=== PATIENT | female | born 1995 | race Caucasian/White ===

== ENCOUNTER 2020-05-22 09:46 | Outpatient (CLI) | payer MEDICAID, SELFPAY ==
[2020-05-24 09:04] LABS: COVID-19 RT-PCR UVMMC Result Negative (Negative)
== END 2020-05-22 09:47 | disposition home or self-care (01) ==
LOC: LBO 09:47
PROVIDERS: PCP Family Medicine; Visit Provider Family Medicine
DX: Z20.822 Contact with and (suspected) exposure to COVID-19 (principal)
CPT/HCPCS: U0003

== ENCOUNTER 2020-05-30 08:37 | Outpatient (CLI) | payer MEDICAID, SELFPAY ==
[2020-06-01 14:09] LABS: COVID-19 RT-PCR UVMMC Result Negative (Negative)
== END 2020-05-30 08:38 | disposition home or self-care (01) ==
LOC: LBO 08:37
PROVIDERS: PCP Family Medicine; Visit Provider Physician Assistant
DX: J22 Unspecified acute lower respiratory infection (principal)
CPT/HCPCS: U0003

== ENCOUNTER 2020-11-13 06:51 | Emergency (ER) | payer MEDICAID, SELFPAY ==
[2020-11-13 07:00] VITALS: BP 117/67; PULSE 85; RESP 16; TEMP 37; O2SAT 100
--- NOTE | 2020-11-13 07:07 | ED.GENADUL_ITS ---
Discharge Plan Disposition Patient Disposition: HOME Condition: Stable Discharge Details Clinical Impression: Dental infection, Acute effusion of right ear, Chronic cough Primary Care Provider: Cate Beckman ED Provider: Antoinette Marquis Home Meds and New Rx's Prescriptions: New albuterol sulfate 90 mcg/actuation aerosol powdr breath activated 2 inh IH Q6H PRN (Reason: shortness of breath or wheezing) Qty: 1 RF: 0 methylprednisolone [Methylpred DP] 4 mg tablets,dose pack 4 mg PO PER PKG DIR MDD see package directions 6 Days Qty: 6 RF: 0 amoxicillin-pot clavulanate [Augmentin] 875-125 mg tablet 1 tab PO BID 10 Days Qty: 20 RF: 0 Continued albuterol sulfate [Proventil HFA] 90 mcg/actuation HFA aerosol inhaler 2 puff inhalation Q6H PRN (Reason: shortness of breath or wheezing) Qty: 8.5 RF: 0 acetaminophen [Tylenol Extra Strength] 500 mg Tablet 1,000 mg PO QID PRNRF: 0 Discharge Instructions Instructions: Ear Infection (ED), Toothache (ED), Acute Cough (ED) Additional Instructions: Drink plenty of fluids and get plenty of rest. Your prescriptions have been sent electronically to your pharmacy. Call the pharmacy to make sure your prescriptions are ready before pickup. Take the pr escriptions as directed. Take the antibiotic and steroids as directed until finished. Use the albuterol inhaler as needed and directed for coughing or shortness of breath. You can take pecm-kqf-zfvokhq cough and cold medications such as Robitussin or Mucinex to help with coughing and chest congestion. Follow-up with your upcoming dentist appointment in the next few weeks. Return immediately to the emergency department if you develop any worsening or new concerning symptoms. Discharge Data Discharge Physician: Antoinette Marquis Medical Decision Making 25-year-old female presents with right upper dental pain and cough for the past 8 weeks, worse recently with radiation from her tooth to her right ear and right throat and worsening cough with postnasal drip and occasional shortness of breath. Vitals within normal limits. Patient appears comfortable and nontoxic. She is tearful and states that she has been overwhelmed at home with childcare and lack of sleep due to her dental pain. Her right TM notes an effusion but no drainage. Posterior oropharynx appears normal. She has minimal bilateral anterior cervical lymphadenopathy. There is no drooling, trismus or submandibular swelling. Her lungs are clear bilaterally. No meningeal signs. No nuchal rigidity. History and presentation appears likely consistent with either dental caries with radiation to her oropharynx causing lymphadenopathy and worsening postnasal drip with potential development of right ear effusion. History and presentation does not appear consistent with bronchitis or pneumonia at this time. Do not feel indication for chest x-ray patient is now agreeable. We will treat potential dental infection and ear infection with antibiotic and a Medrol Dosepak. This could potentially also cover for potential throat or lung infection although this appears less likely. We will also given albuterol inhaler as needed. Advised to follow-up with her dentist as scheduled. Usual and customary return precautions given prior to discharge. HPI General Mode of arrival: ambulatory . Date/Time Provider Initiated Documentation: 11/13/20 07:06 . Limitations to Documentation: no limitations . Information obtained by: patient . HPI Narrative: Patient is a 25-year-old female who presents to the ED with multiple complaints including right upper dental pain and cough for the past 8 months. She states her dental pain has now radiated to her right throat and upper neck for the past 2 weeks and to her ear for the past 2 days. She states she now feels that she has increased postnasal drip and is coughing up yellow sputum. She does admit to occasional shortness of breath but denies any at present. She states she has been able to eat and drink and denies any vomiting. She denies fever, posterior neck pain, headache. She states she has an appointment with a holistic dentist today for her right upper dental pain and an appointment with her regular dentist in the next few weeks. She states she was treated for bronchitis several months ago and has spoken to her doctor about her chronic dental pain and cough for the past several months but states she has not received any additional treatment. Related Data Home Medications Medication Instructions Recorded Confirmed albuterol sulfate 90 mcg/actuation 2 puff INHALATION Q6H PRN #8.5 g 05/29/20 11/13/20 aerosol inhaler acetaminophen [Tylenol Extra 1,000 mg PO QID PRN 11/13/20 11/13/20 Strength] albuterol sulfate 2 inh IH Q6H PRN #1 each 11/13/20 amoxicillin-pot clavulanate 1 tab PO BID 10 Days #20 tab 11/13/20 [Augmentin] methylprednisolone [Methylpred DP] 4 mg PO PER PKG DIR 6 Days #6 dose 11/13/20 pk MDD see package directions Previous Rx's Medication Instructions Recorded albuterol sulfate 90 mcg/actuation 2 puff INHALATION Q6H PRN #8.5 g 05/29/20 aerosol inhaler albuterol sulfate 2 inh IH Q6H PRN #1 each 11/13/20 amoxicillin-pot clavulanate 1 tab PO BID 10 Days #20 tab 11/13/20 [Augmentin] methylprednisolone [Methylpred DP] 4 mg PO PER PKG DIR 6 Days #6 dose 11/13/20 pk MDD see package directions Allergies Allergy/AdvReac Type Severity Reaction Status Date / Time No Known Allergies Allergy Unverified 11/13/20 07:06 General Stated Complaint: DentalOral MARTA: 4 Review of Systems All systems reviewed & are unremarkable except as noted in HPI and below Constitutional Constitutional: Reports as per HPI, Denies chills and Denies fever(s) Eyes Eyes: Denies blurry vision ENT Ears, Nose, Mouth, and Throat: Reports dental pain, Denies dizziness, Reports sore throat and Denies throat swelling Cardiovascular Cardiovascular: Denies chest pain and Denies dyspnea Respiratory Respiratory: Reports cough and Denies dyspnea Gastrointestinal Gastrointestinal: Denies abdominal pain, Denies diarrhea and Denies vomiting Genitourinary Genitourinary: Denies hematuria and Denies dysuria Musculoskeletal Musculoskeletal: Denies back pain and Denies numbness Integumentary/Breasts Skin/Breast: Denies lesions and Denies rash Neurologic Neurologic: Denies dizziness, Denies localized weakness and Denies numbness Allergic/Immunologic Allergic/Immunologic: Denies throat swelling [facility] Medical History (Updated 11/13/20 @ 08:42 by Antoinette Marquis DO) No significant past medical history Surgical History (Updated 11/13/20 @ 08:42 by Antoinette Marquis DO) No significant past surgical history Social History Smoking/Tobacco Use Status: Former Tobacco Use Tobacco: How many years used: 10 Smoking risk assessment performed?: Yes Alcohol Intake: current Drug use: Daily Substance use type: marijuana Frequency: 5-6 times per week Seatbelt use: always Do you feel safe at home: Yes Do you feel safe in your relationship?: Yes Exam Const General: cooperative and healthy appearing Orientation: alert and awake [facility] Head: normal to inspection Ears: hearing grossly normal bilaterally, external ears normal, EAC's normal and TM abnormal wth effusion serous on the right General nose exam: external nose normal Face and sinus: normal facial exam Mouth: oral mucosae normal Teeth and gingiva: dentition normal Teeth image: 1. Tender to palpation of the approximate tooth #5. Tooth appears slightly impacted medially but there is no evidence of erythema, edema, abscess or obvious fracture. Some tenderness to palpation of surrounding teeth but no other abscess noted. Throat: posterior oropharynx normal Eyes General: appearance normal, both eyes and all related structures Eyelids: eyelids normal Pupils: PERRL EOM: EOM intact bilaterally Neck Neck: normal visual inspection Lymphatic: no lymphadenopathy noted Chest Chest: normal inspection of the chest Resp Effort & Inspection: normal respiratory effort and able to speak in complete sentences Auscultation: clear to auscultation bilaterally Cardio Rate: regular rate Rhythm: regular rhythm GI Inspection: normal to inspection Palpation: soft, not firm, no guarding, no hepatosplenomegaly, no masses and nontender Auscultation: normal bowel sounds Skin General skin exam: no rashes or lesions noted Neuro General: patient alert and patient awake Cognition: normal cognition Speech: speech normal Gait: normal gait Motor: muscle tone normal throughout Sensory Exam: no sensory deficits noted Extrem General: normal to inspection, full ROM and capillary refill normal Psych Appearance: grossly normal Mental Status: mental status grossly normal Speech and Movement: speech and movement normal Affect: normal affect Thought Process: normal Course Vital Signs Vital signs: Vital Signs Temperature 98.6 F 11/13/20 07:00 Pulse 85 11/13/20 07:00 Respiratory Rate 16 11/13/20 07:00 Blood Pressure 117/67 11/13/20 07:00 Pulse Oximetry 100 11/13/20 07:00 Temperature 98.6 F 11/13/20 07:00 Temperature Source Temporal Artery Scan 11/13/20 07:00 Pulse 85 11/13/20 07:00 Respiratory Rate 16 11/13/20 07:00 Respiratory Effort Non-Labored 11/13/20 07:04 Blood Pressure 117/67 11/13/20 07:00 Blood Pressure Position Sitting 11/13/20 07:00 Pulse Oximetry 100 11/13/20 07:00 Oxygen Delivery Method Room Air 11/13/20 07:00 Oxygen Flow Rate 0 11/13/20 07:00 Pain Level 8 11/13/20 07:00
== END 2020-11-13 07:55 | disposition home or self-care (01) ==
PROVIDERS: Emergency Provider Physician Assistant; PCP Family Medicine
DX: R05 Cough; R09.82 Postnasal drip; Z87.891 Personal history of nicotine dependence; H65.191 Other acute nonsuppurative otitis media, right ear; K04.7 Periapical abscess without sinus
CPT/HCPCS: 81025; 99283

== ENCOUNTER 2020-11-20 04:20 | Outpatient (CLI) | payer MEDICAID, SELFPAY ==
[2020-11-20 12:46] LABS: Abs Immature Grans 0.02 10^3/uL (0.0-0.06); Absolute Basophil Count 0.06 10^3/uL (0.0-0.2); Absolute Eosinophil Count 0.16 10^3/uL (0.0-0.7); Absolute Lymphocyte Count 2.06 10^3/uL (1.2-3.4); Absolute Monocyte Count 0.41 10^3/uL (0.1-0.8); Absolute Neutrophil Count 2.66 10^3/uL (1.2-6.7); Basophils % 1.1; HCT 34.3 % (36.0-46.0); HGB 11.7 g/dL (11.2-15.7); Immature Grans % 0.4; Lymphocytes % 38.4; MCHC 34.1 % (32.0-36.0); MCV 84.9 fL (80-95); MPV 9.7 fL (8.0-11.0); Monocytes % 7.6; Neutrophils % 49.5; Nucleated RBC 0 %; Platelet Count 299 10^3/uL (130-400); RBC 4.04 10^6/uL (3.93-5.22); RDW 12.8 % (11.7-14.6); RDW-SD 39.5 fL; WBC 5.37 10^3/uL (4.4-10.8)
[2020-11-20 12:59] LABS: ESR 1 mm/hr (0-20)
[2020-11-20 14:30] LABS: ALT 14 U/L (14-59); AST 10 U/L (15-37); Albumin 4.3 g/dL (3.4-5.0); Alkaline Phosphatase 42 U/L (46-116); Anion Gap 8.3 mmol/L (3-11); BUN 12 mg/dL (7-18); Bilirubin, Total 0.4 mg/dL (0.2-1.0); C-Reactive Protein 0.08 mg/dL (0.0-0.3); CO2 25.7 mmol/L (21.0-32.0); Calcium 9.1 mg/dL (8.5-10.1); Chloride 106 mmol/L (98-107); Glucose 98 mg/dL (74-106); Sodium 140 mmol/L (136-145); TSH 0.33 uIU/mL (0.36-3.74); Total Protein 7.4 g/dL (6.4-8.2)
[2020-11-21 12:17] LABS: FREE T4 1.21 ng/dL (0.76-1.46)
[2020-11-21 16:37] LABS: T3, Total 117 ng/dL (97-169)
== END 2020-11-20 04:21 | disposition home or self-care (01) ==
LOC: LBO 04:21
PROVIDERS: PCP Family Medicine; Visit Provider Family Medicine
DX: R61 Generalized hyperhidrosis (principal); R53.83 Other fatigue; R79.89 Other specified abnormal findings of blood chemistry
CPT/HCPCS: 36415; 80053; 85652; 84439; 84443; 84480; 85025; 86140

== ENCOUNTER 2020-12-24 01:32 | Outpatient (CLI) | payer MEDICAID, SELFPAY ==
--- NOTE | 2020-12-24 07:00 | DI.RAD_ITS ---
Exam(s) RF BARIUM SWALLOW EXAM: RF BARIUM SWALLOW CLINICAL HISTORY: globus sensation, R09.89 TECHNIQUE: 2D and realtime digital imaging was performed. CONTRAST MATERIAL: Oral barium Oral water soluble contrast was administered. COMPARISON: No exams were available for comparison FINDINGS: CHEST X-RAY: The heart and pulmonary vasculature are within normal limits. The lungs are clear. No pl eural effusion or pneumothorax is present. The bones are within normal limits for the patient's age. ESOPHAGRAM: The esophagus is patent with no evidence for erosions, fold thickening, strictures, or ma sses. With regards to the motility, there is a normal primary stripping wave. No tertiary contraction s were noted. There is no hiatal hernia or gastroesophageal reflux. There was some delay in passage o f a barium tablet beyond the level of the aortic arch. The tablet eventually passed with sips of cristy er. The patient was able to sense the presence of the barium tab at this level. IMPRESSION: 1. No ulcer, stricture or mass. 2. Slight delay in passage of a barium tablet beyond the level of the aortic arch. No esophageal str icture or mass is seen at this level. RADIATION DOSE DELIVERED: Ka,r= mGy
[2020-12-24] MEDS: Barium Sulfate 60% W/V 355 ML BTL PO (09:43)
== END 2020-12-24 01:52 ==
PROVIDERS: PCP Family Medicine; Visit Provider Family Medicine
DX: R09.89 Other specified symptoms and signs involving the circulatory and respiratory systems (principal)
CPT/HCPCS: 74221; J3490

== ENCOUNTER 2021-02-03 03:35 | Outpatient (CLI) | payer MEDICAID, SELFPAY ==
[2021-02-03 22:25] LABS: Thyroglobulin Antibody 73 U/mL (<=60); Thyroperoxidase Antibody 813 U/mL (<=60)
[2021-02-06 14:56] LABS: Thyroid Stimulating Immunoglob <1.0 TSI index (<=1.3)
== END 2021-02-03 03:36 | disposition home or self-care (01) ==
LOC: LBO 03:35
PROVIDERS: PCP Family Medicine; Visit Provider Otolaryngology
DX: R61 Generalized hyperhidrosis (principal); R09.89 Other specified symptoms and signs involving the circulatory and respiratory systems
CPT/HCPCS: 36415; 86376; 84445

== ENCOUNTER 2021-05-04 11:24 | Outpatient (REF) | payer MEDICAID, SELFPAY ==
--- NOTE | 2021-05-04 10:40 | PAPFT_PTH ---
PATIENT: Renetta Colindres LOC: N U#:[id number] AGE/SX: 25/F ROOM: RE05/04/[address]: ABENA Velazquez : 1995 BED: DIS: 05/04/2021 SPEC #: [id number] RECD: 05/04/21 12:45 STATUS: SYDNIE REQ #: [id number] DUNIA: 05/04/21 10:[address]: Luisa Clemons DEPT: [facility] Cytology RECD BY: Iwona Low ENTERED: 05/04/21 12:46 SP TYPE: PAPFT CHANTELLE DR: Jeffery Berman Tissues: 1 - CX/ENDOCX FOR PAP SMEARS Procedures: PAP THIN PREP/[facility] Screening Comments: [id number]
[2021-05-05 15:10] LABS: Chlamydia Result Negative (Negative); GC Result Negative (Negative)
== END 2021-05-04 11:25 | disposition home or self-care (01) ==
LOC: LBN 11:24
PROVIDERS: PCP Family Medicine; Visit Provider Nurse Practitioner Family
DX: Z11.3 Encounter for screening for infections with a predominantly sexual mode of transmission (principal); Z12.4 Encounter for screening for malignant neoplasm of cervix
CPT/HCPCS: 87491; 87591; 88142

== ENCOUNTER 2021-05-11 01:37 | Outpatient (CLI) | payer MEDICAID, SELFPAY ==
[2021-05-11 09:42] LABS: HGB 11.9 g/dL (11.2-15.7); MCH 28.5 pg (27.0-33.0); MCHC 33.1 % (32.0-36.0); MCV 86.1 fL (80-95); MPV 10.2 fL (8.0-11.0); Platelet Count 346 10^3/uL (130-400); RBC 4.18 10^6/uL (3.93-5.22); RDW 12.7 % (11.7-14.6); RDW-SD 39.8 fL; WBC 4.63 10^3/uL (4.4-10.8)
[2021-05-11 10:59] LABS: Iron 57 ug/dL (50-170); Total Iron Binding Capacity 310 ug/dL (250-450); Transferrin Sat 18 % (15-50)
[2021-05-11 11:15] LABS: Anion Gap 9.3 mmol/L (3-11); BUN 10 mg/dL (7-18); CO2 28.7 mmol/L (21.0-32.0); CREATININE 0.8 mg/dL (0.55-1.02); Calcium 9.3 mg/dL (8.5-10.1); Chloride 103 mmol/L (98-107); Ferritin 12 ng/mL (8-252); Glucose 69 mg/dL (74-106); Potassium 3.9 mmol/L (3.5-5.1); Sodium 141 mmol/L (136-145); TSH 1.04 uIU/mL (0.36-3.74)
[2021-05-11 11:33] LABS: FREE T4 0.94 ng/dL (0.76-1.46)
[2021-05-11 18:02] LABS: Thyroglobulin Antibody 91 U/mL (<=60); Thyroperoxidase Antibody 1033 U/mL (<=60)
== END 2021-05-11 01:38 | disposition home or self-care (01) ==
LOC: LBO 01:37
PROVIDERS: PCP Family Medicine; Visit Provider Family Medicine
DX: E06.3 Autoimmune thyroiditis (principal); R53.83 Other fatigue
CPT/HCPCS: 36415; 80048; 85027; 86376; 82728; 83540; 83550; 84439; 84443; 84481

== ENCOUNTER 2021-05-20 00:13 | Outpatient (CLI) | payer MEDICAID, SELFPAY ==
--- NOTE | 2021-05-20 07:00 | DI.US_ITS ---
Exam(s) US THYROID EXAM: US THYROID CLINICAL HISTORY: enlarged thyroid,FATIGUE,HASHIMITOS THYROIDITIS. TECHNIQUE: Ultrasound thyroid performed using standard protocol. COMPARISON: No exams were available for comparison FINDINGS: Both thyroid lobes exhibit normal size. Right thyroid lobe measures 1.5 cm AP x 1.5 cm wide by 4.9 c m craniocaudal. The left thyroid lobe measures 1.4 cm AP x 1.4 cm wide by 5.2 cm craniocaudal. Isth mus thickness is also normal. The echo architecture of the parenchyma is relatively homogeneous. There are no discernible nodules. No asymmetric hyperemia. No adenopathy evident. IMPRESSION: Unremarkable appearing thyroid gland. DATA REPOSITORY:
== END 2021-05-20 00:33 ==
PROVIDERS: PCP Family Medicine; Visit Provider Family Medicine
DX: E06.3 Autoimmune thyroiditis (principal); R53.83 Other fatigue
CPT/HCPCS: 76536

== ENCOUNTER 2021-06-30 02:35 | Outpatient (CLI) | payer MEDICAID, SELFPAY ==
[2021-06-30 17:43] LABS: Thyroperoxidase Antibody 831 U/mL (<=60)
[2021-06-30 17:47] LABS: Thyroglobulin Antibody 92 U/mL (<=60)
== END 2021-06-30 02:36 | disposition home or self-care (01) ==
LOC: LBO 02:35
PROVIDERS: PCP Family Medicine; Visit Provider Family Medicine
DX: E06.3 Autoimmune thyroiditis (principal); R53.83 Other fatigue
CPT/HCPCS: 36415; 86376; 86800

== ENCOUNTER 2021-07-08 03:14 | Outpatient (CLI) | payer MEDICAID, SELFPAY ==
[2021-07-08 18:41] LABS: TSH 0.47 uIU/mL (0.36-3.74)
[2021-07-09 14:02] LABS: Iron 35 ug/dL (50-170); Total Iron Binding Capacity 295 ug/dL (250-450); Transferrin Sat 12 % (15-50)
[2021-07-09 14:06] LABS: Vitamin D 25 Total 23.2 ng/mL (30-100)
[2021-07-09 15:03] LABS: Vitamin B12 333 pg/mL (193-986)
== END 2021-07-08 03:15 | disposition home or self-care (01) ==
LOC: LBO 03:14
PROVIDERS: PCP Family Medicine; Visit Provider Internal Medicine Endocrinology, Diabetes & Metabolism
DX: R53.83 Other fatigue (principal); E06.3 Autoimmune thyroiditis
CPT/HCPCS: 36415; 82306; 82533; 82607; 83540; 83550; 84443

== ENCOUNTER 2021-07-15 20:37 | Emergency (ER) | payer MEDICAID, SELFPAY ==
--- NOTE | 2021-07-15 20:30 | RT.EKG_ITS ---
APPROVED REPORT Exam: Resting ECG Reason for Exam: chest pain Patient Location: E HR:78 bpm ECG Measurements Heart Rate 78 AXIS KS 183 P 65 QRSd 83 QRS 62 QT 362 T 53 QTc 414 Conclusion Sinus rhythm...normal P axis, V-rate 60- 99 PHysician: no stemi, no [id number]
[2021-07-15 20:55] VITALS: BP 126/60; PULSE 102; RESP 18; TEMP 37; O2SAT 99
[2021-07-15 21:31] LABS: Abs Immature Grans 0.02 10^3/uL (0.0-0.06); Absolute Basophil Count 0.05 10^3/uL (0.0-0.2); Absolute Lymphocyte Count 2.05 10^3/uL (1.2-3.4); Absolute Monocyte Count 0.56 10^3/uL (0.1-0.8); Absolute Neutrophil Count 5.08 10^3/uL (1.2-6.7); Basophils % 0.6; Eosinophils % 2.5; HCT 34.2 % (36.0-46.0); HGB 11.2 g/dL (11.2-15.7); Immature Grans % 0.3; Lymphocytes % 25.8; MCH 28.4 pg (27.0-33.0); MCHC 32.7 % (32.0-36.0); MCV 86.8 fL (80-95); MPV 10.1 fL (8.0-11.0); Neutrophils % 63.8; Nucleated RBC 0 %; Platelet Count 311 10^3/uL (130-400); RBC 3.94 10^6/uL (3.93-5.22); RDW 12.7 % (11.7-14.6); RDW-SD 40.4 fL; WBC 7.96 10^3/uL (4.4-10.8)
--- NOTE | 2021-07-15 21:31 | ED.GENADUL_ITS ---
Discharge Plan Disposition Patient Disposition: HOME Condition: Good Discharge Details Clinical Impression: Near syncope, Episodic lightheadedness Primary Care Provider: Jeffery Berman ED Provider: Karthikeyan Scott Home Meds and New Rx's Prescriptions: Continued fluoxetine 10 mg capsule 10 mg PO DAILY Qty: 90 3RF cholecalciferol (vitamin D3) 10 mcg/mL (400 unit/mL) drops 20 mcg PO DAILY 0RF Discharge Instructions Instructions: Near Syncope (ED) Additional Instructions: At this time your work-up is very reassuring. Your vital signs are normal. Your blood work shows a normal hemoglobin level, your electrolytes and renal function are normal. Evaluation of your heart shows no significant abnormalities your thyroid function is normal. I suspect that dehydration is likely a notable cause and component of your symptoms. Please drink 10 to 12 cups of water per day. Follow-up closely with your primary care provider for reassessment. If you notice any worsening of your symptoms, or any new symptoms such as vomiting, diarrhea, fever, chills, shortness of breath, chest pain, numbness, weakness, or fainting , please return immediately to the emergency department for reevaluation. Please follow up with your primary care provider as soon as possible for reassessment and reevaluation. As always, it was a pleasure participating in your medical care today. Referrals: Jeffery Berman MD [Primary Care Provider] - Medical Decision Making 26-year-old female with a past medical history of Vimal's thyroiditis, patient has history of multiple lightheaded episodes in 2013, presents today for lightheadedness and near syncope. Patient states that 1 hour prior to arrival she was standing and suddenly felt very lightheaded, her vision turned black and white, she felt somewhat sick, and cramping in the abdomen. She laid down, her symptoms slowly began to improve. She denies any significant chest pain, cough, pleuritic chest pain, fever, chills, shortness of breath. She denies hitting her head. She did not syncopized. She denies any headache or neck pain. She denies any visual changes. Her last few days she has admitted to some mild achiness over her right eyelid, but she has been placing warm compresses over the right upper eyelid which have been helping. Denies PE risk factors such as recent long car rides, immobilization, recent surgery, prior history of DVT or PE, family history of PE or DVT, morbid obesity, ex ogenous estrogen and smoking, hemoptysis, history of cancer. Denies any family history of sudden cardiac . No other complaints at this time. Physical exam demonstrates normal blood pressure, no abdominal tenderness, normal lung sounds. Normal neurologic assessment. Patient does admit that she was outside quite a bit today and did not drink much. Mucous membranes are dry. This may have been a simple cause of her symptoms secondary to mild dehydration, however with her thyroid history I do feel that further assessment is indicated for that. Screening EKG shows no significant abnormality. We will get a proBNP to evaluate for signs of heart strain, will rehydrate, monitor closely and reassess. 10:51 PM Laboratory work-up is returned normal, proBNP normal, troponin normal, thyroid function normal, urinalysis negative. Cardiac monitoring during the patient stay here has showed no abnormalities whatsoever. EKG benign. D-dimer negative. Patient received a liter of fluids and feels well. Neurologic assessment still normal. I suspect that because the patient symptoms is likely related to dehydration. She has no headache, no neck pain, no chest pain or shortness of breath. Symptoms inconsistent with pulmonary embolism, aneurysm, brain mass. Bedside limited cardiac ultrasound demonstrates normal contractility, no evidence of pericardial effusion. No signs of right heart strain. Symptoms appearing consistent with fatal dysrhythmia. Recommend continued hydration at home. Discussed red flags for for which to return. I have extensively reviewed the treatment plan and discharge instructions with the patient. I have addressed all patient concerns at this time. The patient was made aware of what symptoms to monitor for that would warrant a return to the emergency department. Discussed the plan with the patient, they demonstrate verbal understanding and agreement with our assessment and plan at this time. The documentation in this chart was dictated using [employer] dictation software. Please excuse any dictation errors. HPI General Date/Time Provider Initiated Documentation: 07/15/21 20:44 . HPI Narrative: 26-year-old female with a past medical history of Vimal's thyroiditis, patient has history of multiple lightheaded episodes in 2013, presents today for lightheadedness and near syncope. Patient states that 1 hour prior to arrival she was standing and suddenly felt very lightheaded, her vision turned black and white, she felt somewhat sick, and cramping in the abdomen. She laid down, her symptoms slowly began to improve. She denies any significant chest pain, cough, pleuritic chest pain, fever, chills, shortness of breath. She denies hitting her head. She did not syncopized. She denies any headache or neck pain. She denies any visual changes. Her last few days she has admitted to some mild achiness over her right eyelid, but she has been placing warm compresses over the right upper eyelid which have been helping. Denies PE risk factors such as recent long car rides, immobilization, recent surgery, prior history of DVT or PE, family history of PE or DVT, morbid obesity, exogenous estrogen and smoking, hemoptysis, history of cancer. Denies any family history of sudden cardiac . No other complaints at this time. Related Data Home Medications Medication Instructions Recorded Confirmed cholecalciferol (vitamin D3) 10 20 mcg PO DAILY ml 05/04/21 05/04/21 mcg/mL (400 unit/mL) oral drops fluoxetine 10 mg capsule 10 mg PO DAILY #90 cap 05/04/21 05/04/21 Previous Rx's Medication Instructions Recorded fluoxetine 10 mg capsule 10 mg PO DAILY #90 cap 05/04/21 Allergies Allergy/AdvReac Type Severity Reaction Status Date / Time No Known Allergies Allergy Unverified 06/12/21 11:18 General Stated Complaint: Palpitatns MARTA: 3 Review of Systems All systems reviewed & are unremarkable except as noted in HPI and below PFSH All Active Problems (Updated 07/15/21 @ 22:43 by Karthikeyan Scott DO) Near syncope (Acute) Episodic lightheadedness (Acute) General counseling and advice for contraceptive management (Acute) Depression (Chronic) Vimal's thyroiditis (Acute) 01/2021- enlarged thyroid, positive AB,euthyroid Globus sensation (Acute) Medical History No significant past medical history PTSD (post-traumatic stress disorder) Surgical History No significant past surgical history [place] teeth extracted 06/2012 Family History Mother Thyroid disorder Social History Smoking/Tobacco Use Status: Former Tobacco Use Tobacco: How many years used: 10 Smoking risk assessment performed?: Yes Alcohol Intake: never Drug use: Daily Substance use type: marijuana Household members: significant other and children Number of Children: 2 Frequency: 5-6 times per week Seatbelt use: always Do you feel safe at home: Yes Do you feel safe in your relationship?: Yes Exam Narrative Exam Narrative: 1.Const: Well-nourished, Well-developed, appearing stated age 2.Eyes: PERRL, no conjunctival injection, and symmetrical lids. 3.ENT: Atraumatic external nose and ears. Dry MM. Neck: Symmetric, trachea midline, No thyromegaly. No significant swelling or edema of the lids. No evidence of abscess, or pre or post septal cellulitis. 4.CVS: +S1/S2, No murmurs or gallops. Peripheral pulses 2+ and equal in all extremities. Brisk capillary refill in all extremities. 5.RESP: Unlabored respiratory effort. Clear to auscultation bilaterally. No wheezes rales or rhonchi 6.GI: Soft, Nontender/Nondistended, No hepatosplenomegaly. No guarding or rebound. 7.MSK: Normocephalic/Atraumatic, Extremities w/o deformity or ttp No cyanosis or clubbing, Normal movement of all extremities 8.Skin: Warm, Dry. No rashes or lesions. 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 Sensation grossly intact, no focal neurologic deficits. All 6 cardinal planes of vision are fully intact. No evidence of rotatory or vertical nystagmus. The patient demonstrated a normal obckpx-zlnc-baxmzf, good dexterity. There was no evidence of dysdiadochokinesia. Patient was able to ambulate without difficulty. There was no wide-based gait. Romberg testing was normal. Manw-qa-dxqv testing was normal. Sensation was intact bilaterally as well as muscle strength bilaterally for all extremities. Patient was able to verbalize butter cup with no slurring, or miss pronunciation. 10.Psych: (AAO) x3. Appropriate mood and affect Course Vital Signs Vital signs: Vital Signs Temperature 37 C 07/15/21 20:55 Pulse 102 H 07/15/21 20:55 Respiratory Rate 18 07/15/21 20:55 Blood Pressure 126/60 07/15/21 20:55 Pulse Oximetry 99 07/15/21 20:55 Temperature 37 C 07/15/21 20:55 Temperature Source Tympanic 07/15/21 20:55 Pulse 102 H 07/15/21 20:55 Respiratory Rate 18 07/15/21 20:55 Respiratory Effort 07/15/21 21:00 Blood Pressure 126/60 07/15/21 20:55 Blood Pressure Position Supine 07/15/21 20:55 Pulse Oximetry 99 07/15/21 20:55 Oxygen Delivery Method Room Air 07/15/21 20:55 Oxygen Flow Rate 0 07/15/21 20:55 Pain Level 4 07/15/21 20:55
[2021-07-15 21:52] LABS: ALT 16 U/L (14-59); AST 12 U/L (15-37); Albumin 4.2 g/dL (3.4-5.0); Alkaline Phosphatase 51 U/L (46-116); Anion Gap 6.7 mmol/L (3-11); BUN 17 mg/dL (7-18); Bilirubin, Total 0.3 mg/dL (0.2-1.0); CO2 30.3 mmol/L (21.0-32.0); CREATININE 0.9 mg/dL (0.55-1.02); Calcium 8.7 mg/dL (8.5-10.1); Chloride 102 mmol/L (98-107); Glucose 93 mg/dL (74-106); NT-proBNP 33 pg/mL (<300); Potassium 3.6 mmol/L (3.5-5.1); Sodium 139 mmol/L (136-145); Total Protein 7.7 g/dL (6.4-8.2); Troponin I < 50 ng/L (<or=60)
[2021-07-15 22:22] LABS: Bilirubin Negative (Negative); Blood Negative (Negative); Clarity Clear (Clear); Glucose Negative (Negative); Ketones Negative (Negative); Leukocyte Esterase Negative (Negative); Nitrite Negative (Negative); Urobilinogen 0.2 EU/dL (Up TO 0.2); pH 7.5 (5-8)
[2021-07-15 22:33] LABS: D-Dimer 143 ng/mlFEU (<500)
== END 2021-07-15 22:57 | disposition home or self-care (01) ==
PROVIDERS: Emergency Provider Student in an Organized Health Care Education/Training Program; PCP Family Medicine
DX: R55 Syncope and collapse (principal); R42 Dizziness and giddiness; R07.9 Chest pain, unspecified
CPT/HCPCS: 80053; 81025; 93005; 96360; 99284; 81003; 83880; 84443; 84484; 85025; 85379; 93010

== ENCOUNTER 2021-07-20 21:23 | Emergency (ER) | payer MEDICAID, SELFPAY ==
[2021-07-20] VITALS (18 sets, daily range): BP systolic 95–132; BP diastolic 51–74; PULSE 67–100; RESP 9–22; TEMP 36.4; O2SAT 98–100
--- NOTE | 2021-07-20 21:15 | RT.EKG_ITS ---
APPROVED REPORT Exam: Resting ECG Reason for Exam: chest pain Patient Location: E HR:69 bpm ECG Measurements Heart Rate 69 AXIS [place] 159 P 30 QRSd 88 QRS 65 QT 405 T 46 QTc 433 Conclusion Sinus rhythm...normal P axis, V-rate 60- 99
--- NOTE | 2021-07-20 21:45 | DI.RAD_ITS ---
Exam(s) XR CHEST 2V PA LATERAL EXAM: XR CHEST 2V PA LATERAL CLINICAL HISTORY: Chest tightness TECHNIQUE: 2D digital imaging was performed of the chest. Two images were obtained. PA and lateral views were obtained. COMPARISON: CR,RF RF BARIUM SWALLOW from 12/24/2020 FINDINGS: MEDIASTINUM: Normal. HEART: Normal. PULMONARY VASCULATURE: Normal. LUNGS: Clear. PLEURAL SPACE: No pleural effusion or pneumothorax. BONE:Within normal limits for the patient's age. OTHER FINDINGS:Normal. IMPRESSION: No acute pulmonary findings. DATA REPOSITORY: RADIATION DOSE DELIVERED:
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
[2021-07-20] MEDS: LORazepam 2 MG/ML VIAL 1 MG IVP (22:12)
[2021-07-20 22:22] LABS: Abs Immature Grans 0.02 10^3/uL (0.0-0.06); Absolute Basophil Count 0.09 10^3/uL (0.0-0.2); Absolute Eosinophil Count 0.18 10^3/uL (0.0-0.7); Absolute Lymphocyte Count 2.72 10^3/uL (1.2-3.4); Absolute Monocyte Count 0.57 10^3/uL (0.1-0.8); Absolute Neutrophil Count 4.85 10^3/uL (1.2-6.7); Basophils % 1.1; Eosinophils % 2.1; HCT 34.9 % (36.0-46.0); HGB 11.4 g/dL (11.2-15.7); Immature Grans % 0.2; Lymphocytes % 32.3; MCH 28.4 pg (27.0-33.0); MCHC 32.7 % (32.0-36.0); MCV 86.8 fL (80-95); MPV 9.9 fL (8.0-11.0); Monocytes % 6.8; Neutrophils % 57.5; Nucleated RBC 0 %; Platelet Count 348 10^3/uL (130-400); RBC 4.02 10^6/uL (3.93-5.22); RDW 12.6 % (11.7-14.6); RDW-SD 40.2 fL; WBC 8.43 10^3/uL (4.4-10.8)
[2021-07-20 22:31] LABS: Bilirubin Negative (Negative); Blood Moderate (Negative); Clarity Clear (Clear); Glucose Negative (Negative); Ketones Negative (Negative); Leukocyte Esterase Negative (Negative); Nitrite Negative (Negative); Specific Gravity 1.015 (1.005-1.025); Urobilinogen 0.2 EU/dL (Up TO 0.2)
[2021-07-20 22:41] LABS: Bacteria Negative HPF (Negative); C & S Indicated? No; Crystals Negative HPF (Negative); Epithelial Cells Few HPF (Negative); Mucus Trace (Negative); RBC 0-2 HPF (0-2); WBC Negative HPF (0-5)
[2021-07-20 22:57] LABS: ALT 16 U/L (14-59); AST 15 U/L (15-37); Albumin 4.6 g/dL (3.4-5.0); Alkaline Phosphatase 51 U/L (46-116); Anion Gap 12.1 mmol/L (3-11); BUN 11 mg/dL (7-18); Bilirubin, Total 0.4 mg/dL (0.2-1.0); CO2 23.9 mmol/L (21.0-32.0); CREATININE 0.8 mg/dL (0.55-1.02); Calcium 9.5 mg/dL (8.5-10.1); Chloride 105 mmol/L (98-107); Glucose 105 mg/dL (74-106); Potassium 3.5 mmol/L (3.5-5.1); Sodium 141 mmol/L (136-145); Total Protein 8.1 g/dL (6.4-8.2); Troponin I < 50 ng/L (<or=60)
[2021-07-20 23:00] LABS: D-Dimer 139 ng/mlFEU (<500)
[2021-07-20] MEDS: Normal Saline 1,000 ML 1000 ML IV (23:46)
--- NOTE | 2021-07-20 23:56 | DI.VRAD_ITS ---
PROCEDURE INFORMATION: Exam: XR Chest Exam date and time: 07/20/2021 10:50 PM Age: 26 years old Clinical indication: Pain; Other: Chest tightness TECHNIQUE: Imaging protocol: XR of the chest. Views: 2 views. COMPARISON: CT ABD PELVIS WITH CONTRAST 04/30/2017 4:07 AM FINDINGS: Lungs: There is no evidence of focal pulmonary consolidation. The pulmonary vasculature is normal. Pleural spaces: There is no evidence of pneumothorax. There are no pleural effusions present. Heart/Mediastinum: The cardiac silhouette is within normal limits. The mediastinum is normal. Bones/joints: The spine, sternum, ribs, and pectoral girdles show no evidence of acute abnormality Other findings: There are no soft tissue masses or calcifications. IMPRESSION: No active cardiopulmonary disease . Dictated and Authenticated by: Diallo Bender MD. Ordering:JAN Barajas MD
[2021-07-21] VITALS (8 sets, daily range): BP systolic 96–113; BP diastolic 48–56; PULSE 64–136; RESP 13–26; O2SAT 100
[2021-07-21] MEDS: LORazepam 1 MG TAB PO (00:49)
[2021-07-21] MEDS: LORazepam 0.5 MG TAB 2 MG PO (00:49)
== END 2021-07-21 00:54 | disposition home or self-care (01) ==
PROVIDERS: Emergency Medicine; Emergency Provider Physician Assistant; PCP Family Medicine
DX: R07.9 Chest pain, unspecified (principal); F41.9 Anxiety disorder, unspecified; R07.89 Other chest pain; R00.0 Tachycardia, unspecified; Z63.8 Other specified problems related to primary support group
CPT/HCPCS: 36415; 80053; 81025; 93005; 96361; 96374; 99284; 71046; 81003; 81015; 83735; 84484; 85025; 85379; 93010; J2060

== ENCOUNTER 2021-07-21 14:52 | Outpatient (RCR) | payer MEDICAID, SELFPAY ==
--- NOTE | 2021-07-21 16:00 | HOLTER_ITS ---
APPROVED REPORT Conclusion This is a 48-hour Holter monitor, ordered for palpitations Predominant rhythm was sinus with an average heart rate of 81. Minimum was 59, maximum 173 4 atrial premature beats were recorded A total of 14 isolated PVCs were seen There was no atrial fibrillation, no high-grade AV block, no pauses greater than 3 seconds Multiple patient symptoms were reported, described as shaking. These were all associated with sinu s rhythm
== END 2021-08-08 23:59 | disposition home or self-care (01) ==
LOC: RT 14:52
PROVIDERS: PCP Family Medicine; Visit Provider Family Medicine
DX: R00.2 Palpitations (principal); I49.1 Atrial premature depolarization; I49.3 Ventricular premature depolarization
CPT/HCPCS: 93225; 93226

== ENCOUNTER 2021-08-10 02:13 | Outpatient (CLI) | payer MEDICAID, SELFPAY ==
[2021-08-10 11:54] LABS: Iron 50 ug/dL (50-170); Total Iron Binding Capacity 315 ug/dL (250-450)
[2021-08-10 12:26] LABS: Vitamin D 25 Total 27.4 ng/mL (30-100)
[2021-08-10 12:32] LABS: FREE T4 0.86 ng/dL (0.76-1.46); TSH 0.88 uIU/mL (0.36-3.74); Vitamin B12 390 pg/mL (193-986)
[2021-08-10 21:43] LABS: T3, Total 115 ng/dL (97-169)
[2021-08-14 18:33] LABS: Thyroid Stimulating Immunoglob <1.0 TSI index (<=1.3)
== END 2021-08-10 02:14 | disposition home or self-care (01) ==
LOC: LBO 02:13
PROVIDERS: PCP Family Medicine; Visit Provider Internal Medicine Endocrinology, Diabetes & Metabolism
DX: E06.3 Autoimmune thyroiditis (principal); R53.82 Chronic fatigue, unspecified; E55.9 Vitamin D deficiency, unspecified; D50.8 Other iron deficiency anemias; Z86.2 Personal history of diseases of the blood and blood-forming organs and certain disorders involving the immune mechanism
CPT/HCPCS: 36415; 82306; 82607; 83540; 83550; 84439; 84443; 84445; 84480

== ENCOUNTER 2021-09-05 12:41 | Outpatient (REF) | payer MEDICAID, SELFPAY | END 2021-09-05 12:42 | disposition home or self-care (01) | LOC: NCHCN 12:41 | PROVIDERS: PCP Family Medicine; Visit Provider Nurse Practitioner Family | DX: J02.9 Acute pharyngitis, unspecified (principal) | CPT/HCPCS: 87070 ==

== ENCOUNTER 2021-09-09 04:03 | Outpatient (CLI) | payer MEDICAID, SELFPAY ==
[2021-09-09 17:35] LABS: TSH 3.43 uIU/mL (0.36-3.74)
== END 2021-09-09 04:04 | disposition home or self-care (01) ==
LOC: LBO 04:04
PROVIDERS: PCP Family Medicine; Visit Provider Internal Medicine Endocrinology, Diabetes & Metabolism
DX: E06.3 Autoimmune thyroiditis (principal); R53.82 Chronic fatigue, unspecified
CPT/HCPCS: 36415; 84443

== ENCOUNTER 2021-10-01 03:31 | Outpatient (CLI) | payer MEDICAID, SELFPAY ==
[2021-10-01 12:27] LABS: TSH 1.08 uIU/mL (0.36-3.74)
[2021-10-01 22:16] LABS: T3, Total 103 ng/dL (97-169)
[2021-10-07 17:17] LABS: Thyroid Stimulating Immunoglob <1.0 TSI index (<=1.3)
== END 2021-10-01 03:32 | disposition home or self-care (01) ==
LOC: LBO 03:31
PROVIDERS: PCP Nurse Practitioner Family; Visit Provider Internal Medicine Endocrinology, Diabetes & Metabolism
DX: E06.3 Autoimmune thyroiditis (principal); R53.82 Chronic fatigue, unspecified
CPT/HCPCS: 36415; 84439; 84443; 84445; 84480

== ENCOUNTER 2021-11-13 09:58 | Outpatient (CLI) | payer MEDICAID, SELFPAY ==
[2021-11-13 10:56] LABS: Iron 89 ug/dL (50-170); Total Iron Binding Capacity 393 ug/dL (250-450); Transferrin Sat 23 % (15-50)
[2021-11-13 11:10] LABS: TSH 0.88 uIU/mL (0.36-3.74); Vitamin B12 252 pg/mL (193-986)
[2021-11-13 11:33] LABS: FREE T4 0.97 ng/dL (0.76-1.46)
[2021-11-13 18:06] LABS: T3, Total 117 ng/dL (97-169)
[2021-11-16 06:24] LABS: Vitamin D 25 Total 29.5 ng/mL (30-100)
[2021-11-19 20:01] LABS: Thyroid Stimulating Immunoglob <1.0 TSI index (<=1.3)
== END 2021-11-13 09:59 | disposition home or self-care (01) ==
LOC: LBO 09:58
PROVIDERS: PCP Nurse Practitioner Family; Visit Provider Internal Medicine Endocrinology, Diabetes & Metabolism
DX: E06.3 Autoimmune thyroiditis (principal); R53.82 Chronic fatigue, unspecified; E55.9 Vitamin D deficiency, unspecified; D50.8 Other iron deficiency anemias
CPT/HCPCS: 36415; 82306; 82533; 82607; 83540; 83550; 84439; 84443; 84445; 84480; 84481

== ENCOUNTER 2021-12-28 03:24 | Outpatient (CLI) | payer MEDICAID, SELFPAY ==
[2021-12-28 18:23] LABS: TSH 1.68 uIU/mL (0.36-3.74)
== END 2021-12-28 03:25 | disposition home or self-care (01) ==
LOC: LBO 03:24
PROVIDERS: PCP Nurse Practitioner Family; Visit Provider Internal Medicine Endocrinology, Diabetes & Metabolism
DX: E06.3 Autoimmune thyroiditis (principal); R53.82 Chronic fatigue, unspecified; E55.9 Vitamin D deficiency, unspecified; D50.8 Other iron deficiency anemias
CPT/HCPCS: 36415; 84443

== ENCOUNTER 2022-02-15 03:05 | Outpatient (CLI) | payer MEDICAID, SELFPAY ==
[2022-02-15 14:50] LABS: TSH 0.71 uIU/mL (0.36-3.74); Vitamin B12 377 pg/mL (193-986)
[2022-02-15 14:59] LABS: Vitamin D 25 Total 26.8 ng/mL (30-100)
== END 2022-02-15 03:06 | disposition home or self-care (01) ==
LOC: LBO 03:05
PROVIDERS: PCP Nurse Practitioner Family; Visit Provider Internal Medicine Endocrinology, Diabetes & Metabolism
DX: E06.3 Autoimmune thyroiditis (principal); R53.82 Chronic fatigue, unspecified; E55.9 Vitamin D deficiency, unspecified; D50.8 Other iron deficiency anemias
CPT/HCPCS: 36415; 82306; 82607; 84443

== ENCOUNTER 2022-03-31 02:09 | Outpatient (CLI) | payer MEDICAID, SELFPAY ==
[2022-03-31 08:43] LABS: TSH 0.87 uIU/mL (0.36-3.74); Vitamin B12 436 pg/mL (193-986)
[2022-03-31 09:33] LABS: Vitamin D 25 Total 21.2 ng/mL (30-100)
== END 2022-03-31 02:10 | disposition home or self-care (01) ==
LOC: LBO 02:09
PROVIDERS: PCP Nurse Practitioner Family; Visit Provider Internal Medicine Endocrinology, Diabetes & Metabolism
DX: E06.3 Autoimmune thyroiditis (principal); R53.82 Chronic fatigue, unspecified; E55.9 Vitamin D deficiency, unspecified; D50.8 Other iron deficiency anemias
CPT/HCPCS: 36415; 82306; 82607; 84443

== ENCOUNTER 2022-05-06 02:33 | Outpatient (CLI) | payer MEDICAID, SELFPAY ==
[2022-05-06 17:55] LABS: Vitamin D 25 Total 25.3 ng/mL (30-100)
[2022-05-06 18:00] LABS: TSH 1.01 uIU/mL (0.36-3.74); Vitamin B12 426 pg/mL (193-986)
== END 2022-05-06 02:34 | disposition home or self-care (01) ==
LOC: LBO 02:33
PROVIDERS: PCP Nurse Practitioner Family; Visit Provider Internal Medicine Endocrinology, Diabetes & Metabolism
DX: E06.3 Autoimmune thyroiditis (principal); R53.82 Chronic fatigue, unspecified; E55.9 Vitamin D deficiency, unspecified; D50.9 Iron deficiency anemia, unspecified; Z86.2 Personal history of diseases of the blood and blood-forming organs and certain disorders involving the immune mechanism
CPT/HCPCS: 36415; 82306; 82607; 84443

== ENCOUNTER 2022-06-10 03:45 | Outpatient (CLI) | payer MEDICAID, SELFPAY ==
[2022-06-10 13:42] LABS: Vitamin D 25 Total 27.5 ng/mL (30-100)
[2022-06-10 13:50] LABS: Vitamin B12 631 pg/mL (193-986)
== END 2022-06-10 03:46 | disposition home or self-care (01) ==
LOC: LBO 03:45
PROVIDERS: PCP Nurse Practitioner Family; Visit Provider Internal Medicine Endocrinology, Diabetes & Metabolism
DX: E06.3 Autoimmune thyroiditis (principal); R53.82 Chronic fatigue, unspecified; E55.9 Vitamin D deficiency, unspecified; D50.8 Other iron deficiency anemias; Z86.2 Personal history of diseases of the blood and blood-forming organs and certain disorders involving the immune mechanism
CPT/HCPCS: 36415; 82306; 82607; 84443

== ENCOUNTER 2022-07-27 09:19 | Emergency (ER) | payer MEDICAID, SELFPAY ==
[2022-07-27 09:22] VITALS: BP 105/67; PULSE 75; RESP 18; TEMP 36; O2SAT 100
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
== END 2022-07-27 09:36 | disposition home or self-care (01) ==
PROVIDERS: Emergency Provider Emergency Medicine; PCP Nurse Practitioner Family
DX: S00.33XA Contusion of nose, initial encounter (principal)
CPT/HCPCS: 99281; 99282

== ENCOUNTER 2022-08-10 04:57 | Outpatient (CLI) | payer MEDICAID, SELFPAY ==
[2022-08-10 09:47] LABS: TSH 0.77 uIU/mL (0.36-3.74)
[2022-08-10 10:21] LABS: Vitamin D 25 Total 29.1 ng/mL (30-100)
[2022-08-11 08:39] LABS: IgA 170 mg/dL (85-499)
[2022-08-12 12:15] LABS: Tissue Transglutaminase IgA <1.2 U/mL (<4.0)
== END 2022-08-10 04:58 | disposition home or self-care (01) ==
LOC: LBO 04:57
PROVIDERS: PCP Nurse Practitioner Family; Visit Provider Internal Medicine Endocrinology, Diabetes & Metabolism
DX: G89.29 Other chronic pain (principal); R10.9 Unspecified abdominal pain; E06.3 Autoimmune thyroiditis; E55.9 Vitamin D deficiency, unspecified
CPT/HCPCS: 36415; 82306; 82784; 82607; 84443

== ENCOUNTER 2022-10-08 01:41 | Outpatient (CLI) | payer MEDICAID, SELFPAY | END 2022-10-08 01:42 | disposition home or self-care (01) | LOC: LBO 01:41 | PROVIDERS: PCP Nurse Practitioner Family; Visit Provider Internal Medicine Endocrinology, Diabetes & Metabolism | DX: E06.3 Autoimmune thyroiditis (principal); E55.9 Vitamin D deficiency, unspecified | CPT/HCPCS: 36415; 82306; 84443 ==

== ENCOUNTER 2023-01-05 03:05 | Outpatient (CLI) | payer MEDICAID, SELFPAY ==
[2023-01-05 09:48] LABS: TSH 1.06 uIU/mL (0.36-3.74)
[2023-01-05 10:01] LABS: Vitamin D 25 Total 32.7 ng/mL (30-100)
== END 2023-01-05 03:06 | disposition home or self-care (01) ==
PROVIDERS: PCP Nurse Practitioner Family; Visit Provider Internal Medicine Endocrinology, Diabetes & Metabolism
DX: E06.3 Autoimmune thyroiditis (principal); E55.9 Vitamin D deficiency, unspecified
CPT/HCPCS: 36415; 82306; 84443

== ENCOUNTER 2023-02-22 01:40 | Outpatient (CLI) | payer MEDICAID, SELFPAY ==
[2023-02-22 18:24] LABS: TSH 1.48 uIU/mL (0.36-3.74)
[2023-02-22 20:10] LABS: Vitamin D 25 Total 25.8 ng/mL (30-100)
== END 2023-02-22 01:41 | disposition home or self-care (01) ==
LOC: LBO 01:41
PROVIDERS: PCP Nurse Practitioner Family; Visit Provider Internal Medicine Endocrinology, Diabetes & Metabolism
DX: E06.3 Autoimmune thyroiditis (principal); E55.9 Vitamin D deficiency, unspecified
CPT/HCPCS: 36415; 82306; 84443

== ENCOUNTER 2023-04-13 14:02 | Emergency (ER) | payer MEDICAID, SELFPAY ==
[2023-04-13 14:07] VITALS: BP 131/85; PULSE 82; RESP 18; TEMP 37.1; O2SAT 100
[2023-04-13] MEDS: Tetracaine 0.5% 4 ML BTL (15:20)
[2023-04-13] MEDS: Fluorescein STRIPS 100/BOX 1 MG (15:20)
[2023-04-13] MEDS: LORazepam 0.5 MG TAB PO (15:31)
--- NOTE | 2023-04-13 15:37 | W.ED.GENAD ---
HPI General Stated Complaint: EyeProblem MARTA: 4 Date/Time Provider Initiated Documentation: 04/13/23 14:52. HPI Narrative: 27-year-old female presents after having Hibiclens accidentally splashed in her right eye, patient does wear contacts, removed her contact lenses, irrigated her eyes extensively for greater than 15 minutes per recommendation of poison control, presents here with right eye irritation. Related Data Home Medications Medication Instructions Recorded Confirmed cholecalciferol (vitamin D3) 250 250 mcg PO DAILY #90 caps 05/12/22 04/13/23 mcg (10,000 unit) capsule levothyroxine 25 mcg tablet 25 mcg PO DAILY 07/27/22 04/13/23 ofloxacin 0.3 % eye drops See Rx Instructions ophthalmic 04/13/23 (eye) .COMPLEX #5 mL Previous Rx's Medication Instructions Recorded cholecalciferol (vitamin D3) 250 250 mcg PO DAILY #90 caps 05/12/22 mcg (10,000 unit) capsule ofloxacin 0.3 % eye drops See Rx Instructions ophthalmic 04/13/23 (eye) .COMPLEX #5 mL Allergies Allergy/AdvReac Type Severity Reaction Status Date / Time No Known Allergies Allergy Unverified 04/13/23 15:14 Review of Systems Narrative: Review of Systems Constitutional: negative Eyes: Eye irritation ENT: negative Cardiovascular: negative Respiratory: negative Gastrointestinal: negative : negative Musculoskeletal: negative Skin: negative Neurologic: negative Psych: negative PFSH All Active Problems (Updated 04/13/23 @ 15:41 by Cirilo Azevedo MD) Irritation of eye (Acute) Chemical exposure (Acute) Vitamin D deficiency (Acute) Iron deficiency anemia (Acute 11/15/13) 07/2021, HCT-34 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 Globus sensation No significant past medical history Palpitations 07/2021-normal Holter. Stopped in 2021 Panic attack (08/23/13) Does not have any more. PTSD (post-traumatic stress disorder) Surgical History No significant past surgical history [place] teeth extracted 06/2012 Family History Mother Thyroid disorder Social History Smoking/Tobacco Use Status: Former Tobacco Use tobacco type: cigarettes Quit Date: 04/11/14 Tobacco: How many years used: 8 Second Hand Exposure: Yes Smoking risk assessment performed?: Yes Alcohol Intake: never Drug use: Occasionally Substance use type: marijuana Household members: significant other and children Number of Children: 2 Frequency: 5-6 times per week Seatbelt use: always Do you feel safe at home: Yes Do you feel safe in your relationship?: Yes Exam Narrative Exam Narrative: Physical Examination General: alert, awake, cooperative, resting comfortably, no acute distress HEENT: normocephalic, atraumatic; PERRL, EOM intact, conjunctiva normal OD 20/50, OS 20/100; mild fluorescein uptake inferior lateral right sclera; pH 7 OD; no nasal discharge; moist mucous membranes, oral and pharyngeal mucosa normal, tolerating secretions Neck: supple, trachea midline; full ROM Chest: normal to inspection Respiratory: normal respiratory effort, speaking in full sentences Skin: no lesions, rashes or trauma appreciated Neuro: AAOx3, normal speech, moving all extremities Course Vital Signs Vital signs: Vital Signs Temperature 37.1 C 04/13/23 14:07 Pulse 82 04/13/23 14:07 Respiratory Rate 18 04/13/23 14:07 Blood Pressure 131/85 04/13/23 14:07 Pulse Oximetry 100 04/13/23 14:07 Temperature 37.1 C 04/13/23 14:07 Temperature Source Temporal Artery Scan 04/13/23 14:07 Pulse 82 04/13/23 14:07 Respiratory Rate 18 04/13/23 14:07 Respiratory Effort Normal, Non-Labored 04/13/23 15:15 Blood Pressure 131/85 04/13/23 14:07 Blood Pressure Position Supine 04/13/23 14:07 Pulse Oximetry 100 04/13/23 14:07 Oxygen Delivery Method Room Air 04/13/23 14:07 Oxygen Flow Rate 0 04/13/23 14:07 Pain Level 6 04/13/23 15:15 Medical Decision Making 27-year-old female contact lens wear, presents after Hibiclens splashed into her right eye, patient removed contact lenses, irrigated eyes extensively for greater than 15 minutes with tap water, mild persistent sensation of eye irritation right eye, without contact lenses in place OD 20/50, OS 20/100, her left eye is chronically worse than her right with regards to vision, minimal fluorescein uptake inferior lateral right sclera, pH 7, I irrigated extensively with normal saline here in department. Patient resting comfortably no acute distress. Likely superficial epithelial injury related to chemical exposure. No involvement of the central cornea. Patient will be started on ophthalmologic antibiotic drops. Given strict return precautions for any worsening symptoms. Was able to close the loop with poison control who agrees with management plan. Patient requesting low-dose benzodiazepine for severe anxiety at home. Given to go dose to be taken when she arrives home. Quality:SDOH Health Related Social Needs: No Data to Display Discharge Plan Disposition Patient Disposition: Home Condition: Improving Discharge Details Clinical Impression: Chemical exposure, Irritation of eye Primary Care Provider: Nargis Amezquita ED Provider: Cirilo Azevedo Home Meds and New Rx's Prescriptions: New ofloxacin 0.3 % drops See Rx Instructions .ROUTE .COMPLEX Qty: 5 0RF Rx Instructions: put 1-2 drps into affected eye(s) every 2-4 h x 2 days, then 1-2 drps 4 times/day days 3-7 No Action cholecalciferol (vitamin D3) 250 mcg (10,000 unit) capsule 250 mcg PO DAILY Qty: 90 3RF levothyroxine 25 mcg tablet 25 mcg PO DAILY Patient Comments: TAKE ONE TABLET BY MOUTH EVERY DAY Discharge Instructions Instructions: Chemical Eye [place] (ED) Additional Instructions: Please use medication as prescribed. Please return to the emergency department for any worsening symptoms.
== END 2023-04-13 15:50 | disposition home or self-care (01) ==
PROVIDERS: Emergency Provider Emergency Medicine; PCP Nurse Practitioner Family
DX: H57.89 Other specified disorders of eye and adnexa (principal); F41.9 Anxiety disorder, unspecified; Z77.098 Contact with and (suspected) exposure to other hazardous, chiefly nonmedicinal, chemicals
CPT/HCPCS: 99283

== ENCOUNTER 2023-04-14 00:07 | Emergency (ER) | payer MEDICAID, SELFPAY ==
[2023-04-14 00:13] VITALS: BP 146/82; PULSE 105; TEMP 37; O2SAT 100
[2023-04-14 00:20] VITALS: RESP 23
--- NOTE | 2023-04-14 00:25 | W.ED.GENAD ---
HPI General Stated Complaint: Anxiety Mode of arrival: ambulatory. MARTA: 3 Date/Time Provider Initiated Documentation: 04/14/23 00:09. Limitations to Documentation: no limitations. Information obtained by: patient. History of Present Illness anxiety/panic attack moderate hour(s) (2) constant No relieving factors improve symptom(s), No exacerbating factors reported denies fever/chills and nausea/vomiting none Related Data Home Medications Medication Instructions Recorded Confirmed cholecalciferol (vitamin D3) 250 250 mcg PO DAILY #90 caps 05/12/22 04/14/23 mcg (10,000 unit) capsule levothyroxine 25 mcg tablet 25 mcg PO DAILY 07/27/22 04/14/23 ofloxacin 0.3 % eye drops See Rx Instructions ophthalmic 04/13/23 04/14/23 (eye) .COMPLEX #5 mL Previous Rx's Medication Instructions Recorded cholecalciferol (vitamin D3) 250 250 mcg PO DAILY #90 caps 05/12/22 mcg (10,000 unit) capsule ofloxacin 0.3 % eye drops See Rx Instructions ophthalmic 04/13/23 (eye) .COMPLEX #5 mL Allergies Allergy/AdvReac Type Severity Reaction Status Date / Time No Known Allergies Allergy Unverified 04/13/23 15:14 Review of Systems All systems reviewed & are unremarkable except as noted in HPI and below Constitutional Constitutional: Denies chills and Denies fever(s) Eyes Eyes: Denies loss of vision Cardiovascular Cardiovascular: Denies chest pain and Denies dyspnea Respiratory Respiratory: Denies cough and Denies dyspnea Gastrointestinal Gastrointestinal: Denies abdominal pain, Denies nausea and Denies vomiting Musculoskeletal Musculoskeletal: Denies joint swelling Neurologic Neurologic: Denies loss of vision PFSH All Active Problems (Updated 04/14/23 @ 03:22 by Malcom Neely MD) Anxiety (Chronic) Irritation of eye (Acute) Chemical exposure (Acute) Vitamin D deficiency (Acute) Iron deficiency anemia (Acute 11/15/13) 07/2021, HCT-34 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 Globus sensation No significant past medical history Palpitations 07/2021-normal Holter. Stopped in 2021 Panic attack (08/23/13) Does not have any more. PTSD (post-traumatic stress disorder) Surgical History No significant past surgical history [place] teeth extracted 06/2012 Family History Mother Thyroid disorder Social History Smoking/Tobacco Use Status: Former Tobacco Use tobacco type: cigarettes Quit Date: 04/11/14 Tobacco: How many years used: 8 Second Hand Exposure: Yes Smoking risk assessment performed?: Yes Alcohol Intake: never Drug use: Occasionally Substance use type: marijuana Household members: significant other and children Housing: apartment Number of Children: 2 Frequency: 5-6 times per week Seatbelt use: always Do you feel safe at home: Yes Do you feel safe in your relationship?: Yes Exam Const General: anxious Orientation: alert HENMT Head: normal to inspection Ears: external ears normal General nose exam: external nose normal Mouth: moist mucous membranes Eyes General: appearance normal, both eyes and all related structures Neck Neck: normal visual inspection Resp Effort & Inspection: normal respiratory effort and able to speak in complete sentences Auscultation: clear to auscultation bilaterally Cardio Rate: regular rate Heart Sounds: no murmurs Skin General skin exam: no rashes or lesions noted Neuro General: patient alert and patient oriented x3 Extrem General: normal to inspection Psych Mental Status: mental status grossly normal Course Vital Signs Vital signs: Vital Signs Temperature 37 C 04/14/23 00:13 Pulse 105 H 04/14/23 00:13 Blood Pressure 146/82 H 04/14/23 00:13 Pulse Oximetry 100 04/14/23 00:13 Temperature 37 C 04/14/23 00:13 Temperature Source Temporal Artery Scan 04/14/23 00:13 Pulse 105 H 04/14/23 00:13 Respiratory Effort Normal, Non-Labored 04/14/23 00:17 Blood Pressure 146/82 H 04/14/23 00:13 Pulse Oximetry 100 04/14/23 00:13 Oxygen Delivery Method Room Air 04/14/23 00:13 Oxygen Flow Rate 0 04/14/23 00:13 Pain Level 3 04/14/23 00:13 Medical Decision Making 27 yo female who has a history of anxiety and ptsd who was seen on 04/13 after getting hiiclens in her eye and had it irrigated and d/c'd with topical antibiotics, states she started to get anxious after dealing with the injury and having to coordinate picking up her kid and has progressively worsened so came here. She is ambulatory and caox4 on arrival, tearful and seems very anxious. She has no eye pain now and states she feels jittery and anxious. No focal deficits, clear lungs, no murmurs. Seems consistent with a panic attack, will treat with ativan and reassess. pt now sleeping in no distress and awakens to voice, will continue to observe until more awake and eval prior to discharge pt awake and calm, no si/hi and no acute complaints feels improved, stable for d/c, advised to f/u with pcp and return precautions given Differential Diagnosis Differential Diagnosis: anxiety,panic attack Medical Records Medical records reviewed: Yes I reviewed the patient's medical records. ECG Data Attestation: I personally reviewed and interpreted this ECG (s) as follows: Prior ECG tracings: available for review Interpretation: sinus rhythm, rate of 95, pr 147, no stemi Quality:SDOH Health Related Social Needs: Health related social needs inadequate housing, transpo insecurity, personal safety Discharge Plan Disposition Patient Disposition: Home Condition: Stable Discharge Details Clinical Impression: Anxiety Primary Care Provider: Nargis Amezquita ED Provider: Malcom Neely Home Meds and New Rx's Prescriptions: Continued cholecalciferol (vitamin D3) 250 mcg (10,000 unit) capsule 250 mcg PO DAILY Qty: 90 3RF levothyroxine 25 mcg tablet 25 mcg PO DAILY Patient Comments: TAKE ONE TABLET BY MOUTH EVERY DAY ofloxacin 0.3 % drops See Rx Instructions .ROUTE .COMPLEX Qty: 5 0RF Rx Instructions: put 1-2 drps into affected eye(s) every 2-4 h x 2 days, then 1-2 drps 4 times/day days 3-7 Discharge Instructions Instructions: Anxiety (ED) Additional Instructions: follow up with your primary care provider within 1 week if you feel more ill, or have severe worsening symptoms return to the emergency department for a reevaluation
[2023-04-14] MEDS: LORazepam 1 MG TAB 2 MG PO (00:31)
--- NOTE | 2023-04-14 00:45 | RT.EKG_ITS ---
APPROVED REPORT Exam: Resting ECG Reason for Exam: palpitations Patient Location: E HR:95 bpm ECG Measurements Heart Rate 95 AXIS WI 147 P 44 QRSd 90 QRS 47 QT 342 T 24 QTc 431 Conclusion Sinus rhythm...normal P axis, V-rate 60- 99
[2023-04-14 05:08] VITALS: BP 122/78; PULSE 89; RESP 19; TEMP 36.8; O2SAT 98
--- NOTE | 2023-04-14 15:08 | NUR.NOTE ---
Accessed Pt chart to talk with Poison Control. They were told by Pt that she was coming back to the ER for treatment and they wanted to make sure she made it and inquired about discharge instructions.
== END 2023-04-14 05:10 | disposition home or self-care (01) ==
PROVIDERS: Emergency Provider Emergency Medicine; PCP Nurse Practitioner Family
DX: F41.9 Anxiety disorder, unspecified (principal); H57.89 Other specified disorders of eye and adnexa; Z77.098 Contact with and (suspected) exposure to other hazardous, chiefly nonmedicinal, chemicals
CPT/HCPCS: 93005; 99282; 93010; 99283

== ENCOUNTER 2023-05-19 15:19 | Outpatient (CLI) | payer MEDICAID, SELFPAY ==
[2023-05-19 15:33] LABS: TSH 0.87 uIU/mL (0.36-3.74)
[2023-05-19 16:34] LABS: Vitamin D 25 Total 29.6 ng/mL (30-100)
== END 2023-05-19 15:20 | disposition home or self-care (01) ==
LOC: LBO 15:19
PROVIDERS: PCP Nurse Practitioner Family; Visit Provider Internal Medicine Endocrinology, Diabetes & Metabolism
DX: E06.3 Autoimmune thyroiditis (principal); E55.9 Vitamin D deficiency, unspecified
CPT/HCPCS: 36415; 82306; 84443

== ENCOUNTER → 2023-07-12 15:17 | Outpatient (CLI) | payer MEDICAID, SELFPAY ==
--- NOTE | 2023-07-12 14:00 | DI.RAD_ITS ---
Exam(s) XR FOOT LT COMPLETE EXAM: XR FOOT LT COMPLETE CLINICAL HISTORY: S99.922A unspefieid injury left foot, injury 3rd digit and metatarsal. TECHNIQUE: 2D digital imaging was performed. COMPARISON: No exams were available for comparison FINDINGS: 3 views There is no evidence of acute fracture or diastasis of the Alem farida joint. Bone density normal. No significant osseous lesions nor erosions. No radiopaque foreign body. IMPRESSION: No acute osseous findings. DATA REPOSITORY: RADIATION DOSE DELIVERED:
== END ==
PROVIDERS: PCP Nurse Practitioner Family; Visit Provider Physician Assistant
DX: M79.672 Pain in left foot; S99.822A Other specified injuries of left foot, initial encounter; M77.42 Metatarsalgia, left foot
CPT/HCPCS: 73630

== ENCOUNTER 2023-07-25 06:01 | Outpatient (CLI) | payer MEDICAID, SELFPAY ==
[2023-07-25 10:34] LABS: TSH (W/Ref FT4) 1.36 uIU/mL (0.36-3.74)
[2023-07-25 10:48] LABS: Vitamin D 25 Total 31.7 ng/mL (30-100)
== END 2023-07-25 06:02 | disposition home or self-care (01) ==
LOC: LBO 06:01
PROVIDERS: PCP Nurse Practitioner Family; Visit Provider Internal Medicine Endocrinology, Diabetes & Metabolism
DX: E06.3 Autoimmune thyroiditis (principal); E55.9 Vitamin D deficiency, unspecified
CPT/HCPCS: 36415; 82306; 84443

== ENCOUNTER 2023-08-19 03:51 | Observation (INO) | payer MEDICAID, SELFPAY ==
[2023-08-19] VITALS (21 sets, daily range): BP systolic 95–168; BP diastolic 55–107; PULSE 71–117; RESP 15–22; TEMP 36.1–37.6; O2SAT 95–100; BMI 35.3
--- NOTE | 2023-08-19 04:13 | W.ED.GENAD ---
Discharge Plan Discharge Details Chief Complaint: Abd Prob Primary Care Provider: Nargis Amezquita ED Provider: Karthikeyan Scott Home Meds and New Rx's Prescriptions: No Action cholecalciferol (vitamin D3) 250 mcg (10,000 unit) capsule 250 mcg PO DAILY Qty: 90 3RF albuterol sulfate 90 mcg/actuation HFA aerosol inhaler 2 puff inhalation Q6H PRN triamcinolone acetonide 55 mcg aerosol,spray 2 spray intranasal DAILY Patient Comments: INSTILL 2 SPRAYS INTO EACH NOSTRIL ONCE DAILY HPI General Date/Time Provider Initiated Documentation: 08/19/23 03:53. HPI Narrative: This is a 28-year-old female with no significant past medical history except for Vimal's thyroiditis, previous iron deficiency anemia, who presents today for evaluation of left-sided abdominal and pelvic pain. Patient states that symptoms been present for the last 1 to 2 months. Patient has had an IUD since the fall of last year, it has been functioning well and she had been having regular periods, about 2 months ago she noticed an irregularity that developed in her period and since then she has had mild pain in her pelvis, as well as mild achiness on the left lower and mid abdomen. It is worse with movement and laying on the left-hand side. It appears fairly consistent, and is described as achy like there is something of size or pressure in that area. She denies any vaginal discharge. She does have a history of chlamydia years ago, but none recently. She is still with the same partner over the last few years. She was tested a year ago with negative testing. She has noted a 75 pound weight gain in the past year which is atypical for her. She denies any vomiting. She did have a few episodes of loose stool yesterday. No severe urinary discomfort however she has had occasional urinary frequency. No other complaints at this time. Intermittent right-sided abdominal pain. No other modifying factors. Although the pain had been relatively constant for the last few months she has noticed a significant worsening over the last 48 hours she describes episodes that seem to come and go for severity. Related Data Home Medications Medication Instructions Recorded Confirmed cholecalciferol (vitamin D3) 250 250 mcg PO DAILY #90 caps 05/12/22 08/19/23 mcg (10,000 unit) capsule albuterol sulfate 90 mcg/actuation 2 puff inhalation Q6H PRN 05/17/23 08/19/23 aerosol inhaler triamcinolone acetonide 55 mcg 2 spray intranasal DAILY 05/17/23 08/19/23 nasal spray aerosol Previous Rx's Medication Instructions Recorded cholecalciferol (vitamin D3) 250 250 mcg PO DAILY #90 caps 05/12/22 mcg (10,000 unit) capsule Allergies Allergy/AdvReac Type Severity Reaction Status Date / Time corn Allergy Severe Wheezing Verified 08/19/23 04:08 birch Allergy Severe Wheezing Uncoded 08/19/23 04:08 General Stated Complaint: Abd Prob MARTA: 3 Review of Systems All systems reviewed & are unremarkable except as noted in HPI and below Exam Narrative Exam Narrative: 1.Const: Well-nourished, Well-developed, appearing stated age 2.Eyes: PERRL, no conjunctival injection, and symmetrical lids. 3.ENT: Atraumatic external nose and ears. Moist MM. Neck: Symmetric, trachea midline, No thyromegaly. 4.CVS: +S1/S2, No murmurs or gallops. Peripheral pulses 2+ and equal in all extremities. Brisk capillary refill in all extremities. 5.RESP: Unlabored respiratory effort. Clear to auscultation bilaterally. No wheezes rales or rhonchi 6.GI: Mild pelvic achiness in the mid and left lower pelvic regions. Minimal right-sided pelvic achiness. No right lower quadrant abdominal tenderness. No pain to McBurney's point. Mild left-sided achiness on deep palpation. 7.MSK: Normocephalic/Atraumatic, Extremities w/o deformity or ttp No cyanosis or clubbing, Normal movement of all extremities 8.Skin: Warm, Dry. No rashes or lesions. 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 Sensation grossly intact, no focal neurologic deficits. 10.Psych: (AAO) x3. Appropriate mood and affect Course Vital Signs Vital signs: Vital Signs Temperature 36.7 C 08/19/23 03:53 Pulse 89 08/19/23 03:53 Respiratory Rate 16 08/19/23 03:53 Blood Pressure 148/107 H 08/19/23 03:53 Pulse Oximetry 100 08/19/23 03:53 Temperature 36.7 C 08/19/23 03:53 Pulse 89 08/19/23 03:53 Respiratory Rate 16 08/19/23 03:53 Respiratory Effort Normal 08/19/23 04:05 Blood Pressure 148/107 H 08/19/23 03:53 Pulse Oximetry 100 08/19/23 03:53 Pain Level 4 08/19/23 03:53 Medical Decision Making This is a 28-year-old female with no significant past medical history except for Vimal's thyroiditis, previous iron deficiency anemia, who presents today for evaluation of left-sided abdominal and pelvic pain. Patient states that symptoms been present for the last 1 to 2 months. Patient has had an IUD since the fall of last year, it has been functioning well and she had been having regular periods, about 2 months ago she noticed an irregularity that developed in her period and since then she has had mild pain in her pelvis, as well as mild achiness on the left lower and mid abdomen. It is worse with movement and laying on the left-hand side. It appears fairly consistent, and is described as achy like there is something of size or pressure in that area. She denies any vaginal discharge. She does have a history of chlamydia years ago, but none recently. She is still with the same partner over the last few years. She was tested a year ago with negative testing. She has noted a 75 pound weight gain in the past year which is atypical for her. She denies any vomiting. She did have a few episodes of loose stool yesterday. No severe urinary discomfort however she has had occasional urinary frequency. No other complaints at this time. Intermittent right-sided abdominal pain. No other modifying factors. Although the pain had been relatively constant for the last few months she has noticed a significant worsening over the last 48 hours she describes episodes that seem to come and go for severity. Physical exam demonstrates mild achiness on the left mid and lower regions as well as the right lower pelvic region. No pain to McBurney's point though, negative Owusu sign. With the patient's change in her menstrual cycles, with her 75 pound weight gain in the past year, PCOS, ovarian cyst, certainly on the differential. Symptoms appear inconsistent with ovarian torsion at this time clinically. Endometriosis is of the differential but less likely. STD is of concern but low likelihood. Symptoms appear inconsistent with appendicitis. Diverticulitis, kidney stone or urinary infection are of concern. We will get a UA, get basic blood work. She did take Tylenol before arrival, and we will give Toradol IV. We will reassess after labs and then determine next imaging need. No evidence of an acute surgical abdomen at this time necessitating emergent CT imaging. We will perform vaginal exam as well. 4:44 AM Vaginal exam was performed with female nurse Giana at bedside. Small amount of discharge was noted around the cervix. No evidence of erythema or lesions on the cervix. Mild to moderate cervical motion tenderness. Cord was seen in the cervix from the IUD. No other abnormalities blood or evidence of pathology. Repeat abdominal exam at that time does not show an acute surgical abdomen. 6:02 AM Patient was reassessed, pain has notably escalated, patient is tearful. She describes the pain as severe and aching in her lower abdomen/pelvic region. She states that it feels like something is twisting. Repeat exam at this time demonstrates notable increase tenderness. CT scan was ordered, pending read. There does appear to be a large ovarian cyst which is on the right. With her change in symptomatology torsion certainly is on the differential now. She certainly did not demonstrate evidence of it clinically before however this changes concerning. We will reach out to OB for further discussion. 7:07 AM Patient has been seen and evaluated by obstetrics cash application representative Dr. Banks. She would like to take the patient for definitive surgical management. Patient will be sent to the OR for further surgical management. I have extensively reviewed the treatment plan with the patient. I have addressed all patient concerns at this time. I have also discussed the plan with the admitting physician and they agree with the current assessment and plan and have agreed to assume responsibility for the patient. All parties demonstrate verbal understanding and agreement with our assessment and plan at this time. The documentation in this chart was dictated using [employer] dictation software. Please excuse any dictation errors. FINDINGS: Liver: Normal. No mass. Gallbladder and bile ducts: Normal. No calcified stones. No ductal dilation. Pancreas: Normal. No ductal dilation. Spleen: Normal. No splenomegaly. Adrenal glands: Normal. No mass. Kidneys and ureters: Normal. No hydronephrosis. Stomach and bowel: Unremarkable. No obstruction. No mucosal thickening. Appendix: Nonvisualized appendix. No evidence of appendicitis. Intraperitoneal space: Trace fluid in the pelvis. No free air. Vasculature: Unremarkable. No abdominal aortic aneurysm. Lymph nodes: Unremarkable. No enlarged lymph nodes. Urinary bladder: Unremarkable as visualized. Reproductive: Septated right adnexal cyst measuring 6.8 x 4.2 cm. Low-lying intrauterine device. Bones/joints: No acute fracture. Soft tissues: Unremarkable. IMPRESSION: Septated cystic mass of the right adnexa measuring 6.8 cm and a low-lying IUD. Follow-up ultrasound recommended. Thank you for allowing us to participate in the care of your patient. 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 Palpitations 07/2021-normal Holter. Stopped in 2021 Depression Not active symptoms. PTSD (post-traumatic stress disorder) Globus sensation No significant past medical history Surgical History [place] teeth extracted 06/2012 No significant past surgical history Family History Mother Thyroid disorder Social History Smoking/Tobacco Use Status: Former Tobacco Use tobacco type: cigarettes Quit Date: 04/11/14 Tobacco: How many years used: 8 Second Hand Exposure: Yes Smoking risk assessment performed?: Yes Alcohol Intake: never Drug use: Occasionally Substance use type: marijuana Household members: significant other and children Housing: apartment Number of Children: 2 Frequency: 5-6 times per week Seatbelt use: always Do you feel safe at home: Yes Do you feel safe in your relationship?: Yes
[2023-08-19 04:20] LABS: Abs Immature Grans 0.02 10^3/uL (0.0-0.06); Absolute Basophil Count 0.03 10^3/uL (0.0-0.2); Absolute Eosinophil Count 0.27 10^3/uL (0.0-0.7); Absolute Monocyte Count 0.63 10^3/uL (0.1-0.8); Absolute Neutrophil Count 5.54 10^3/uL (1.2-6.7); Basophils % 0.3 %; Eosinophils % 3.1 %; HCT 37.4 % (36.0-46.0); HGB 12.6 g/dL (11.2-15.7); Immature Grans % 0.2 %; Lymphocytes % 24.4 %; MCH 27.9 pg (27.0-33.0); MCHC 33.7 % (32.0-36.0); MCV 83 fL (80-95); MPV 9.4 fL (8.0-11.0); Monocytes % 7.3 %; Neutrophils % 64.7 %; Platelet Count 343 10^3/uL (130-400); RBC 4.52 10^6/uL (3.93-5.22); RDW 13.2 % (11.7-14.6); RDW-SD 40.2 fL; WBC 8.59 10^3/uL (4.4-10.8)
[2023-08-19] MEDS: Ketorolac 15 MG/ML VIAL IVP (04:21)
[2023-08-19] MEDS: Normal Saline 500 ML IV (04:21)
[2023-08-19 04:35] LABS: ALT 17 U/L (14-59); AST 18 U/L (15-37); Alkaline Phosphatase 78 U/L (46-116); Anion Gap 9.8 mmol/L (3-11); BUN 14 mg/dL (7-18); Bilirubin, Total 0.5 mg/dL (0.2-1.0); CO2 26.2 mmol/L (21.0-32.0); CREATININE 0.8 mg/dL (0.55-1.02); Calcium 8.7 mg/dL (8.5-10.1); Chloride 104 mmol/L (98-107); Estimated GFR 102.22 (mL/min/1.73m2); Glucose 93 mg/dL (74-106); Potassium 3.5 mmol/L (3.5-5.1); Sodium 140 mmol/L (136-145); Total Protein 8.1 g/dL (6.4-8.2)
[2023-08-19 05:00] LABS: Bilirubin Negative (Negative); Blood Negative (Negative); Clarity Clear (Clear); Glucose Negative (Negative); Ketones Negative (Negative); Leukocyte Esterase Negative (Negative); Nitrite Negative (Negative); Specific Gravity >= 1.030 (1.005-1.025); Urobilinogen 0.2 mg/dL (Up to 0.2); pH 5.5 (5-8)
--- NOTE | 2023-08-19 05:00 | DI.CT_ITS ---
Exam(s) CT ABDOMEN PELVIS W EXAM: CT ABDOMEN PELVIS W CLINICAL HISTORY: left lower abdominal/ pelvic pain. TECHNIQUE: Imaging Protocol: Axial computed tomography images with coronal and sagittal reformatted images were created and reviewed CONTRAST MATERIAL: Intravenous: Omnipaque 350 Contrast volume:100 ml Oral: yes / no COMPARISON: CT ABD PELVIS WITH CONTRAST from 04/30/2017 FINDINGS: ABDOMEN and PELVIS: Lung Bases: No acute findings. Liver: Normal density. No suspicious mass. Gallbladder and biliary tract: No radiodense calculus. No biliary dilation. Pancreas: Normal density. No abnormal calcifications or inflammatory process. No evidence of mass. Spleen: Normal. Kidneys: Normal size, contour and axis. No radiodense stones. No obstructive uropathy. No suspicious masses seen. Adrenal glands: No masses seen. Vasculature: Abdominal aorta non-dilated. Soft tissues: Unremarkable. Bladder: No gross wall thickening. No calculi.No focal mass. Bowel: No obstruction. No bowel wall thickening. Appendix normal. Peritoneal cavity: No ascites. No focal collection. No mesenteric inflammatory response. Bones: Unremarkable for age. Reproductive organs: 2 adjacent cysts versus septated cyst of the right ovary measuring roughly 5.5 c m in diameter.. No solid components visible. IUD appears to be positioned low in the lower uterine segment and cervix. Lymph nodes: No pathologically enlarged lymph nodes. IMPRESSION:: 5.5 centimeter septated cyst of the right ovary versus 2 adjacent cysts. IUD is positioned low in the uterus. Ultrasound recommended for further evaluation . RADIATION DOSE DELIVERED: 1,113.21mGy.cm Total DLP DATA REPOSITORY: All CT scans at this facility are submitted to the National Radiology Data Registry (NRDR) Dose Index Registry (DIR) with the [employer] (ACR). RADIATION OPTIMIZATION: All CT scans at this facility use at least one of these dose optimization te chniques: automated exposure control; mA and/or kV adjustment per patient size (includes targeted exa ms where dose is matched to clinical indication); or iterative reconstruction.
[2023-08-19] MEDS: Normal Saline - Diluent 50 ML VIAL IJ (05:42)
[2023-08-19] MEDS: Omnipaque 350 MG/ML 100 ML BTL IJ (05:42)
--- NOTE | 2023-08-19 06:08 | DI.VRAD_ITS ---
PROCEDURE INFORMATION: Exam: CT Abdomen And Pelvis With Contrast Exam date and time: 08/19/2023 5:33 AM Age: 28 years old Clinical indication: Abdominal pain; Other: Left lower abdominal/ pelvic pain TECHNIQUE: Imaging protocol: Computed tomography of the abdomen and pelvis with contrast. Contrast material: OMNI 350; Contrast volume: 100 ml; Contrast route: INTRAVENOUS (IV); COMPARISON: CT ABD PELVIS WITH CONTRAST 30/04/2017 04:07 FINDINGS: Liver: Normal. No mass. Gallbladder and bile ducts: Normal. No calcified stones. No ductal dilation. Pancreas: Normal. No ductal dilation. Spleen: Normal. No splenomegaly. Adrenal glands: Normal. No mass. Kidneys and ureters: Normal. No hydronephrosis. Stomach and bowel: Unremarkable. No obstruction. No mucosal thickening. Appendix: Nonvisualized appendix. No evidence of appendicitis. Intraperitoneal space: Trace fluid in the pelvis. No free air. Vasculature: Unremarkable. No abdominal aortic aneurysm. Lymph nodes: Unremarkable. No enlarged lymph nodes. Urinary bladder: Unremarkable as visualized. Reproductive: Septated right adnexal cyst measuring 6.8 x 4.2 cm. Low-lying intrauterine device. Bones/joints: No acute fracture. Soft tissues: Unremarkable. IMPRESSION: Septated cystic mass of the right adnexa measuring 6.8 cm and a low-lying IUD. Follow-up ultrasound recommended. Dictated and Authenticated by: Manohar Conway MD. Ordering:PER Napier MD
[2023-08-19] MEDS: ACETAMINOPHEN 1,000 MG/100 ML BTL 400 MG IVPB (06:17)
--- NOTE | 2023-08-19 07:10 | W.PM.HP.N ---
Date of service: 08/19/23 Time of Service: 07:10 Assessment and Plan Assessment and plan (1) IUD (intrauterine device) in place: Status: Acute (2) Ovarian cyst: Status: Acute Qualifiers: Laterality: right Qualified Code(s): N83.201 - Unspecified ovarian cyst, right side (3) Pelvic pain: Status: Acute Assessment and plan: Patient has a 6.8 septated ovarian cyst with possible torsion. I recommended a laparoscopic right ovarian cystectomy possible oophorectomy. Informed consent was obtained her questions were answered I did explain the risks of the procedure including the risk of damage to surrounding structures including bowel bladder ureter and blood vessels upon entry into the abdominal cavity. The risk of bleeding from the ovary requiring a larger incision and possible transfusion was discussed and the risk of a right or left ovarian oophorectomy was discussed. OR has been notified plan is to proceed with the emergent laparoscopic right ovarian cystectomy. History of Present Illness History of Present Illness Chief Complaint: worsening abdominal pain Consults Consult date: 08/19/23 Requesting physician: Karthikeyan Scott Narrative: Pt is a 28yo female who presented to the [facility] ED earlier this morning with complaint of acute onset of severe L>R sided pelvic pain. Pt has a IUD in place for contraception. Onset of pelvic discomfort was approximately one month ago. However discomfort intensified late last month and became worse when in ED in the client resolution specialist. CT of abd/pelvis showed septated right adnexal cyst measuring 6.8 x 4.2 cm. Low-lying intrauterine device. Nl appearing L adnexa. Review of Systems All systems reviewed & are unremarkable except as noted in HPI and below PFSH All Active Problems (Updated 08/19/23 @ 07:22 by Josey Banks MD) Pelvic pain (Acute) IUD (intrauterine device) in place (Acute) Ovarian cyst (Acute) Anxiety (Chronic) Vitamin D deficiency (Acute) Iron deficiency anemia (Acute 11/15/13) 07/2021, HCT-34 Vimal's thyroiditis (Acute) 01/2021- enlarged thyroid, positive AB,euthyroid Medical History (Updated 08/19/23 @ 07:22 by Josey Banks MD) Panic attack (08/23/13) Does not have any more. Palpitations 07/2021-normal Holter. Stopped in 2021 Depression Not active symptoms. PTSD (post-traumatic stress disorder) Globus sensation No significant past medical history Surgical History [place] teeth extracted 06/2012 No significant past surgical history Family History Mother Thyroid disorder Social History Smoking/Tobacco Use Status: Former Tobacco Use tobacco type: cigarettes Quit Date: 04/11/14 Tobacco: How many years used: 8 Second Hand Exposure: Yes Smoking risk assessment performed?: Yes Alcohol Intake: never Drug use: Occasionally Substance use type: marijuana Household members: significant other and children Housing: apartment Number of Children: 2 Frequency: 5-6 times per week Seatbelt use: always Do you feel safe at home: Yes Do you feel safe in your relationship?: Yes Meds Allergies and Home Medications Allergies Allergy/AdvReac Type Severity Reaction Status Date / Time corn Allergy Severe Wheezing Verified 08/19/23 04:08 birch Allergy Severe Wheezing Uncoded 08/19/23 04:08 Home Medications Medication Instructions Recorded Confirmed Type cholecalciferol (vitamin D3) 250 250 mcg PO DAILY #90 caps 05/12/22 08/19/23 Rx mcg (10,000 unit) capsule albuterol sulfate 90 mcg/actuation 2 puff inhalation Q6H PRN 05/17/23 08/19/23 History aerosol inhaler triamcinolone acetonide 55 mcg 2 spray intranasal DAILY 05/17/23 08/19/23 History nasal spray aerosol Exam Const General: in distress (Sitting in Semi-Callejas's position on gurney tearful) Nutritional Appearance: well nourished Orientation: alert, awake and oriented x3 Neck Neck: normal visual inspection Chest Chest: deferred Resp Effort & Inspection: normal respiratory effort Auscultation: clear to auscultation bilaterally Cardio Rate: regular rate Rhythm: regular rhythm GI Inspection: normal to inspection Palpation: soft, no hepatosplenomegaly, no masses and tender Rectal Exam - female: deferred General: deferred (Pelvic exam previously performed by Dr. Scott) Back/Spine/Pelvis Back: no CVA tenderness Skin General skin exam: no rashes or lesions noted Extrem General: normal to inspection Psych Appearance: grossly normal Mental Status: other (Tearful anxious regarding the pain) Mood: anxious mood (In pain) and other (Tearful anxious regarding the pain) Affect: sad Attitude: cooperative Thought Process: normal Thought Content: normal Results Labs 08/19/23 04:14 08/19/23 04:14 Labs: Laboratory Results - last 24 hr 08/19/23 08/19/23 04:14 04:45 WBC 8.59 RBC 4.52 Hgb 12.6 Hct 37.4 MCV 83 MCH 27.9 MCHC 33.7 RDW 13.2 Plt Count 343 MPV 9.4 Immature Gran % 0.2 Neutrophils % 64.7 Lymphocytes % 24.4 Monocytes % 7.3 Eosinophils % 3.1 Basophils % 0.3 Nucleated RBC % 0.0 Absolute Neutrophils 5.54 Absolute Lymphocytes 2.10 Absolute Monocytes 0.63 Absolute Eosinophils 0.27 Absolute Basophils 0.03 Sodium 140 Potassium 3.5 Chloride 104 Carbon Dioxide 26.2 Anion Gap 9.8 BUN 14 Creatinine 0.8 Est GFR (CKD-EPI 2020) 102.22 Glucose 93 Calcium 8.7 Total Bilirubin 0.5 AST 18 ALT 17 Alkaline Phosphatase 78 Total Protein 8.1 Albumin 4.0 Urine Color Yellow Urine Clarity Clear Urine pH 5.5 Ur Specific [place] >= 1.030 H Urine Protein Negative Urine Ketones Negative Urine Blood Negative Urine Nitrite Negative Urine Bilirubin Negative Urine Urobilinogen 0.2 Ur Leukocyte Esterase Negative Urine Glucose Negative Last Vital Signs Temp 98.1 F 08/19/23 03:53 Pulse 72 08/19/23 06:18 Resp 16 08/19/23 06:18 BP 152/72 H 08/19/23 06:18 Pulse Ox 99 08/19/23 06:18 Time Spent Time spent with Patient: <40 minutes Time was spent: preparing to see the patient(eg.review tests), obtaining and/or reviewing separately otained hiistory, referring, communicating with other health specialist wound care and counseling the patient
[2023-08-19] MEDS: MORPHine 4 MG/ML SYR IVP (07:40)
--- NOTE | 2023-08-19 07:57 | ANES.PREOP_ITS ---
General Info Date of Service Date Performed: 08/19/23 Height: 5 ft 4 in Weight: 93.44 kg Body Mass Index (BMI): 35.3 Surgical Procedure: Operation Date: 08/19/23 07:40 Proposed Procedure Side Surgeon p Ovarian Cystectomy Laparoscopic, Possible Oophorectomy Josey Banks MD Meds Allergies and Home Medications Allergies Allergy/AdvReac Type Severity Reaction Status Date / Time corn Allergy Severe Wheezing Verified 08/19/23 04:08 birch Allergy Severe Wheezing Uncoded 08/19/23 04:08 Home Medication Medication Instructions Recorded cholecalciferol (vitamin D3) 250 250 mcg PO DAILY #90 caps 05/12/22 mcg (10,000 unit) capsule albuterol sulfate 90 mcg/actuation 2 puff inhalation Q6H PRN 05/17/23 aerosol inhaler triamcinolone acetonide 55 mcg 2 spray intranasal DAILY 05/17/23 nasal spray aerosol Current Visit Medications: Current Medications Generic Name Dose Route Start Last Admin Trade Name Freq PRN Reason Stop Dose Admin Albuterol Sulfate 2 puff 08/19/23 07:45 Albuterol Hfa 8 Gm 60 Puff Inh IH 09/18/23 07:44 Q6H PRN PRN Device 1 each 08/19/23 08:00 Inhaler, Assist Device MC DIRECTED GEORGINA Iohexol 100 ml 08/19/23 05:45 08/19/23 05:42 Omnipaque 350 Mg/Ml 100 Ml Btl IJ 09/18/23 23:59 100 ml DIRECTED GEORGINA Administration Non-Formulary Medication 250 mcg 08/19/23 08:30 Cholecalciferol (Vitamin D3) PO DAILY GEORGINA Non-Formulary Medication 2 spray 08/19/23 08:30 Triamcinolone Acetonide BERNARD DAILY GEORGINA Sodium Chloride 50 ml 08/19/23 05:45 08/19/23 05:42 Normal Saline - Diluent 50 Ml Vial IJ 50 ml .FOR DI USE GEORGINA Administration PFSH Active Problems Active Problems: Problem Status Onset Code Pelvic pain R10.2 IUD (intrauterine device) in place Z97.5 Ovarian cyst N83.209 Anxiety F41.9 Vitamin D deficiency E55.9 Iron deficiency anemia 11/15/13 D50.9 Vimal's thyroiditis E06.3 Medical History Medical History Panic attack (08/23/13) Does not have any more. Palpitations 07/2021-normal Holter. Stopped in 2021 Depression Not active symptoms. PTSD (post-traumatic stress disorder) Globus sensation No significant past medical history Surgical History Surgical History [place] teeth extracted 06/2012 No significant past surgical history Tobacco Smoking/Tobacco Use Status: Former Tobacco Use Passive smoking exposure: Yes Second hand exposure: Yes Alcohol Alcohol Intake: never Substance Use Substance use: Occasionally Substance use type: marijuana Vital Signs and Lab Results Vital Signs Most Recent Vital Signs in EMR: Most Recent Vital Signs Temp Pulse Resp BP Pulse Ox 37.1 C 72 16 122/64 99 08/19/23 07:48 08/19/23 07:48 08/19/23 07:48 08/19/23 07:48 08/19/23 07:48 Point of Care Results Point of Care Results: POC- Test(urine) Negative 08/19/23 05:00 Lab Results 08/19/23 04:14 08/19/23 04:14 Blood Type / Crossmatch: 2 No Data to Display Complete Blood Count: 2 White Blood Count 8.59 10^3/uL (4.4-10.8) 08/19/23 04:14 Red Blood Count 4.52 10^6/uL (3.93-5.22) 08/19/23 04:14 Hemoglobin 12.6 g/dL (11.2-15.7) 08/19/23 04:14 Hematocrit 37.4 % (36.0-46.0) 08/19/23 04:14 Platelet Count 343 10^3/uL (130-400) 08/19/23 04:14 Complete Metabolic Panel: 2 Sodium 140 mmol/L (136-145) 08/19/23 04:14 Potassium 3.5 mmol/L (3.5-5.1) 08/19/23 04:14 Chloride 104 mmol/L (98-107) 08/19/23 04:14 Carbon Dioxide 26.2 mmol/L (21.0-32.0) 08/19/23 04:14 BUN 14 mg/dL (7-18) 08/19/23 04:14 Creatinine 0.8 mg/dL (0.55-1.02) 08/19/23 04:14 Est GFR (CKD-EPI 2020) 102.22 (mL/min/1.73m2) 08/19/23 04:14 Calcium 8.7 mg/dL (8.5-10.1) 08/19/23 04:14 Albumin 4.0 g/dL (3.4-5.0) 08/19/23 04:14 Glucose 93 mg/dL (74-106) 08/19/23 04:14 Liver Function Panel: 2 Alanine Aminotransferase (ALT/SGPT) 17 U/L (14-59) 08/19/23 04: 14 Aspartate Amino Transf (AST/SGOT) 18 U/L (15-37) 08/19/23 04:14 Coagulation Panel: 2 No Data to Display Cardiac Panel: 2 No Data to Display Arterial Blood Gas: 2 No Data to Display Venous Blood Gas: 2 No Data to Display Pancreas Panel: 2 No Data to Display Thyroid Panel: 2 Thyroid Stimulating Hormone (TSH) 1.36 uIU/mL (0.36-3.74) 07/24 08:41 Infectious Disease: 2 No Data to Display Blood Cultures: 2 No Data to Display Toxicology Panel: 2 No Data to Display Panel: 2 No Data to Display Anesthesia Assessment and Plan Anesthesia History Personal History: No History of General Anesthesia Family History: No Family History of Anesthesia Complications Exercise Tolerance Exercise Tolerance: Metabolic Equivalents>4 Pertinent Negatives Pertinent Negatives: No Symptoms of GERD Cardiac & Pulmonary Exam Cardiac Exam: Normal S1/S2 Heart Sounds Pulmonary Exam: Clear Bilateral Breath Sounds Implantable Cardiac Device Does patient have a Pacemaker or an ICD?: No Airway Exam Known Difficult Airway: No Mallampati Class: 2 Mouth Opening: Narrow (< 3cm) Thyromental Distance: Less than 3 cm Neck Range of Motion: Full ROM Neck Circumference: Normal Teeth Condition: Normal Dentition ASA Classification ASA Score: ASA 2 Emergency Case?: Yes NPO Status NPO Status: NPO Clears >2 hours, Solids >8 hours Status Status: Negative HCG Anesthesia Plan Resuscitation Status: Full Code Anesthesia Technique: General Anesthesia Airway Planned: Endotracheal Tube Monitors Used: Standard Monitors
[2023-08-19] MEDS: Lactated Ringers 1,000 ML 75 ML IV (07:59)
[2023-08-19] MEDS: Bupivacaine 0.25% Pres-Free 30 ML VIAL (08:30)
--- NOTE | 2023-08-19 09:15 | OVAR_PTH ---
PATIENT: Renetta Colindres LOC: [facility] [place]#:[id number] AGE/SX: 28/F ROOM: 216 RE08/19/[address]: Josey Banks : 1995 BED: A DIS: 08/20/2023 SPEC #: [id number] RECD: 08/19/23 12:42 STATUS: SYDNIE REQ #: [id number] DUNIA: 08/19/23 09:[address]: Josey Banks DEPT: Surgical Specimen RECD BY: Iwona Low ENTERED: 08/19/23 12:44 SP TYPE: HAJA LOCKHART DR: Nargis Amezquita, GAYLE Tissues: 1 - OVARY BIOPSY Procedures: GROSS AND MICRO LEVEL 4 Comments: [id number]
[2023-08-19] MEDS: fentaNYL 100 MCG/2 ML VIAL IVP ×2 (09:40→10:04)
[2023-08-19] MEDS: LORazepam 2 MG/ML VIAL 0.5 MG IVP (09:54)
--- NOTE | 2023-08-19 09:54 | W.PM.DSUDISC ---
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 She underwent a laparoscopic R ovarian cystectomy of a benign appearing serous filled cyst. Pt had two issues that made discharge from DSU difficult: She was reluctant to use narcotics for pain relief at home and NSAIDs were not effective in controlling her postop pain. Patient had no available transportation to bring her home. Decision was made to admit her to Director Medical Writing status for postop observation. She will receive narcotics and NSAIDs for postop analgesia and will plan discharge to home in am 08/20/23. Home Meds and New Rx's Prescriptions: No Action cholecalciferol (vitamin D3) 250 mcg (10,000 unit) capsule 250 mcg PO DAILY Qty: 90 3RF albuterol sulfate 90 mcg/actuation HFA aerosol inhaler 2 puff inhalation Q6H PRN triamcinolone acetonide 55 mcg aerosol,spray 2 spray intranasal DAILY Patient Comments: INSTILL 2 SPRAYS INTO EACH NOSTRIL ONCE DAILY Discharge Instructions Additional Instructions: You have skin glue covering your incisions. You may shower at anytime. I recommend that you do not return to work until you see me for a postop visit on Tuesday08/22/23. You will be given a time prior to your discharge home. You may take Ibuprofen 600mg ( 3 tablets of over the counter 200mg tablets) every 6 hours for pain. I recommend that you rest as much as possible over the next 3 days. Stand Alone Forms: DSU Post Director Medical Writing SurgeryW/Incision Activity:: Activity as Tolerated Shower/Bathe:: 24 hours Activity:: Activity as Tolerated Equipment/Supplies:: No Equipment Needed Diet:: As Tolerated DS: Diagnosis Discharge Diagnosis (1) Ovarian cyst: Status: Acute (2) Pelvic pain: Status: Acute Asessment and Plan: Pt had requested to remain hospitalized overnight initally secondary to concern about pain relief. She was reluctant to be discharged immediately from DSU because she was reluctant to take narcotics for pain relief but unsure if NSAIDs would be adequate. In discussion with the patient she reports not having a ride to transport her home. I recommended postop observation and additional pain medication overnight. She is agreeable to the plan. (3) Hx of ovarian cystectomy: Status: Acute Asessment and Plan: Pt had decompression of cyst and removal of cyst wall. She has a f/u appointment in [facility] to discuss path results and contraception. (4) Encounter for removal of intrauterine contraceptive device: Status: Acute Asessment and Plan: Mirena IUD was removed at request of patient while she was in PACU secondary to complaints of cervical pain and uterine cramping. Pt was counseled regarding need to refrain from intercourse or use barrier method.
--- NOTE | 2023-08-19 10:03 | W.PM.OP ---
Date of service: 08/19/23 Time of Service: 12:34 Operative Note Operative Note DATE OF PROCEDURE: 08/19/23 PRE-OP DIAGNOSIS: R ovarian cyst PROCEDURE: Laparoscopic R ovarian cystectomy SURGEON: Josey Banks CUSTOMER SERVICE MANAGER: Jeanne Monroy Refer to Anesthesia Record ESTIMATED BLOOD LOSS: 5 PATHOLOGY: other (ovarian cyst wall to pathology) COMPLICATIONS: None Patient was transported to: PACU Patient's condition: stable Indications: 28yo female who presented to the [facility] ED earlier this morning with complaint of acute onset of severe L>R sided pelvic pain. Pt has a IUD in place for contraception. Onset of pelvic discomfort was approximately one month ago. However discomfort intensified late last month and became worse when in ED in the customer professional. CT of abd/pelvis showed septated right adnexal cyst measuring 6.8 x 4.2 cm. Low-lying intrauterine device. Nl appearing L adnexa. Findings: Smooth-walled right ovarian cyst with clear fluid from withing the cyst. Normal L adnexa. Normal R fallopian tube. Nl pelvis and upper abdomen. Procedure Description: Patient was taken to the operating room where she was placed in the dorsal supine position and endotracheal anesthesia was administered.? She was then placed in the dorsolithotomy position in yellowfin stirrups and prepped in the usual sterile fashion.? SCDs were in place. A surgical timeout was performed.? A Hulka uterine manipulator was inserted into the cervix and left in place and a guzman catheter was inserted to gravity drainage. Attention was then turned to the abdominal portion of the case and the umbilical fold was infiltrated with 0.25% Marcaine and a 12 mm vertical skin incision was made in the umbilicus. Through this incision a Veres needle was inserted while connected to carbon dioxided as the distention medium. Intra-abdominal placement was confirmed by drop in the intra-abdominal pressure. Once a pneumoperitoneum was established a 12 mm Visiport trocar was introduced into the abdomen under direct visualization.? The patient was then placed in Trendelenburg position and approximately 6 cm diagonal to the right and left of the umbilical incision the skin was transilluminated and the subcutaneous tissue infiltrated with quarter percent Marcaine and then incised with a scalpel.? Under direct visualization two 5 mm ports were placed in the right and left lower quadrants respectively.? The abdomen was inspected with the above-noted findings. The right ovary was identified and the underside of the ovary was incised with a LigaSure electrocautery device. The capsule was penetrated and a copious amount of clear yellow tinged fluid evacuated. The capsule of the right ovary was incised and the cyst wall was grasped and removed in pieces. The majority of the cyst wall was extracted and the exposed ovarian bed was cauterized and was hemostatic at the completion of the procedure. The inner portion of the ovary was irrigated with sterile normal saline and any pelvic fluid aspirated. The abdomen was reinspected and the right ovarian cyst wall bed was noted to be hemostatic. Patient was repositioned in the dorsal supine position and both 5 mm ports were removed under direct visualization.? The pneumoperitoneum was deflated and the umbilical port was removed. The fascia of the umbilical port incision was reapproximated with 0-Vicryl suture and the skin of all incisions was reapproximated with subcuticular suture of 4-0 Monocryl. The trocar sites were covered with skin glue. Instruments were removed from the vagina and the Hulka uterine manipulator site was noted to be hemostatic. The guzman catheter was removed and the pt placed in the dorsal supine position, awakened and extubated. She was transported to recovery area in stable condition.
[2023-08-19] MEDS: HYDROmorphone 2 MG/ML SYR IVP (10:38)
[2023-08-19] MEDS: oxyCODONE 5 mg/Acetaminophen 325 mg TAB PO (12:48)
--- NOTE | 2023-08-19 13:12 | W.ANESPOSTOP ---
Postoperative Evaluation Date, Time and Location Date Performed: 08/19/23 Time Performed: 13:12 Patient Location: Day Surgery Unit Vital Signs Most Recent Imported Vital Signs: Most Recent Vital Signs Temp Pulse Resp BP Pulse Ox 36.7 C 88 18 113/60 99 08/19/23 11:29 08/19/23 11:29 08/19/23 11:29 08/19/23 11:29 08/19/23 11:29 Pain Score Most Recent Pain Score: Most Recent Pain Score Pain Level 0 08/19/23 11:29 Assessment Mental Status: Awake (Alert & Oriented to Patient Baseline) Airway and Respiratory Function: Patent airway with normal (patient baseline) respiratory exam Cardiovascular Function: Hemodynamically Stable Hydration Status: Adequately Hydrated Nausea & Vomiting: No Nausea or Vomiting Pain: Pt. Denies Any Pain Peripheral Nerve Block: Patient did not receive a nerve block Postoperative Comments:: Pt had a significant amount of dysphoria during wake up process in PACU. Oma Yee CRNA
[2023-08-19] MEDS: Ibuprofen 600 MG TAB PO (15:00)
[2023-08-19] MEDS: Acetaminophen 500 MG TAB PO (15:00)
[2023-08-19] MEDS: oxyCODONE 5 mg/Acetaminophen 325 mg TAB 2 TAB PO ×2 (16:25→20:28)
--- NOTE | 2023-08-19 17:59 | W.PM.HP.N ---
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 She underwent a laparoscopic R ovarian cystectomy of a benign appearing serous filled cyst. Pt had two issues that made discharge from DSU difficult: She was reluctant to use narcotics for pain relief at home and NSAIDs were not effective in controlling her postop pain. Patient had no available transportation to bring her home. Decision was made to admit her to Towboat Engineer status for postop observation. She will receive narcotics and NSAIDs for postop analgesia and will plan discharge to home in am 08/20/23. Review of Systems Narrative: Pt described 10/10 pain when in DSU prior to receiving Percocet for pain. Constitutional Constitutional: Reports system reviewed and no additional complaints, except as documented Gastrointestinal Gastrointestinal: Reports abdominal pain Genitourinary Genitourinary: Reports pelvic pain (Pt had IUD removed in PACU per her request.) Musculoskeletal Musculoskeletal: Reports system reviewed and no additional complaints, except as documented Neurologic Neurologic: Reports system reviewed and no additional complaints, except as documented Psychiatric Psychiatric: Reports anxiety (concerned about pain and ambivalent regarding taking narcotics) PFSH All Active Problems (Updated 08/19/23 @ 20:27 by Josey Banks MD) Post-op pain (Acute) Encounter for removal of intrauterine contraceptive device (Acute) Hx of ovarian cystectomy (Acute) Pelvic pain (Acute) Ovarian cyst (Acute) Anxiety (Chronic) Vitamin D deficiency (Acute) Iron deficiency anemia (Acute 11/15/13) 07/2021, HCT-34 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 Palpitations 07/2021-normal Holter. Stopped in 2021 Depression Not active symptoms. PTSD (post-traumatic stress disorder) Globus sensation No significant past medical history Surgical History [place] teeth extracted 06/2012 No significant past surgical history Family History Mother Thyroid disorder Social History Smoking/Tobacco Use Status: Former Tobacco Use tobacco type: cigarettes Quit Date: 04/11/14 Tobacco: How many years used: 8 Second Hand Exposure: Yes Smoking risk assessment performed?: Yes Alcohol Intake: never Drug use: Occasionally Substance use type: marijuana Household members: significant other and children Housing: house Number of Children: 2 Frequency: 5-6 times per week Seatbelt use: always Do you feel safe at home: Yes Do you feel safe in your relationship?: Yes History History 4 Para 2 Hx # Term Pregnancies 2 Multiple births Hx # Pregnancies Ectopic pregnancies AB induced Hx Number of Living Children 2 AB spontaneous 2 Meds Allergies and Home Medications Allergies Allergy/AdvReac Type Severity Reaction Status Date / Time corn Allergy Severe Wheezing Verified 08/19/23 04:08 birch Allergy Severe Wheezing Uncoded 08/19/23 04:08 Home Medications Medication Instructions Recorded Confirmed Type cholecalciferol (vitamin D3) 250 250 mcg PO DAILY #90 caps 05/12/22 08/19/23 Rx mcg (10,000 unit) capsule albuterol sulfate 90 mcg/actuation 2 puff inhalation Q6H PRN 05/17/23 08/19/23 History aerosol inhaler triamcinolone acetonide 55 mcg 2 spray intranasal DAILY 05/17/23 08/19/23 History nasal spray aerosol Exam Narrative Exam Narrative: Pain improved after receiving Percocet in PACU. Const General: no acute distress Nutritional Appearance: well nourished Orientation: alert, awake and oriented x3 Resp Effort & Inspection: normal respiratory effort Auscultation: clear to auscultation bilaterally Cardio Rate: regular rate Rhythm: regular rhythm GI Inspection: incision (Trochar sites are clean dry intact. No ecchymosis ) Palpation: soft and tender General: deferred Skin General skin exam: no rashes or lesions noted Extrem General: normal to inspection and full ROM Psych Appearance: grossly normal Mental Status: mental status grossly normal Speech and Movement: speech and movement normal Mood: congruent mood Affect: anxious affect Attitude: cooperative Results Labs 08/19/23 04:14 08/19/23 04:14 Labs: Laboratory Results - last 24 hr 08/19/23 08/19/23 04:14 04:45 WBC 8.59 RBC 4.52 Hgb 12.6 Hct 37.4 MCV 83 MCH 27.9 MCHC 33.7 RDW 13.2 Plt Count 343 MPV 9.4 Immature Gran % 0.2 Neutrophils % 64.7 Lymphocytes % 24.4 Monocytes % 7.3 Eosinophils % 3.1 Basophils % 0.3 Nucleated RBC % 0.0 Absolute Neutrophils 5.54 Absolute Lymphocytes 2.10 Absolute Monocytes 0.63 Absolute Eosinophils 0.27 Absolute Basophils 0.03 Sodium 140 Potassium 3.5 Chloride 104 Carbon Dioxide 26.2 Anion Gap 9.8 BUN 14 Creatinine 0.8 Est GFR (CKD-EPI 2020) 102.22 Glucose 93 Calcium 8.7 Total Bilirubin 0.5 AST 18 ALT 17 Alkaline Phosphatase 78 Total Protein 8.1 Albumin 4.0 Urine Color Yellow Urine Clarity Clear Urine pH 5.5 Ur Specific [place] >= 1.030 H Urine Protein Negative Urine Ketones Negative Urine Blood Negative Urine Nitrite Negative Urine Bilirubin Negative Urine Urobilinogen 0.2 Ur Leukocyte Esterase Negative Urine Glucose Negative Last Vital Signs Temp 98.1 F 08/19/23 16:43 Pulse 79 08/19/23 16:43 Resp 16 08/19/23 16:43 BP 117/76 08/19/23 16:43 Pulse Ox 99 08/19/23 16:43 Time Spent Time spent with Patient: <40 minutes Time was spent: preparing to see the patient(eg.review tests), counseling the patient and care coordination
[2023-08-19] MEDS: Lactated Ringers 1,000 ML 125 ML IV (18:15)
[2023-08-19] MEDS: Ondansetron O.D.T. 4 MG TABEF PO (20:30)
[2023-08-19] MEDS: Ketorolac 30 MG/ML VIAL IVP (21:28)
[2023-08-20] VITALS: BP 120/89; PULSE 85; RESP 17; TEMP 37.1; O2SAT 100
[2023-08-20] MEDS: Ondansetron O.D.T. 4 MG TABEF PO ×2 (00:26→07:47)
[2023-08-20] MEDS: oxyCODONE 5 mg/Acetaminophen 325 mg TAB 2 TAB PO ×3 (00:29→09:06)
[2023-08-20 01:15] VITALS: RESP 16
[2023-08-20 03:19] VITALS: BP 118/64; PULSE 61; RESP 18; TEMP 36.8; O2SAT 97
[2023-08-20] MEDS: Ibuprofen 600 MG TAB PO ×2 (03:54→09:05)
[2023-08-20] MEDS: Acetaminophen 500 MG TAB PO (05:46)
[2023-08-20 07:30] VITALS: BP 124/93; PULSE 90; RESP 20; TEMP 36.9; O2SAT 100
--- NOTE | 2023-08-20 07:48 | DSE_ITS ---
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 She underwent a laparoscopic R ovarian cystectomy of a benign appearing serous filled cyst. Pt had two issues that made discharge from DSU difficult: She was reluctant to use narcotics for pain relief at home and NSAIDs were not effective in controlling her postop pain. Patient had no available transportation to bring her home. Decision was made to admit her to Life Science Taxonomist status for postop observation. She will receive narcotics and NSAIDs for postop analgesia and was discharged to home 08/20/23. Home Meds and New Rx's Prescriptions: No Action cholecalciferol (vitamin D3) 250 mcg (10,000 unit) capsule 250 mcg PO DAILY Qty: 90 3RF albuterol sulfate 90 mcg/actuation HFA aerosol inhaler 2 puff inhalation Q6H PRN triamcinolone acetonide 55 mcg aerosol,spray 2 spray intranasal DAILY Patient Comments: INSTILL 2 SPRAYS INTO EACH NOSTRIL ONCE DAILY Discharge Instructions Additional Instructions: You have skin glue covering your incisions. You may shower at anytime. I recommend that you do not return to work until you speak with me on Tuesday08/22/23. Youi do not need to travel to the office. You will be given a time prior to your discharge home. You may take Ibuprofen 600mg ( 3 tablets of over the counter 200mg tablets) every 6 hours for pain. Take the Percocet that was prescribed one tablet every 6 hours along with the Ibuprofen every 6 hours for the next 48 hours. On Tuesday08/22/23 take only the Ibuprofen every 6 hours. I recommend that you rest as much as possible over the next 3 days. Stand Alone Forms: DSU Post Life Science Taxonomist SurgeryW/Incision Activity:: Activity as Tolerated Equipment/Supplies:: No Equipment Needed Diet:: As Tolerated Discharge Orders Discharge Orders: Discharge Order (Routine); Ordered 08/20/23 Ordered By: Josey Banks DS: Summary Time Spent with Patient providing and/or coordinating discharge services: Less than 30 minutes Status at Discharge Functional status at discharge: independent ambulation Overall status at discharge: patient is progressing back to baseline Mental Status: mental status grossly normal Speech and Movement: speech and movement normal Mood: anxious mood Affect: anxious affect Quality:SDOH Health Related Social Needs: Health related social needs transpo insecurity Health related social needs details NA Exam Narrative Exam Narrative: Pain improved with both Ibuprofen and Percocet. Still feels need for narcotics in addition to NSAIDs. OOB durng night. Anxious about degree of discomfort she can expect when at home. Const General: no acute distress Nutritional Appearance: well nourished Orientation: alert, awake and oriented x3 Resp Effort & Inspection: normal respiratory effort Auscultation: clear to auscultation bilaterally Cardio Rate: regular rate Rhythm: regular rhythm GI Inspection: incision (Trochar sites are clean dry intact. No ecchymosis ) and other (skin glue covering incisions.) Palpation: soft and tender General: deferred Skin General skin exam: no rashes or lesions noted Extrem General: normal to inspection and full ROM Psych Appearance: grossly normal Mental Status: mental status grossly normal Speech and Movement: speech and movement normal Mood: anxious mood Affect: anxious affect Attitude: cooperative Thought Process: normal Thought Content: normal Insight: insight good Judgment: judgment good DS: Data Vitals/I&O Vitals and I&O: Vital Signs Temperature 98.2 F 08/20/23 03:19 Temperature Source Tympanic 08/20/23 03:19 Pulse 61 08/20/23 03:19 Pulse Rhythm Regular 08/19/23 23:53 Respiratory Rate 18 08/20/23 03:19 Respiratory Effort Normal 08/19/23 23:53 Respiratory Depth Normal 08/19/23 23:53 Respiratory Pattern Normal 08/19/23 23:53 Blood Pressure 118/64 08/20/23 03:19 Pulse Oximetry 97 08/20/23 03:19 Respiratory End-tidal CO2 18 08/19/23 10:15 Oxygen Delivery Method Room Air 08/20/23 03:19 Oxygen Flow Rate 0 08/20/23 03:19 Pain Level 6 08/20/23 05:46 Comment shallo rapid breathing; pT crying from pain; RN informed 08/19/23 15:29 Intake & Output 08/19/23 08/19/23 08/20/23 11:59 23:59 11:59 Intake Total 1681.25 / 2254.584 573.334 / 2254.584 Output Total 305 / 305 0 / 305 Balance 1376.25 / 1949.584 573.334 / 1949.584 Weight 206 lb 205 lb 3 oz Intake: IV 1561.25 / 1894.584 333.334 / 1894.584 Oral 120 / 360 240 / 360 Output: Urine 300 / 300 Stool 0 / 0 Estimated Blood Loss Other: Urine Color Yellow Yellow Yellow Urine Appearance Clear Clear Clear Urine Odor None Emesis Description Retching Voiding Methods Toilet PFSH All Active Problems (Updated 08/19/23 @ 20:27 by Josey Banks MD) Post-op pain (Acute) Encounter for removal of intrauterine contraceptive device (Acute) Hx of ovarian cystectomy (Acute) Pelvic pain (Acute) Ovarian cyst (Acute) Anxiety (Chronic) Vitamin D deficiency (Acute) Iron deficiency anemia (Acute 11/15/13) 07/2021, HCT-34 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 Palpitations 07/2021-normal Holter. Stopped in 2021 Depression Not active symptoms. PTSD (post-traumatic stress disorder) Globus sensation No significant past medical history Surgical History [place] teeth extracted 06/2012 No significant past surgical history Family History Mother Thyroid disorder Social History Smoking/Tobacco Use Status: Former Tobacco Use tobacco type: cigarettes Quit Date: 04/11/14 Tobacco: How many years used: 8 Second Hand Exposure: Yes Smoking risk assessment performed?: Yes Alcohol Intake: never Drug use: Occasionally Substance use type: marijuana Household members: significant other and children Housing: house Number of Children: 2 Frequency: 5-6 times per week Seatbelt use: always Do you feel safe at home: Yes Do you feel safe in your relationship?: Yes History History 4 Para 2 Hx # Term Pregnancies 2 Multiple births Hx # Pregnancies Ectopic pregnancies AB induced Hx Number of Living Children 2 AB spontaneous 2 Time Spent with Patient Time Spent with Patient: <45 minutes Time was spent: preparing to see the patient(eg.review tests), obtaining and/or reviewing separately otained hiistory and counseling the patient
[2023-08-20] MEDS: Docusate Sodium 100 MG CAP PO (08:32)
[2023-08-20 13:18] LABS: Chlamydia Result Negative (Negative); GC Result Negative (Negative)
== END 2023-08-20 10:19 | disposition home or self-care (01) ==
LOC: ER 07:09 → SUR 07:44 → MS 12:59
PROVIDERS: Admitting Provider Obstetrics & Gynecology Gynecology; Emergency Provider Student in an Organized Health Care Education/Training Program; PCP Nurse Practitioner Family; Visit Provider Obstetrics & Gynecology Gynecology
PROC: (CPT 58662; principal; 2023-08-19 07:30)
DX: N83.11 Corpus luteum cyst of right ovary; Z97.5 Presence of (intrauterine) contraceptive device; G89.18 Other acute postprocedural pain; F41.8 Other specified anxiety disorders; E06.3 Autoimmune thyroiditis; D50.9 Iron deficiency anemia, unspecified; E55.9 Vitamin D deficiency, unspecified; Z87.891 Personal history of nicotine dependence; R10.2 Pelvic and perineal pain
CPT/HCPCS: 58662; 36415; 80053; 81025; 87491; 87591; 88305; 96361; 96365; 96375; 96376; 99285; 74177; 81003; 85025; 87480; 87510; 87660; G0378; J0131; J0665; J1100; J1170; J1885; J2001; J2060; J2250; J2270; J2405; J2704; J3010; J3490

== ENCOUNTER 2023-08-21 14:42 | Observation (INO) | payer MEDICAID, SELFPAY ==
[2023-08-21 14:49] VITALS: BP 165/119; PULSE 113; RESP 26; TEMP 36.9
--- NOTE | 2023-08-21 14:50 | ED.GENADUL_ITS ---
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 Clinical Impression: Post-op pain Primary Care Provider: Nargis Amezquita ED Provider: Gay Cabrera Home Meds and New Rx's Prescriptions: No Action cholecalciferol (vitamin D3) 250 mcg (10,000 unit) capsule 250 mcg PO DAILY Qty: 90 3RF albuterol sulfate 90 mcg/actuation HFA aerosol inhaler 2 puff inhalation Q6H PRN triamcinolone acetonide 55 mcg aerosol,spray 2 spray intranasal DAILY Patient Comments: INSTILL 2 SPRAYS INTO EACH NOSTRIL ONCE DAILY oxycodone-acetaminophen [Percocet] 5-325 mg tablet 1 tab PO Q6H MDD 4 PRN (Reason: pain) Qty: 10 0RF ibuprofen 600 mg tablet 600 mg PO Q6H PRN (Reason: pain) Qty: 60 0RF HPI General Mode of arrival: EMS . Date/Time Provider Initiated Documentation: 08/21/23 14:50 . Limitations to Documentation: no limitations . Information obtained by: patient, EMS and old records reviewed . HPI Narrative: 28yo F presenting via EMS for abdominal pain. History from patient, EMS, and [facility] records. Admitted to regional agronomist service at [facility] on 08/18 for right ovarian cyst with concern for possible torsion; had laprascopic right ovarian cystectomy (appeared to be serous cyst). Discharged home 08/19 (yesterday). Today called EMS for abdominal pain. Given 100mg of fentanyl and IV zofran prior to arrival. Patient reports severe pain ever since the surgery. Was advised to try to walk today; pain worse with ambulation. Intolerable at home. Last percocet and ibuprofen at 0900. Some vaginal bleeding today, not sure how much, has not been soaking through a pad. Associated nausea, no vomiting. She is otherwise in her usual state of health with no fevers, chills, rash, dysuria, hematuria, flank pain, or ohter concerns. Related Data Home Medications Medication Instructions Recorded Confirmed cholecalciferol (vitamin D3) 250 250 mcg PO DAILY #90 caps 05/12/22 08/19/23 mcg (10,000 unit) capsule albuterol sulfate 90 mcg/actuation 2 puff inhalation Q6H PRN 05/17/23 08/19/23 aerosol inhaler triamcinolone acetonide 55 mcg 2 spray intranasal DAILY 05/17/23 08/19/23 nasal spray aerosol ibuprofen 600 mg tablet 600 mg PO Q6H PRN pain #60 tabs 08/20/23 oxycodone-acetaminophen 5 mg-325 1 tab PO Q6H PRN pain #10 tabs 08/20/23 mg tablet (Percocet) Previous Rx's Medication Instructions Recorded cholecalciferol (vitamin D3) 250 250 mcg PO DAILY #90 caps 05/12/22 mcg (10,000 unit) capsule ibuprofen 600 mg tablet 600 mg PO Q6H PRN pain #60 tabs 08/20/23 oxycodone-acetaminophen 5 mg-325 1 tab PO Q6H PRN pain #10 tabs 08/20/23 mg tablet (Percocet) Allergies Allergy/AdvReac Type Severity Reaction Status Date / Time corn Allergy Severe Wheezing Verified 08/19/23 04:08 birch Allergy Severe Wheezing Uncoded 08/19/23 04:08 General MARTA: 3 Review of Systems Narrative: see HPI Exam Narrative Exam Narrative: General: Alert, crying. Head: Normocephalic, atraumatic Neck: Trachea midline, ?Neck supple. Cardiac: ?RRR, no murmurs appreciated Resp: No respiratory distress. CTAB. Abd: ?Soft, non-distended, nontender. Right mid abdomen TTP with voluntary guarding. Mild RLQ tenderness with no rebound or guarding. : ?No suprapubic tenderness. No CVA tenderness. Pelvic: Deferred Extremities: ?No deformities.? No peripheral edema. Neurologic: GCS 15. ? Moves all extremities freely against gravity Medical Decision Making 28yo F presenting via EMS for abdominal pain. History from patient, EMS, and [facility] records. Admitted to regional agronomist service at [facility] on 08/18 for right ovarian cyst with concern for possible torsion; had laprascopic right ovarian cystectomy (appeared to be serous cyst). Discharged home 08/19 (yesterday). Today called EMS for abdominal pain. Given 100mg of fentanyl and IV zofran prior to arrival. Pain has been severe since surgery but is worse this morning. Unclear how much vaginal bleeding but not soaking through pads. Right mid abdominal tendern ess on exam. Tachycardiac, hypertensive, tachypneic on arrival, likely 2/t to pain. Appears well perfused and abdominal exam not overtly peritoneal. Will add tylenol and toradol, allow time for fentanyl to kick in. Labs reviewed as below, CBC with no leukocytosis or anemia, CMP unremarkable, lipase negative. No US available on the weekend; CT abd/pelvis ordered and independently reviewed, no large amount of free fluid on my view, agree with radiology read below. On reassessment pain remains poorly controlled; given 8mf IV morphine and subsequently tolerable. METAL MIXER consulted and evaluated patient; will come in to [facility] for observation/post-op pain control. Awaiting transfer to the floor. Medical Records Medical records reviewed: Yes I reviewed the patient's medical records. Imaging Data Radiologic Study: Imaging: CT Scan Radiologist's impression: IMPRESSION: Trace pelvic fluid. No collection or active bleeding identified No evidence for recurrent right ovarian cyst Lab Data Lab results reviewed: Yes I reviewed the patient's lab results. Labs: Laboratory Tests Range/Units 08/21/23 15:15 WBC (4.4-10.8) 10^3/uL 9.70 RBC (3.93-5.22) 10^6/uL 4.14 Hgb (11.2-15.7) g/dL 11.5 Hct (36.0-46.0) % 34.1 L MCV (80-95) fL 82 MCH (27.0-33.0) pg 27.8 MCHC (32.0-36.0) % 33.7 RDW (11.7-14.6) % 13.3 Plt Count (130-400) 10^3/uL 321 MPV (8.0-11.0) fL 9.3 Immature Gran % % 0.3 Neutrophils % % 63.3 Lymphocytes % % 27.0 Monocytes % % 7.0 Eosinophils % % 1.9 Basophils % % 0.5 Nucleated RBC % (0.0-0.3) % 0.0 Absolute Neutrophils (1.2-6.7) 10^3/uL 6.14 Absolute Lymphocytes (1.2-3.4) 10^3/uL 2.62 Absolute Monocytes (0.1-0.8) 10^3/uL 0.68 Absolute Eosinophils (0.0-0.7) 10^3/uL 0.18 Absolute Basophils (0.0-0.2) 10^3/uL 0.05 VBG Lactate (0.6-1.4) mmol/L 1.3 Sodium (136-145) mmol/L 142 Potassium (3.5-5.1) mmol/L 3.7 Chloride (98-107) mmol/L 106 Carbon Dioxide (21.0-32.0) mmol/L 23.0 Anion Gap (3-11) mmol/L 13.0 H BUN (7-18) mg/dL 12 Creatinine (0.55-1.02) mg/dL 0.8 Est GFR (CKD-EPI 2020) (mL/min/1.73m2) 102.22 Glucose (74-106) mg/dL 90 Calcium (8.5-10.1) mg/dL 8.4 L Total Bilirubin (0.2-1.0) mg/dL 0.3 AST (15-37) U/L 13 L ALT (14-59) U/L 19 Alkaline Phosphatase (46-116) U/L 66 Total Protein (6.4-8.2) g/dL 7.2 Albumin (3.4-5.0) g/dL 3.6 Lipase (16-77) U/L 35 Serum HCG, Qual Negative Quality:SDOH Health Related Social Needs: Health related social needs transpo insecurity Health related social needs details NA PFS All Active Problems (Updated 08/21/23 @ 17:58 by Gay Cabrera MD) Post-op pain (Acute) Encounter for removal of intrauterine contraceptive device (Acute) Hx of ovarian cystectomy (Acute) Pelvic pain (Acute) Anxiety (Chronic) Vitamin D deficiency (Acute) Iron deficiency anemia (Acute 11/15/13) 07/2021, HCT-34 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 Palpitations 07/2021-normal Holter. Stopped in 2021 Depression Not active symptoms. PTSD (post-traumatic stress disorder) Globus sensation No significant past medical history Surgical History [place] teeth extracted 06/2012 No significant past surgical history Family History Mother Thyroid disorder Social History Smoking/Tobacco Use Status: Former Tobacco Use tobacco type: cigarettes Quit Date: 04/11/14 Tobacco: How many years used: 8 Second Hand Exposure: Yes Smoking risk assessment performed?: Yes Alcohol Intake: never Drug use: Occasionally Substance use type: marijuana Household members: significant other and children Housing: house Number of Children: 2 Frequency: 5-6 times per week Seatbelt use: always Do you feel safe at home: Yes Do you feel safe in your relationship?: Yes History History 4 Para 2 Hx # Term Pregnancies 2 Multiple births Hx # Pregnancies Ectopic pregnancies AB induced Hx Number of Living Children 2 AB spontaneous 2
--- NOTE | 2023-08-21 15:00 | DI.CT_ITS ---
Exam(s) CT ABDOMEN PELVIS W EXAM: CT ABDOMEN PELVIS W CLINICAL HISTORY: abdominal pain s/p right ovary cystectomy TECHNIQUE: Imaging Protocol: Axial computed tomography images with coronal and sagittal reformatted images were created and reviewed. CONTRAST MATERIAL: Intravenous: Omnipaque 350 Contrast volume:100 mL Oral: No COMPARISON: CT UPPER ABD WITH CONTRAST (P) from 09/15/2008 CT ABD PELVIS WITH CONTRAST from 04/30/[address] ABDOMEN PELVIS W from 08/19/2023 FINDINGS: The examination is limited due to patient motion artifact. ABDOMEN: Lung Bases: Normal where visualized. Liver: Normal density. No measurable mass. Portal, Superior Mesenteric, and Splenic Veins: Unremarkable. Gallbladder and Biliary Tract: No radiodense calculus or dilation. Pancreas: Normal density, no abnormal calcifications or inflammatory process. Spleen: Normal. Adrenals: No masses seen. Kidneys: Normal size, contour and axis. No radiodense stones or obstructive uropathy. No masses seen. Abdominal Aorta: Abdominal portion non-dilated. Bowel: No obstruction or bowel wall thickening. No evidence of appendicitis. Peritoneal Cavity: There is a trace amount of fluid in the cul-de-sac. Single focus of intra-abdomin al air in the left lower quadrant (series 5, image 600). Lymph Nodes: Within normal limits. Bones: Within normal limits for the patient's age. Soft Tissues: There is a small fat containing umbilical hernia. No focal fluid collection is seen in the subcutaneous tissues. There is a tiny focus of air in the anterior abdominal wall which may ref lect recent surgery. PELVIS: Bladder: Symmetric distention, no gross wall thickening. Reproductive Organs: The previously seen right ovarian cyst is no longer visualized. The IUD has bee n removed. Lymph Nodes: Within normal limits. Bones: Within normal limits for the patient's age. IMPRESSION: 1. The right ovarian cyst is no longer visualized. The patient is status post right ovary cystectomy . There are few foci of air seen in the anterior abdominal wall which are likely postsurgical. No f ocal fluid collection is seen to suggest an abscess. 2. There is a single focus of intra-abdominal air in the left inferior abdomen which is likely postsu rgical. (Series 5, image 600). No intra-abdominal abscess. 3. Interval removal of the IUD. RADIATION DOSE DELIVERED: 1,230.68mGy.cm Total DLP DATA REPOSITORY: All CT scans at this facility are submitted to the National Radiology Data Registry (NRDR) Dose Index Registry (DIR) with the [employer] (A[employer]). RADIATION OPTIMIZATION: All CT scans at this facility use at least one of these dose optimization te chniques: automated exposure control; mA and/or kV adjustment per patient size (includes targeted exa ms where dose is matched to clinical indication); or iterative reconstruction.
[2023-08-21 15:26] LABS: Lactate 1.3 mmol/L (0.6-1.4)
[2023-08-21 15:28] LABS: Abs Immature Grans 0.03 10^3/uL (0.0-0.06); Absolute Basophil Count 0.05 10^3/uL (0.0-0.2); Absolute Eosinophil Count 0.18 10^3/uL (0.0-0.7); Absolute Lymphocyte Count 2.62 10^3/uL (1.2-3.4); Absolute Monocyte Count 0.68 10^3/uL (0.1-0.8); Absolute Neutrophil Count 6.14 10^3/uL (1.2-6.7); Basophils % 0.5 %; Eosinophils % 1.9 %; HCT 34.1 % (36.0-46.0); HGB 11.5 g/dL (11.2-15.7); Immature Grans % 0.3 %; MCH 27.8 pg (27.0-33.0); MCHC 33.7 % (32.0-36.0); MCV 82 fL (80-95); MPV 9.3 fL (8.0-11.0); Neutrophils % 63.3 %; Platelet Count 321 10^3/uL (130-400); RBC 4.14 10^6/uL (3.93-5.22); RDW 13.3 % (11.7-14.6)
[2023-08-21] MEDS: Normal Saline - Diluent 50 ML VIAL IJ (15:32)
[2023-08-21] MEDS: Omnipaque 350 MG/ML 100 ML BTL IJ (15:33)
[2023-08-21] MEDS: ACETAMINOPHEN 1,000 MG/100 ML BTL 400 MG IVPB (15:42)
[2023-08-21] MEDS: Ketorolac 15 MG/ML VIAL IVP (15:43)
[2023-08-21 15:46] LABS: HCG Qual (Serum) Negative
[2023-08-21 15:49] LABS: ALT 19 U/L (14-59); AST 13 U/L (15-37); Albumin 3.6 g/dL (3.4-5.0); Alkaline Phosphatase 66 U/L (46-116); BUN 12 mg/dL (7-18); Bilirubin, Total 0.3 mg/dL (0.2-1.0); CREATININE 0.8 mg/dL (0.55-1.02); Calcium 8.4 mg/dL (8.5-10.1); Chloride 106 mmol/L (98-107); Estimated GFR 102.22 (mL/min/1.73m2); Glucose 90 mg/dL (74-106); Lipase 35 U/L (16-77); Potassium 3.7 mmol/L (3.5-5.1); Sodium 142 mmol/L (136-145); Total Protein 7.2 g/dL (6.4-8.2)
[2023-08-21] MEDS: MORPHine 10 MG/ML VIAL 8 MG IVP (16:39)
--- NOTE | 2023-08-21 16:49 | DI.VRAD_ITS ---
PROCEDURE INFORMATION: Exam: CT Abdomen And Pelvis With Contrast Exam date and time: 08/21/2023 3:31 PM Age: 28 years old Clinical indication: Other: Abdominal pain S/P right ovary cystectomy; Prior surgery; Surgery date: Post-operative (0-2 days); Surgery type: Right ovarian cyst TECHNIQUE: Imaging protocol: Computed tomography of the abdomen and pelvis with contrast. Contrast material: OMNIPAQUE 350; Contrast volume: 100 ml; Contrast route: INTRAVENOUS (IV); COMPARISON: CT ABDOMEN PELVIS W 08/19/2023 5:33 AM FINDINGS: Liver: Fatty infiltration. No mass. Gallbladder and bile ducts: Normal. No calcified stones. No ductal dilation. Pancreas: Normal. No ductal dilation. Spleen: Normal. No splenomegaly. Adrenal glands: Normal. No mass. Kidneys and ureters: Normal. No hydronephrosis. Stomach and bowel: Unremarkable. No obstruction. No mucosal thickening. Appendix: No evidence of appendicitis. Intraperitoneal space: Trace pelvic fluid. No free air. No significant fluid collection. Vasculature: Unremarkable. No abdominal aortic aneurysm. Lymph nodes: Unremarkable. No enlarged lymph nodes. Urinary bladder: Unremarkable as visualized. Reproductive: Unremarkable as visualized. Bones/joints: Unremarkable. No acute fracture. Soft tissues: Tiny fat containing periumbilical hernia. IMPRESSION: Trace pelvic fluid. No collection or active bleeding identified No evidence for recurrent right ovarian cyst Dictated and Authenticated by: Honorio Mallory MD. Ordering:KENNY Rashid MD
[2023-08-21 17:46] VITALS: BP 108/65; PULSE 98; RESP 16; TEMP 36.7; O2SAT 99
--- NOTE | 2023-08-21 17:55 | HPE_ITS ---
Date of service: 08/21/23 Time of Service: 17:55 Assessment and Plan Assessment and plan (1) Hx of ovarian cystectomy: Status: Acute Assessment and plan: Patient is postoperative day #2 status post right ovarian cystectomy with IUD removal at that time. She does have postoperative pain which has been difficult to manage at home per the patient. She will be admitted for short stay observation with parenteral pain medication, followed by oral pain medication and antiemetics as necessary. Will monitor her vital signs. She will have accurate I's and O's. I would anticipate discharge home tomorrow with a different pain regime. All questions answered. (2) Post-op pain: Status: Acute History of Present Illness History of Present Illness Chief Complaint: Postoperative pain Narrative: Patient is a 28-year-old female who underwent an operative laparoscopy with right ovarian cystectomy on 08/19/2023. She was held overnight for observation and pain control and discharged home postoperative day #1. She called earlier this morning with a small amount of vaginal bleeding. Subsequent to this, she had worsening of her pain which was not controlled with her oral Percocet and ibuprofen. In light of this fact, she was brought via EMS to the emergency department. She had a full and thorough evaluation including CT scan of the abdomen which confirmed removal of right ovarian cyst small amount of postsurgical air in the anterior abdominal wall no fluid collection suggesting abscess, small amount of postoperative intra-abdominal air in the left inferior abdomen. Vital signs are appropriate hemoglobin stable at 11.5, no white blood cell count elevation. On examination, she is alert and oriented though as we speak about her pain becomes very anxious and tearful. She states that she is unable to tolerate her pain at home and has fear of returning home and coming back to the emergency department tonight with increase in pain. Her vaginal bleeding has significantly decreased. In light of this, the suggestion will be to admit her for observation and pain management. We discussed appropriate pain control which initially will be IV pain medications, Dilaudid. She will hopefully be transition to oral pain medication within the next 12 to 24 hours. Will continue to monitor her vital signs and her urine output. She seems content with this plan and will be admitted as a short stay to the center. Review of Systems Narrative: Patient states she has worsening pain diffusely throughout her abdomen. When her pain is at its maximum, she has a difficult time in standing upright or voiding appropriately. She has no nausea or vomiting. She is tolerating oral intake and passing flatus. Constitutional Constitutional: Reports as per HPI, Denies fever(s), Denies headache(s) and Denies malaise ENT Ears, Nose, Mouth, and Throat: Denies headache(s) Cardiovascular Cardiovascular: Reports system reviewed and no additional complaints, except as documented, Denies chest pain and Denies irregular heart rhythm Respiratory Respiratory: Reports system reviewed and no additional complaints, except as documented, Denies chest congestion and Denies cough Gastrointestinal Gastrointestinal: Reports as per HPI, Denies bloating, Denies constipation and Reports cramping Genitourinary Genitourinary: Reports system reviewed and no additional complaints, except as documented Musculoskeletal Musculoskeletal: Reports system reviewed and no additional complaints, except as documented Neurologic Neurologic: Denies headache(s) Psychiatric Psychiatric: Reports system reviewed and no additional complaints, except as documented PFSH All Active Problems (Updated 08/21/23 @ 17:58 by Gay Cabrera MD) Post-op pain (Acute) Encounter for removal of intrauterine contraceptive device (Acute) Hx of ovarian cystectomy (Acute) Pelvic pain (Acute) Anxiety (Chronic) Vitamin D deficiency (Acute) Iron deficiency anemia (Acute 11/15/13) 07/2021, HCT-34 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 Palpitations 07/2021-normal Holter. Stopped in 2021 Depression Not active symptoms. PTSD (post-traumatic stress disorder) Globus sensation No significant past medical history Surgical History [place] teeth extracted 06/2012 No significant past surgical history Family History Mother Thyroid disorder Social History Smoking/Tobacco Use Status: Former Tobacco Use tobacco type: cigarettes Quit Date: 04/11/14 Tobacco: How many years used: 8 Second Hand Exposure: Yes Smoking risk assessment performed?: Yes Alcohol Intake: never Drug use: Occasionally Substance use type: marijuana Household members: significant other and children Housing: house Number of Children: 2 Frequency: 5-6 times per week Seatbelt use: always Do you feel safe at home: Yes Do you feel safe in your relationship?: Yes History History 2 4 Para 2 Hx # Term Pregnancies 2 Multiple births Hx # Pregnancies Ectopic pregnancies AB induced Hx Number of Living Children 2 AB spontaneous 2 Meds Allergies and Home Medications Allergies Allergy/AdvReac Type Severity Reaction Status Date / Time corn Allergy Severe Wheezing Verified 08/19/23 04:08 birch Allergy Severe Wheezing Uncoded 08/19/23 04:08 Home Medications Medication Instructions Recorded Confirmed Type cholecalciferol (vitamin D3) 250 250 mcg PO DAILY #90 caps 05/12/22 08/19/23 Rx mcg (10,000 unit) capsule albuterol sulfate 90 mcg/actuation 2 puff inhalation Q6H PRN 05/17/23 08/19/23 History aerosol inhaler triamcinolone acetonide 55 mcg 2 spray intranasal DAILY 05/17/23 08/19/23 History nasal spray aerosol ibuprofen 600 mg tablet 600 mg PO Q6H PRN pain #60 tabs 08/20/23 Rx oxycodone-acetaminophen 5 mg-325 1 tab PO Q6H PRN pain #10 tabs 08/20/23 Rx mg tablet (Percocet) Exam Narrative Exam Narrative: Alert, oriented, appropriate. Somewhat anxious when discussing pain management strategies. Const General: cooperative, healthy appearing, comfortable, no acute distress, well developed and well groomed Nutritional Appearance: overweight Orientation: alert, awake and oriented x3 HENMT Head: normal to inspection Eyes General: appearance normal, both eyes and all related structures Neck Neck: normal visual inspection Resp Effort & Inspection: normal respiratory effort, no audible wheezes and no cough Cardio Rate: regular rate Rhythm: regular rhythm GI Inspection: normal to inspection, no edema, non-distended and incision (No erythema, ecchymosis, or induration) Palpation: soft, not firm and guarding (Mild, diffuse) Auscultation: normal bowel sounds Skin General skin exam: no rashes or lesions noted Extrem General: normal to inspection, no clubbing, cyanosis or edema and no calf tenderness Psych Appearance: grossly normal Mental Status: mental status grossly normal Speech and Movement: speech and movement normal Mood: anxious mood Affect: anxious affect Attitude: cooperative Thought Process: normal Thought Content: normal Results Labs 08/21/23 15:15 08/21/23 15:15 Labs: Laboratory Results - last 24 hr 08/21/23 15:15 WBC 9.70 RBC 4.14 Hgb 11.5 Hct 34.1 L MCV 82 MCH 27.8 MCHC 33.7 RDW 13.3 Plt Count 321 MPV 9.3 Immature Gran % 0.3 Neutrophils % 63.3 Lymphocytes % 27.0 Monocytes % 7.0 Eosinophils % 1.9 Basophils % 0.5 Nucleated RBC % 0.0 Absolute Neutrophils 6.14 Absolute Lymphocytes 2.62 Absolute Monocytes 0.68 Absolute Eosinophils 0.18 Absolute Basophils 0.05 VBG Lactate 1.3 Sodium 142 Potassium 3.7 Chloride 106 Carbon Dioxide 23.0 Anion Gap 13.0 H BUN 12 Creatinine 0.8 Est GFR (CKD-EPI 2020) 102.22 Glucose 90 Calcium 8.4 L Total Bilirubin 0.3 AST 13 L ALT 19 Alkaline Phosphatase 66 Total Protein 7.2 Albumin 3.6 Lipase 35 Serum HCG, Qual Negative Last Vital Signs Temp 98.1 F 08/21/23 17:46 Pulse 98 H 08/21/23 17:46 Resp 16 08/21/23 17:46 BP 108/65 08/21/23 17:46 Pulse Ox 99 08/21/23 17:46 Time Spent Time spent with Patient: 55-74 minutes Time was spent: preparing to see the patient(eg.review tests), obtaining and/or reviewing separately otained hiistory, ordering medications,tests, procedures, referring, communicating with other health direct care supervisor, indepentently interpreting results, counseling the patient and care coordination
[2023-08-21 18:34] VITALS: BP 108/65; PULSE 98; RESP 16; TEMP 36.7; O2SAT 99
[2023-08-21 18:35] VITALS: BP 105/71; PULSE 72; RESP 16; TEMP 36.8; O2SAT 99
[2023-08-21 19:40] VITALS: BP 112/67; PULSE 75; RESP 18; TEMP 36.6; O2SAT 98
[2023-08-21] MEDS: Normal Saline Flush 10 ML SYR ×2 (19:40→20:23)
[2023-08-21] MEDS: Ondansetron 4 MG/2 ML VIAL IVP (19:40)
[2023-08-21] MEDS: HYDROmorphone 2 MG TAB PO (19:40)
[2023-08-21] MEDS: Docusate Sodium 100 MG CAP PO (19:40)
[2023-08-21] MEDS: HYDROmorphone 2 MG/ML SYR 1 MG IVP (20:23)
[2023-08-21] MEDS: hydrOXYzine PAMOATE 25 MG CAP 50 MG PO (21:40)
[2023-08-21 22:00] VITALS: BP 106/79; PULSE 82; RESP 16; TEMP 36.6; O2SAT 99
[2023-08-21] MEDS: Lactated Ringers 1,000 ML 250 ML IV (22:49)
[2023-08-21] MEDS: Metoclopramide 10 MG/2 ML VIAL IVP (22:49)
[2023-08-21] MEDS: Ibuprofen 600 MG TAB 800 MG PO (22:55)
[2023-08-21] MEDS: Acetaminophen 500 MG TAB 1000 MG PO (22:55)
[2023-08-22] MEDS: HYDROmorphone 2 MG/ML SYR 1 MG IVP ×2 (01:56→06:39)
[2023-08-22 02:02] VITALS: BP 104/69; PULSE 72; RESP 15; TEMP 36.4; O2SAT 98
[2023-08-22 06:20] VITALS: BP 107/72; PULSE 75; RESP 16; TEMP 36.8; O2SAT 98
[2023-08-22] MEDS: Acetaminophen 500 MG TAB 1000 MG PO ×2 (06:20→11:42)
[2023-08-22] MEDS: Metoclopramide 10 MG/2 ML VIAL IVP (06:20)
[2023-08-22] MEDS: Normal Saline Flush 10 ML SYR IVP ×2 (06:40→11:44)
[2023-08-22 09:10] VITALS: BP 133/77; PULSE 75; RESP 16; TEMP 36.4; O2SAT 100
[2023-08-22] MEDS: Bisacodyl 5 MG TABEC PO (09:52)
[2023-08-22] MEDS: Docusate Sodium 100 MG CAP PO (09:52)
--- NOTE | 2023-08-22 10:47 | W.PM.DS.N ---
Date of service: 08/22/23 Time of Service: 10:48 DS: Diagnosis Discharge Diagnosis (1) Hx of ovarian cystectomy: Status: Acute (2) Post-op pain: Status: Acute Discharge Plan Disposition Patient Disposition: Home Condition: Fair Discharge Details Reason For Visit: Post op Pain Admit Date/Time: 08/21/23 17:54 Admit Provider: Miracle Perez Attending Provider: Miracle Perez Primary Care Provider: Nargis Amezquita Hospital Course Hospital Course: Patient is a 28-year-old female who underwent an operative laparoscopy with right ovarian cystectomy on 08/19/2023. She was held overnight for observation and pain control and discharged home postoperative day #1. She called earlier on POD 2 08/21/23 with a small amount of vaginal bleeding. Subsequent to this, she had worsening of her pain which was not controlled with her oral Percocet and ibuprofen. In light of this fact, she was brought via EMS to the emergency department. Evaluation in the ER including CT scan of the abdomen which confirmed removal of right ovarian cyst small amount of postsurgical air in the anterior abdominal wall no fluid collection suggesting abscess, small amount of postoperative intra-abdominal air in the left inferior abdomen. Vital signs are appropriate hemoglobin stable at 11.5, no white blood cell count elevation. Pt was admitted for observation and received Hydromorphone, NSAIDs and Ondansetron. She continued to report episodic pelvic pain, right greater the left side. 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 She received a Dulcolax tablet prior to discharge and had her postop pain meds changed to Hydrocodone 5/325mg one tablet every 6 hours as needed for pain alternating with Ibuprofen 600mg ever six hours for pain. She will f/u with me on Tuesday08/26/23. Home Meds and New Rx's Prescriptions: New hydroxyzine pamoate [Vistaril] 25 mg Capsule 50 mg PO Q8H PRN PRN (Reason: Agitation) Qty: 10 0RF Continued albuterol sulfate 90 mcg/actuation HFA aerosol inhaler 2 puff inhalation Q6H PRN ibuprofen 600 mg tablet 600 mg PO Q6H PRN (Reason: pain) Qty: 60 0RF No Action cholecalciferol (vitamin D3) 250 mcg (10,000 unit) capsule 250 mcg PO DAILY Qty: 90 3RF Discharge Instructions Additional Instructions: Take the Hydrocodone/Acetaminophen 7.5/325mg every 6 hours for pain. Take the Ibuprofen 600mg every 6hrs for pain. Initially take the Hydrocodone/Hydrocodone and then in 3 hours take the Ibuprofen followed by another dose of the Hydrocodone/Acetaminophen three hours later. Make a chart and keep it next to your medications. You have an appointment to see Dr. Banks on Tuesday08/26/23 at 10:20 am. Activity:: Activity as Tolerated Equipment/Supplies:: No Equipment Needed Diet:: As Tolerated Discharge Orders Discharge Orders: Discharge Order (Routine); Ordered 08/22/23 Ordered By: Josey Banks DS: Summary Time Spent with Patient providing and/or coordinating discharge services: Less than 30 minutes Status at Discharge Functional status at discharge: independent ambulation Overall status at discharge: patient is progressing back to baseline Mental Status: mental status grossly normal Speech and Movement: speech and movement normal Mood: anxious mood Affect: anxious affect Quality:SDOH Health Related Social Needs: Health related social needs transpo insecurity Health related social needs details NA Exam Narrative Exam Narrative: Alert, oriented, appropriate. Somewhat anxious when discussing pain management strategies. Const General: cooperative, healthy appearing, comfortable, no acute distress, well developed and well groomed Nutritional Appearance: overweight Orientation: alert, awake and oriented x3 HENMT Head: normal to inspection Eyes General: appearance normal, both eyes and all related structures Neck Neck: normal visual inspection Resp Effort & Inspection: normal respiratory effort, no audible wheezes and no cough Cardio Rate: regular rate Rhythm: regular rhythm GI Inspection: normal to inspection, no edema, non-distended and incision (No erythema, ecchymosis, or induration) Palpation: soft, not firm and guarding (Mild, diffuse) Auscultation: normal bowel sounds Skin General skin exam: no rashes or lesions noted Extrem General: normal to inspection, no clubbing, cyanosis or edema and no calf tenderness Psych Appearance: grossly normal Mental Status: mental status grossly normal Speech and Movement: speech and movement normal Mood: anxious mood Affect: anxious affect Attitude: cooperative Thought Process: normal Thought Content: normal DS: Data Vitals/I&O Vitals and I&O: Vital Signs Temperature 97.5 F L 08/22/23 09:10 Temperature Source Oral 08/22/23 09:10 Pulse 75 08/22/23 09:10 Pulse Rhythm Regular 08/22/23 09:10 Respiratory Rate 16 08/22/23 09:10 Respiratory Effort Normal 08/22/23 09:10 Respiratory Depth Normal 08/22/23 09:10 Respiratory Pattern Normal 08/22/23 09:10 Blood Pressure 133/77 08/22/23 09:10 Blood Pressure Position Supine 08/21/23 14:49 Pulse Oximetry 100 08/22/23 09:10 Oxygen Delivery Method Room Air 08/22/23 09:10 Oxygen Flow Rate 0 08/22/23 09:10 Pain Level 5 08/22/23 09:53 Intake & Output 08/21/23 08/21/23 08/22/23 11:59 23:59 11:59 Intake Total 110 / 110 1000 / 1000 Output Total 600 / 600 Balance -490 / -490 1000 / 1000 Intake: IV 110 / 110 1000 / 1000 Output: Urine 600 / 600 Other: Urine Color Yellow Urine Appearance Clear Urine Odor None Data Completed and Pending Pending studies at discharge: path report on adnexal cyst wall Labs on day of discharge: Labs from last 24 hours 08/21/23 15:15 WBC 9.70 RBC 4.14 Hgb 11.5 Hct 34.1 L MCV 82 MCH 27.8 MCHC 33.7 RDW 13.3 Plt Count 321 MPV 9.3 Immature Gran % 0.3 Neutrophils % 63.3 Lymphocytes % 27.0 Monocytes % 7.0 Eosinophils % 1.9 Basophils % 0.5 Nucleated RBC % 0.0 Absolute Neutrophils 6.14 Absolute Lymphocytes 2.62 Absolute Monocytes 0.68 Absolute Eosinophils 0.18 Absolute Basophils 0.05 VBG Lactate 1.3 Sodium 142 Potassium 3.7 Chloride 106 Carbon Dioxide 23.0 Anion Gap 13.0 H BUN 12 Creatinine 0.8 Est GFR (CKD-EPI 2020) 102.22 Glucose 90 Calcium 8.4 L Total Bilirubin 0.3 AST 13 L ALT 19 Alkaline Phosphatase 66 Total Protein 7.2 Albumin 3.6 Lipase 35 Serum HCG, Qual Negative PFSH All Active Problems (Updated 08/21/23 @ 17:58 by Gay Cabrera MD) Post-op pain (Acute) Encounter for removal of intrauterine contraceptive device (Acute) Hx of ovarian cystectomy (Acute) Pelvic pain (Acute) Anxiety (Chronic) Vitamin D deficiency (Acute) Iron deficiency anemia (Acute 11/15/13) 07/2021, HCT-34 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 Palpitations 07/2021-normal Holter. Stopped in 2021 Depression Not active symptoms. PTSD (post-traumatic stress disorder) Globus sensation No significant past medical history Surgical History [place] teeth extracted 06/2012 No significant past surgical history Family History Mother Thyroid disorder Social History Smoking/Tobacco Use Status: Former Tobacco Use tobacco type: cigarettes Quit Date: 04/11/14 Tobacco: How many years used: 8 Second Hand Exposure: Yes Smoking risk assessment performed?: Yes Alcohol Intake: never Drug use: Occasionally Substance use type: marijuana Household members: significant other and children Housing: house Number of Children: 2 Frequency: 5-6 times per week Seatbelt use: always Do you feel safe at home: Yes Do you feel safe in your relationship?: Yes History History 4 Para 2 Hx # Term Pregnancies 2 Multiple births Hx # Pregnancies Ectopic pregnancies AB induced Hx Number of Living Children 2 AB spontaneous 2 Time Spent with Patient Time Spent with Patient: <45 minutes Time was spent: preparing to see the patient(eg.review tests), obtaining and/or reviewing separately otained hiistory, indepentently interpreting results and counseling the patient
[2023-08-22] MEDS: Ondansetron 4 MG/2 ML VIAL IVP (11:44)
[2023-08-22] MEDS: hydrOXYzine PAMOATE 25 MG CAP 50 MG PO (11:51)
== END 2023-08-22 12:20 | disposition home or self-care (01) ==
LOC: ER 17:58 → OBS 18:22
PROVIDERS: Admitting Provider Obstetrics & Gynecology; Emergency Provider Student in an Organized Health Care Education/Training Program; PCP Nurse Practitioner Family; Visit Provider Obstetrics & Gynecology
DX: G89.18 Other acute postprocedural pain; R10.2 Pelvic and perineal pain; Z98.890 Other specified postprocedural states; Z79.899 Other long term (current) drug therapy; F41.0 Panic disorder [episodic paroxysmal anxiety]; E55.9 Vitamin D deficiency, unspecified; I50.9 Heart failure, unspecified; E06.3 Autoimmune thyroiditis
CPT/HCPCS: 80053; 83690; 96365; 96375; 96376; 99285; 74177; 83605; 84703; 85025; J0131; J1170; J1885; J2270; J2405; J2765; J3490

== ENCOUNTER 2023-09-01 11:33 | Emergency (ER) | payer MEDICAID, SELFPAY ==
[2023-09-01 11:42] VITALS: BP 112/85; PULSE 92; RESP 18; TEMP 37.1; O2SAT 100
--- NOTE | 2023-09-01 12:08 | ED.GENADUL_ITS ---
Discharge Plan Disposition Patient Disposition: Home Condition: Good Discharge Details Clinical Impression: Irritation of left eye Primary Care Provider: Nargis Amezquita ED Provider: Karthikeyan Scott Home Meds and New Rx's Prescriptions: No Action hydrocodone-acetaminophen 7.5-325 mg tablet 1 tab PO Q6H MDD 4 PRN (Reason: pain) Qty: 20 0RF cholecalciferol (vitamin D3) 250 mcg (10,000 unit) capsule 250 mcg PO DAILY Qty: 90 3RF albuterol sulfate 90 mcg/actuation HFA aerosol inhaler 2 puff inhalation Q6H PRN ibuprofen 600 mg tablet 600 mg PO Q6H PRN (Reason: pain) Qty: 60 0RF hydroxyzine pamoate [Vistaril] 25 mg capsule 50 mg PO Q8H PRN PRN (Reason: Agitation) Qty: 10 0RF Discharge Instructions Additional Instructions: At this time there is no evidence of organophosphate toxicity, atropine toxicity, or other significant abnormality for the eyeball itself. The pH in your eye is normal. I suspect you have a mild contact irritation from the chemicals from the ant spray, but there is no evidence of ulcer, or other significant abnormality at this time. Please apply lubricating eyedrop every 4- 6 hours. Please follow up closely with your certified indoor environmentalist. If you notice any worsening of your symptoms, or any new symptoms such as vomiting, diarrhea, fever, chills, shortness of breath, chest pain, numbness, weakness, or fainting , please return immediately to the emergency department for reevaluation. Please follow up with your primary care provider as soon as possible for reassessment and reevaluation. As always, it was a pleasure participating in your medical care today. Referrals: [facility] [Outside] Nargis Amezquita NP [Primary Care Provider] - Discharge Data Discharge Date/Time-TO BE ENTERED AT DEPARTURE: 09/01/23 12:15 HPI General Date/Time Provider Initiated Documentation: 09/01/23 11:46 . HPI Narrative: This is a very pleasant 28-year-old female who presents today for left eye pain. Patient states that she was outside when someone was spraying ant killer pesticide. Some of it drifted through the window and got into her left eye causing some mild irritation. She washed it out multiple times but had some persistent sensation of irritation and came to the ER for further assessment. She admits to minimal change in vision described as mild blurry vision. She denies any color changes otherwise. She denies any other sensation, dark curtain, or other trauma. No other complaints at this time. Her right eye is unaffected. Related Data Home Medications Medication Instructions Recorded Confirmed cholecalciferol (vitamin D3) 250 250 mcg PO DAILY #90 caps 05/12/22 08/26/23 mcg (10,000 unit) capsule albuterol sulfate 90 mcg/actuation 2 puff inhalation Q6H PRN 05/17/23 08/26/23 aerosol inhaler ibuprofen 600 mg tablet 600 mg PO Q6H PRN pain #60 tabs 08/20/23 08/26/23 hydrocodone 7.5 mg-acetaminophen 1 tab PO Q6H PRN pain #20 tabs 08/22/23 08/26/23 325 mg tablet hydroxyzine pamoate 25 mg capsule 50 mg (2 x 25 mg) PO Q8H PRN PRN 08/30/23 (Vistaril) Agitation #10 caps Previous Rx's Medication Instructions Recorded cholecalciferol (vitamin D3) 250 250 mcg PO DAILY #90 caps 05/12/22 mcg (10,000 unit) capsule ibuprofen 600 mg tablet 600 mg PO Q6H PRN pain #60 tabs 08/20/23 hydrocodone 7.5 mg-acetaminophen 1 tab PO Q6H PRN pain #20 tabs 08/22/23 325 mg tablet hydroxyzine pamoate 25 mg capsule 50 mg (2 x 25 mg) PO Q8H PRN PRN 08/30/23 (Vistaril) Agitation #10 caps Allergies Allergy/AdvReac Type Severity Reaction Status Date / Time corn Allergy Severe Wheezing Verified 09/01/23 11:45 birch Allergy Severe Wheezing Uncoded 09/01/23 11:45 General Stated Complaint: EyeProblem MARTA: 4 Review of Systems All systems reviewed & are unremarkable except as noted in HPI and below Exam Narrative Exam Narrative: 1.Const: Well-nourished, Well-developed, appearing stated age 2.Eyes: Left eye: EOMI, PERRL, Peripheral vision intact. No nystagmus. Fundoscopic exam shows normal optic discs and normal vasculature. No clinical signs of septal/orbital cellulitis, no redness around the eye, no proptosis. No hyphema, no signs of trauma around the eye, no periorbital emphysema. No sluggishness of the pupil. No ophthalmoplegia. No afferent pupillary defect. Fluorescein exam is negative for any significant corneal abrasion, negative Santhosh sign. Visual acuity as documented in chart. pH is between 7.1 and 7 for each eye. 3.ENT: Atraumatic external nose and ears. Moist MM. Neck: Symmetric, trachea midline, No thyromegaly. 4.CVS: +S1/S2, No murmurs or gallops. Peripheral pulses 2+ and equal in all extremities. Brisk capillary refill in all extremities. 5.RESP: Unlabored respiratory effort. Clear to auscultation bilaterally. No wheezes rales or rhonchi 6.GI: Soft, Nontender/Nondistended, No hepatosplenomegaly. No guarding or rebound. 7.MSK: Normocephalic/Atraumatic, Extremities w/o deformity or ttp No cyanosis or clubbing, Normal movement of all extremities 8.Skin: Warm, Dry. No rashes or lesions. 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 Sensation grossly intact, no focal neurologic deficits. 10.Psych: (AAO) x3. Appropriate mood and affect Course Vital Signs Vital signs: Vital Signs Temperature 37.1 C 09/01/23 11:42 Pulse 92 H 09/01/23 11:42 Respiratory Rate 18 09/01/23 11:42 Blood Pressure 112/85 09/01/23 11:42 Pulse Oximetry 100 09/01/23 11:42 Temperature 37.1 C 09/01/23 11:42 Temperature Source Skin 09/01/23 11:42 Pulse 92 H 09/01/23 11:42 Respiratory Rate 18 09/01/23 11:42 Respiratory Effort Normal 09/01/23 11:45 Blood Pressure 112/85 09/01/23 11:42 Blood Pressure Position Sitting 09/01/23 11:42 Pulse Oximetry 100 09/01/23 11:42 Oxygen Delivery Method Room Air 09/01/23 11:42 Oxygen Flow Rate 0 09/01/23 11:42 Medical Decision Making This is a very pleasant 28-year-old female who presents today for left eye pain. Patient states that she was outside when someone was spraying ant killer pesticide. Some of it drifted through the window and got into her left eye causing some mild irritation. She washed it out multiple times but had some persistent sensation of irritation and came to the ER for further assessment. She admits to minimal change in vision described as mild blurry vision. She denies any color changes otherwise. She denies any other sensation, dark curtain, or other trauma. No other complaints at this time. Her right eye is unaffected. Physical exam demonstrates well-appearing female, no evidence of stain uptake on fluorescein staining for the eye. Eversion of the upper and lower lid shows no foreign bodies. Pupils are reactive. No abnormality on internal exam. Patient otherwise looks well. No evidence of significant atropine or organophosphate exposure. Patient otherwise looks very well clinically. Vision has returned to normal at this stage, no signs of abrasion or other concerning etiology. Patient stable for discharge. Patient will follow-up closely with should be eye care. pH was measured for both eyes, and they are identical at around 7-7.1. Diagnosis scleral irritant secondary to I have extensively reviewed the treatment plan and discharge instructions with the patient. I have addressed all patient concerns at this time. The patient was made aware of what symptoms to monitor for that would warrant a return to the emergency department. Discussed the plan with the patient, they demonstrate verbal understanding and agreement with our assessment and plan at this time. The documentation in this chart was dictated using [employer] dictation software. Please excuse any dictation errors. Quality:SDOH Health Related Social Needs: Health related social needs transpo insecurity Health related social needs details NA PFSH All Active Problems Irritation of left eye (Acute) Contraception (Acute) 08/2023. 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 Palpitations 07/2021-normal Holter. Stopped in 2021 Depression Not active symptoms. PTSD (post-traumatic stress disorder) Globus sensation No significant past medical history Surgical History [place] teeth extracted 06/2012 No significant past surgical history Family History Mother Thyroid disorder Social History Smoking/Tobacco Use Status: Former Tobacco Use tobacco type: cigarettes Quit Date: 04/11/14 Tobacco: How many years used: 8 Second Hand Exposure: Yes Smoking risk assessment performed?: Yes Alcohol Intake: never Drug use: Occasionally Substance use type: marijuana Household members: significant other and children Housing: house Number of Children: 2 Frequency: 5-6 times per week Seatbelt use: always Do you feel safe at home: Yes Do you feel safe in your relationship?: Yes History History 4 Para 2 Hx # Term Pregnancies 2 Multiple births Hx # Pregnancies Ectopic pregnancies AB induced Hx Number of Living Children 2 AB spontaneous 2
[2023-09-01] MEDS: Fluorescein STRIPS 100/BOX 1 MG (12:12)
[2023-09-01] MEDS: Tetracaine 0.5% 4 ML BTL (12:13)
== END 2023-09-01 12:15 | disposition home or self-care (01) ==
PROVIDERS: Emergency Provider Student in an Organized Health Care Education/Training Program; PCP Nurse Practitioner Family
DX: H57.89 Other specified disorders of eye and adnexa (principal); Z77.098 Contact with and (suspected) exposure to other hazardous, chiefly nonmedicinal, chemicals
CPT/HCPCS: 99283

== ENCOUNTER 2023-09-10 08:21 | Emergency (ER) | payer MEDICAID, SELFPAY ==
[2023-09-10 08:27] VITALS: BP 145/76; PULSE 94; RESP 18; TEMP 36.6; O2SAT 100
[2023-09-10 08:35] VITALS: BP 145/76; PULSE 94; RESP 18; TEMP 36.6; O2SAT 100
[2023-09-10 08:50] LABS: Abs Immature Grans 0.03 10^3/uL (0.0-0.06); Absolute Basophil Count 0.05 10^3/uL (0.0-0.2); Absolute Eosinophil Count 0.26 10^3/uL (0.0-0.7); Absolute Lymphocyte Count 1.85 10^3/uL (1.2-3.4); Absolute Monocyte Count 0.51 10^3/uL (0.1-0.8); Absolute Neutrophil Count 4.79 10^3/uL (1.2-6.7); Basophils % 0.7 %; Eosinophils % 3.5 %; HCT 37.6 % (36.0-46.0); HGB 12.5 g/dL (11.2-15.7); Immature Grans % 0.4 %; Lymphocytes % 24.7 %; MCH 27.5 pg (27.0-33.0); MCHC 33.2 % (32.0-36.0); MCV 83 fL (80-95); MPV 9.5 fL (8.0-11.0); Monocytes % 6.8 %; Neutrophils % 63.9 %; Platelet Count 433 10^3/uL (130-400); RBC 4.54 10^6/uL (3.93-5.22); RDW 13.1 % (11.7-14.6); RDW-SD 39.7 fL; WBC 7.49 10^3/uL (4.4-10.8)
[2023-09-10 08:54] LABS: Bilirubin Negative (Negative); Blood Negative (Negative); Clarity Clear (Clear); Glucose Negative (Negative); Ketones Negative (Negative); Leukocyte Esterase Negative (Negative); Nitrite Negative (Negative); Specific Gravity 1.025 (1.005-1.025); Urobilinogen 0.2 mg/dL (Up to 0.2)
--- NOTE | 2023-09-10 09:02 | W.ED.GENAD ---
Discharge Plan Disposition Patient Disposition: Home Discharge Details Clinical Impression: Cyst of left ovary Primary Care Provider: Nargis Amezquita ED Provider: Rosemary Vera Home Meds and New Rx's Prescriptions: Continued cholecalciferol (vitamin D3) 250 mcg (10,000 unit) capsule 250 mcg PO DAILY Qty: 90 3RF albuterol sulfate 90 mcg/actuation HFA aerosol inhaler 2 puff inhalation Q6H PRN ibuprofen 600 mg tablet 600 mg PO Q6H PRN (Reason: pain) Qty: 60 0RF hydroxyzine pamoate [Vistaril] 25 mg capsule 50 mg PO Q8H PRN PRN (Reason: Agitation) Qty: 10 0RF fluticasone propionate [24 Hour Allergy Relief] 50 mcg/actuation spray,suspension 1 spray intranasal DAILY PRN Rx Instructions: administer into each nostril Discharge Instructions Instructions: Ovarian Cyst (ED) Additional Instructions: Please call [facility] first thing Tuesday to schedule follow-up appointment in the next couple of weeks for evaluation and management of your ovarian cyst. Your CT scan showed a 1.8 cm cyst on your left ovary. No evidence of constipation. Your magnesium was slightly low today. I recommend that you increase your consumption of foods rich in magnesium such as whole-wheat's, spinach, almond/cashew/peanuts, black beans, and avocado. Return to emergency care if you develop new severe abdominal pain, uncontrollable vomiting, episodes of passing out, or if you are very concerned and need to be rechecked again immediate Referrals: [facility] [Provider Group] HPI General Date/Time Provider Initiated Documentation: 09/10/23 08:23. HPI Narrative: Renetta is a 28 year old female who presents to the emergency department today for evaluation of left-sided abdominal pain with left-sided bloating, nausea, diarrhea, and decreased appetite. She reports that she had ovarian cyst removal on the right side on 08/19/2023, has not needed any Percocet since 8 days postop. Couple of days ago she developed diarrhea, has had multiple episodes of diarrhea. She did stop taking her Colace a few days after starting the diarrhea. Denies blood/black/tarry stools. Denies fever/chills, viral symptoms such as congestion/sore throat/cough, vomiting, change in urine output, unusual vaginal discharge. Incision sites are healing well. She spoke to GIFT SHOP MANAGER this morning, was advised to come to the emergency department to get this checked out. Denies other abdominal surgeries or significant past medical history. Related Data Home Medications Medication Instructions Recorded Confirmed cholecalciferol (vitamin D3) 250 250 mcg PO DAILY #90 caps 05/12/22 09/10/23 mcg (10,000 unit) capsule albuterol sulfate 90 mcg/actuation 2 puff inhalation Q6H PRN 05/17/23 09/10/23 aerosol inhaler ibuprofen 600 mg tablet 600 mg PO Q6H PRN pain #60 tabs 08/20/23 09/10/23 hydroxyzine pamoate 25 mg capsule 50 mg (2 x 25 mg) PO Q8H PRN PRN 08/30/23 09/10/23 (Vistaril) Agitation #10 caps fluticasone propionate 50 1 spray intranasal DAILY PRN 09/10/23 09/10/23 mcg/actuation nasal spray,suspension (24 Hour Allergy Relief) Previous Rx's Medication Instructions Recorded cholecalciferol (vitamin D3) 250 250 mcg PO DAILY #90 caps 05/12/22 mcg (10,000 unit) capsule ibuprofen 600 mg tablet 600 mg PO Q6H PRN pain #60 tabs 08/20/23 hydroxyzine pamoate 25 mg capsule 50 mg (2 x 25 mg) PO Q8H PRN PRN 08/30/23 (Vistaril) Agitation #10 caps Allergies Allergy/AdvReac Type Severity Reaction Status Date / Time corn Allergy Severe Wheezing Verified 09/10/23 08:33 birch Allergy Severe Wheezing Uncoded 09/10/23 08:33 General Stated Complaint: Abd Prob MARTA: 3 Review of Systems Narrative: see HPI Exam Const General: cooperative, healthy appearing, comfortable, no acute distress, well developed and well groomed Resp Effort & Inspection: normal respiratory effort and able to speak in complete sentences Auscultation: clear to auscultation bilaterally Cardio Rate: regular rate Rhythm: regular rhythm GI Inspection: normal to inspection, no abdominal wall ecchymosis, no edema and non-distended Palpation: soft, not rigid and tender (mild LUQ and LLQ) Auscultation: normal bowel sounds Psych Mood: anxious mood Course Vital Signs Vital signs: Vital Signs Temperature 36.6 C 09/10/23 08:27 Pulse 94 H 09/10/23 08:27 Respiratory Rate 18 09/10/23 08:27 Blood Pressure 145/76 H 09/10/23 08:27 Pulse Oximetry 100 09/10/23 08:27 Temperature 36.6 C 09/10/23 08:35 Temperature Source Tympanic 09/10/23 08:35 Pulse 94 H 09/10/23 08:35 Respiratory Rate 18 09/10/23 08:35 Respiratory Effort Normal 09/10/23 08:38 Blood Pressure 145/76 H 09/10/23 08:35 Blood Pressure Position Sitting 09/10/23 08:35 Pulse Oximetry 100 09/10/23 08:35 Oxygen Delivery Method Room Air 09/10/23 08:35 Oxygen Flow Rate 0 09/10/23 08:27 Pain Level 5 09/10/23 08:35 Comment no OTC meds today 09/10/23 08:35 Lab/Test Results Lab/Test Results: Laboratory Tests Range/Units 09/10/23 09/10/23 08:37 08:47 WBC (4.4-10.8) 10^3/uL 7.49 RBC (3.93-5.22) 10^6/uL 4.54 Hgb (11.2-15.7) g/dL 12.5 Hct (36.0-46.0) % 37.6 MCV (80-95) fL 83 MCH (27.0-33.0) pg 27.5 MCHC (32.0-36.0) % 33.2 RDW (11.7-14.6) % 13.1 Plt Count (130-400) 10^3/uL 433 H MPV (8.0-11.0) fL 9.5 Immature Gran % % 0.4 Neutrophils % % 63.9 Lymphocytes % % 24.7 Monocytes % % 6.8 Eosinophils % % 3.5 Basophils % % 0.7 Nucleated RBC % (0.0-0.3) % 0.0 Absolute Neutrophils (1.2-6.7) 10^3/uL 4.79 Absolute Lymphocytes (1.2-3.4) 10^3/uL 1.85 Absolute Monocytes (0.1-0.8) 10^3/uL 0.51 Absolute Eosinophils (0.0-0.7) 10^3/uL 0.26 Absolute Basophils (0.0-0.2) 10^3/uL 0.05 Urine Color (Yellow) Yellow Urine Clarity (Clear) Clear Urine pH (5-8) 6.0 Ur Specific [place] (1.005-1.025) 1.025 Urine Protein (Neg-Trace) mg/dL Negative Urine Ketones (Negative) mg/dL Negative Urine Blood (Negative) Negative Urine Nitrite (Negative) Negative Urine Bilirubin (Negative) Negative Urine Urobilinogen (Up to 0.2) mg/dL 0.2 Ur Leukocyte Esterase (Negative) Negative Urine Glucose (Negative) mg/dL Negative POC- Test(urine) Negative Medical Decision Making Renetta is a 28 year old female who presents to the emergency department today for evaluation of left-sided abdominal pain with left-sided bloating, nausea, diarrhea, and decreased appetite. She reports that she had ovarian cyst removal on the right side on 08/19/2023, has not needed any Percocet since 8 days postop. Couple of days ago she developed diarrhea, has had multiple episodes of diarrhea. She did stop taking her Colace a few days after starting the diarrhea. Denies blood/black/tarry stools. Denies fever/chills, viral symptoms such as congestion/sore throat/cough, vomiting, change in urine output, unusual vaginal discharge. Incision sites are healing well. She spoke to GIFT SHOP MANAGER this morning, was advised to come to the emergency department to get this checked out. Denies other abdominal surgeries or significant past medical history. Physical exam very reassuring. Patient occasionally tearful during interview. Abdomen is soft, nondistended, mild tenderness palpation of left upper and lower quadrants. No abdominal asymmetry noted, ecchymosis, rigidity, or guarding. Normoactive bowel sounds. Easy work of breathing, lung sounds clear bilaterally. Normal heart sounds. DDx includes but is not limited to: Postop diarrhea associated with opioid cessation/Colace use, partial bowel obstruction, gastroenteritis, intra-abdominal infection less likely, dehydration, electrolyte imbalance, ovarian cyst, uterine pathology I independently interpreted the following tests: [id number] hCG negative. CBC, CMP, lipase, UA all reassuring. Magnesium slightly low at 1.7 While in the emergency department Renetta received IV Zofran, Toradol, and famotidine with full improvement of symptoms. CT abdomen/pelvis remarkable for new 1.8 cm left ovarian cyst since previous CT scan on 08/21/2023. History and presentation today consistent with ovarian cyst. No red flags at this time for serious complications such as ovarian torsion at this time requiring surgical consult or inpt admission. Reviewed findings with patient, including importance of follow-up with women's wellness and red flags indicate need for return to emergency care. She is agreeable with plan of care. Imaging Data Radiologic Study: Radiologist's impression: Exam(s) CT ABDOMEN PELVIS W EXAM: CT ABDOMEN PELVIS W CLINICAL HISTORY: L sided abd pain TECHNIQUE: Imaging Protocol: Axial computed tomography images with coronal and sagittal reformatted images were created and reviewed. CONTRAST MATERIAL: Intravenous: Omnipaque contrast volume:99 mL Oral: No COMPARISON: CT CT ABDOMEN PELVIS W from 08/19/[address] ABDOMEN PELVIS W from 08/21/2023 FINDINGS: ABDOMEN: Lung Bases: Normal where visualized. Liver: Normal density. No measurable mass. Portal, Superior Mesenteric, and Splenic Veins: Unremarkable. Gallbladder and Biliary Tract: No radiodense calculus or dilation. Pancreas: Normal density, no abnormal calcifications or inflammatory process. Spleen: Normal. Adrenals: No masses seen. Kidneys: Normal size, contour and axis. No radiodense stones or obstructive uropathy. No masses seen. Abdominal Aorta: Abdominal portion non-dilated. Bowel: No obstruction or bowel wall thickening. No evidence of appendicitis. Peritoneal Cavity: No ascites, collection or mesenteric inflammatory response. No free air. Lymph Nodes: Within normal limits. Bones: Within normal limits for the patient's age. Soft Tissues: Unremarkable. PELVIS: Bladder: Symmetric distention, no gross wall thickening. Reproductive Organs: There is a 1.8 cm cyst on the left ovary. Reproductive organs are otherwise unremarkable. Lymph Nodes: Within normal limits. Bones: Within normal limits for the patient's age. IMPRESSION: 1. No acute abdominal or pelvic process. 2. 1.8 cm left ovarian cyst. Quality:SDOH Health Related Social Needs: Health related social needs transpo insecurity Health related social needs details NA [facility] All Active Problems (Updated 09/10/23 @ 11:04 by Rosemary Sr) Cyst of left ovary (Acute) Irritation of left eye (Acute) Contraception (Acute) 08/2023. plans vasectomy Postop check (Acute) Post-op pain (Acute) Hx of ovarian cystectomy (Acute) Pelvic pain (Acute) Anxiety (Chronic) Vitamin D deficiency (Acute) Iron deficiency anemia (Acute 11/15/13) 07/2021, HCT-34 Vimal's thyroiditis (Acute) 01/2021- enlarged thyroid, positive AB,euthyroid Medical History (Updated 09/10/23 @ 11:04 by Rosemary Sr) Encounter for removal of intrauterine contraceptive device Panic attack (08/23/13) Does not have any more. Palpitations 07/2021-normal Holter. Stopped in 2021 Depression Not active symptoms. PTSD (post-traumatic stress disorder) Globus sensation No significant past medical history Surgical History [place] teeth extracted 06/2012 No significant past surgical history Family History Mother Thyroid disorder Social History Smoking/Tobacco Use Status: Former Tobacco Use tobacco type: cigarettes Quit Date: 04/11/14 Tobacco: How many years used: 8 Second Hand Exposure: Yes Smoking risk assessment performed?: Yes Alcohol Intake: never Drug use: Occasionally Substance use type: marijuana Household members: significant other and children Housing: house Number of Children: 2 Frequency: 5-6 times per week Seatbelt use: always Do you feel safe at home: Yes Do you feel safe in your relationship?: Yes History History 4 Para 2 Hx # Term Pregnancies 2 Multiple births Hx # Pregnancies Ectopic pregnancies AB induced Hx Number of Living Children 2 AB spontaneous 2
[2023-09-10 09:05] LABS: ALT 21 U/L (14-59); AST 16 U/L (15-37); Albumin 4.1 g/dL (3.4-5.0); Alkaline Phosphatase 81 U/L (46-116); Anion Gap 8.8 mmol/L (3-11); BUN 18 mg/dL (7-18); Bilirubin, Total 0.2 mg/dL (0.2-1.0); CO2 27.2 mmol/L (21.0-32.0); CREATININE 0.9 mg/dL (0.55-1.02); Calcium 8.9 mg/dL (8.5-10.1); Chloride 103 mmol/L (98-107); Estimated GFR 88.75 (mL/min/1.73m2); Glucose 72 mg/dL (74-106); Magnesium 1.7 mg/dL (1.8-2.4); Sodium 139 mmol/L (136-145); Total Protein 8.2 g/dL (6.4-8.2)
[2023-09-10] MEDS: Famotidine 20 MG/2 ML VIAL IVP (09:13)
[2023-09-10] MEDS: Ondansetron 4 MG/2 ML VIAL IVP (09:13)
[2023-09-10] MEDS: Ketorolac 15 MG/ML VIAL IVP (09:13)
[2023-09-10] MEDS: Normal Saline - Diluent 50 ML VIAL IJ (09:20)
[2023-09-10] MEDS: Omnipaque 350 MG/ML 100 ML BTL IJ (09:23)
[2023-09-10 09:24] LABS: Lipase 35 U/L (16-77)
--- NOTE | 2023-09-10 09:28 | DI.CT_ITS ---
Exam(s) CT ABDOMEN PELVIS W EXAM: CT ABDOMEN PELVIS W CLINICAL HISTORY: L sided abd pain TECHNIQUE: Imaging Protocol: Axial computed tomography images with coronal and sagittal reformatted images were created and reviewed. CONTRAST MATERIAL: Intravenous: Omnipaque contrast volume:99 mL Oral: No COMPARISON: CT CT ABDOMEN PELVIS W from 08/19/[address] ABDOMEN PELVIS W from 08/21/2023 FINDINGS: ABDOMEN: Lung Bases: Normal where visualized. Liver: Normal density. No measurable mass. Portal, Superior Mesenteric, and Splenic Veins: Unremarkable. Gallbladder and Biliary Tract: No radiodense calculus or dilation. Pancreas: Normal density, no abnormal calcifications or inflammatory process. Spleen: Normal. Adrenals: No masses seen. Kidneys: Normal size, contour and axis. No radiodense stones or obstructive uropathy. No masses seen. Abdominal Aorta: Abdominal portion non-dilated. Bowel: No obstruction or bowel wall thickening. No evidence of appendicitis. Peritoneal Cavity: No ascites, collection or mesenteric inflammatory response. No free air. Lymph Nodes: Within normal limits. Bones: Within normal limits for the patient's age. Soft Tissues: Unremarkable. PELVIS: Bladder: Symmetric distention, no gross wall thickening. Reproductive Organs: There is a 1.8 cm cyst on the left ovary. Reproductive organs are otherwise unr emarkable. Lymph Nodes: Within normal limits. Bones: Within normal limits for the patient's age. IMPRESSION: 1. No acute abdominal or pelvic process. 2. 1.8 cm left ovarian cyst. RADIATION DOSE DELIVERED: 1,038.44mGy.cm Total DLP DATA REPOSITORY: All CT scans at this facility are submitted to the National Radiology Data Registry (NRDR) Dose Index Registry (DIR) with the [employer] (ACR). RADIATION OPTIMIZATION: All CT scans at this facility use at least one of these dose optimization te chniques: automated exposure control; mA and/or kV adjustment per patient size (includes targeted exa ms where dose is matched to clinical indication); or iterative reconstruction.
--- NOTE | 2023-09-10 11:02 | NUR.NOTE ---
Referral given to Care Managers to assist Pt with [facility] C[facility] within 2 weeks
[2023-09-10 11:14] VITALS: BP 140/70; PULSE 78; RESP 16; TEMP 36.6; O2SAT 100
== END 2023-09-10 11:16 | disposition home or self-care (01) ==
PROVIDERS: Emergency Provider Nurse Practitioner Family; PCP Nurse Practitioner Family
DX: N83.202 Unspecified ovarian cyst, left side; R19.7 Diarrhea, unspecified; Z98.890 Other specified postprocedural states
CPT/HCPCS: 36415; 80053; 81025; 83690; 96374; 96375; 99285; 74177; 81003; 83735; 85025; J1885; J2405; J3490

== ENCOUNTER 2023-09-21 01:39 | Outpatient (CLI) | payer MEDICAID, SELFPAY ==
[2023-09-21 14:26] LABS: TSH 1.57 uIU/Ml (0.36-3.74)
== END 2023-09-21 01:40 | disposition home or self-care (01) ==
LOC: LBO 01:39
PROVIDERS: PCP Nurse Practitioner Family; Visit Provider Internal Medicine Endocrinology, Diabetes & Metabolism
DX: E55.9 Vitamin D deficiency, unspecified (principal); E06.3 Autoimmune thyroiditis
CPT/HCPCS: 36415; 82306; 84443

== ENCOUNTER → 2023-10-04 11:07 | Outpatient (CLI) | payer MEDICAID, SELFPAY ==
--- NOTE | 2023-10-04 08:15 | DI.US_ITS ---
Exam(s) US PELVIS TRANSVAGINAL EXAM: US PELVIS TRANSVAGINAL CLINICAL HISTORY: pelvic pain. recent hx of ovarian cyst, R10.2, Z98.890, Z87.42 TECHNIQUE: Transabdominal and transvaginal imaging was performed using standard protocol. COMPARISON: CT CT ABDOMEN PELVIS W from 09/10/2023 FINDINGS: UTERUS: Anteverted. 7.3 x 4.3 x 5.6 cm Endometrium: 5.5 mm Myometrium: Unremarkable. Cervix: Unremarkable. OVARIES: Right: Cyst or mass: None. Left: Cyst or mass: None. DOPPLER: Color: Symmetric and uniform flow to both ovaries. No hyperemia. CUL-DE-SAC: Free fluid: None. IMPRESSION: 1. Normal-appearing uterus with endometrial stripe within normal limits. 2. Unremarkable bilateral ovaries. DATA REPOSITORY:
== END ==
PROVIDERS: PCP Nurse Practitioner Family; Visit Provider Obstetrics & Gynecology Gynecology
DX: R10.2 Pelvic and perineal pain (principal); Z98.890 Other specified postprocedural states; Z87.42 Personal history of other diseases of the female genital tract
CPT/HCPCS: 76830; 76856

== ENCOUNTER 2023-12-15 03:31 | Outpatient (CLI) | payer MEDICAID, SELFPAY ==
[2023-12-15 13:06] LABS: TSH 1.03 uIU/Ml (0.36-3.74); Vitamin D 25 Total 25.8 ng/mL (30-100)
== END 2023-12-15 03:32 | disposition home or self-care (01) ==
LOC: LBO 03:32
PROVIDERS: PCP Nurse Practitioner Family; Visit Provider Internal Medicine Endocrinology, Diabetes & Metabolism
DX: E06.3 Autoimmune thyroiditis (principal); E55.9 Vitamin D deficiency, unspecified
CPT/HCPCS: 36415; 82306; 84443

== ENCOUNTER 2024-02-12 10:09 | Emergency (ER) | payer MEDICAID, SELFPAY ==
[2024-02-12 10:24] VITALS: BP 120/74; PULSE 68; RESP 18; TEMP 36.8; O2SAT 100
--- NOTE | 2024-02-12 10:32 | ED.GENADUL_ITS ---
Discharge Plan Disposition Patient Disposition: Home Condition: Stable Discharge Details Clinical Impression: Acute ear pain, Viral upper respiratory infection Primary Care Provider: Nargis Amezquita ED Provider: Kaela Arnold Home Meds and New Rx's Prescriptions: No Action drospirenone-ethinyl estradiol [ANUJ (28)] 3-0.02 mg tablet 1 tab PO DAILY Qty: 84 4RF Rx Instructions: begin immediately hydroxyzine HCl 25 mg tablet 25 mg PO QID PRN (Reason: itching) Qty: 30 2RF cholecalciferol (vitamin D3) 250 mcg (10,000 unit) capsule 250 mcg PO DAILY Qty: 90 3RF albuterol sulfate 90 mcg/actuation HFA aerosol inhaler 2 puff inhalation Q6H PRN hydroxyzine pamoate [Vistaril] 25 mg capsule 50 mg PO Q8H PRN PRN (Reason: Agitation) Qty: 60 5RF ibuprofen 600 mg tablet 600 mg PO Q6H PRN (Reason: pain) Qty: 60 0RF fluticasone propionate [24 Hour Allergy Relief] 50 mcg/actuation spray,suspension 1 spray intranasal DAILY PRN Rx Instructions: administer into each nostril Discharge Instructions Instructions: Ear Pain ED Additional Instructions: You were seen in the emergency department today for evaluation of ear pain, after recent cold. In our department you have a full physical examination performed, and do not have any evidence of otitis media, the formal name for an ear infection. You do not require antibiotics, and you can continue to take your qtya-ide-rmwisol medications including Sudafed, Tylenol, and ibuprofen. Please maintain good hydration and nutrition, and follow-up with your primary care provider in the next few days to discuss any symptoms that change, worsen, or persist. Thank you for allowing us to be part of your care. HPI General Mode of arrival: ambulatory . Date/Time Provider Initiated Documentation: 02/12/24 10:11 . Limitations to Documentation: no limitations . Information obtained by: patient and old records reviewed . HPI Narrative: HPI: This is a 28-year-old female patient with a past medical history significant for Vimal's thyroiditis, anemia, and anxiety who is presenting for evaluation of ear pain and upper respiratory symptoms. She reports that she has been sick with a common cold, had some nasal congestion and runny nose, and 2 or 3 days ago developed pain running down from her ears in the area of her eustachian tubes. She reports that she has been managing her pain at home with Tylenol and ibuprofen, but wanted to ensure that she was not developing an ear infection. She reports that her left ear hurts with right, she is not experiencing any fevers at home, changes in hearing, difficulty maintaining her p.o. Intake. She states that she has had no shortness of breath, chest pain, or other concerning symptoms. She is fully vaccinated. Exam: Gen: Awake and alert, in no apparent distress HEENT: Non-icteric sclera, conjunctiva not injected. Bilateral TMs are clear without bulging, effusion, and there is no evidence of otitis externa. She has no mastoid tenderness nor displacement of the pinna, has mildly tender cervical lymphadenopathy. Posterior pharynx is without erythema, exudate, or asymmetry. Neck: Supple Lungs: No apparent respiratory distress, normal respiratory effort. CV: Appears well perfused, strong distal pulses Abdomen: Non-distended MSK: Moves 4 extremities without apparent limitation in ROM Skin: Visualized skin without rashes, cyanosis. Neuro: Normal Gait, no obvious focal deficits or facial asymmetry. Speaks in full, clear sentences. Psych: Appropriate for situation. MDM: This is a 28-year-old female patient presenting for evaluation of ear pain. My differential includes but is not limited to viral upper respiratory infection. The patient has no evidence on my physical examination for otitis media, otitis externa, mastoiditis. I see no evidence of severe pharyngitis, [employer], and the patient is well, afebrile, and hemodynamically appropriate. She is maintaining her oral intake and I have a low concern for metabolic or electrolyte derangement, kidney injury. ED Course: Findings were shared with the patient, who is comfortable continuing conservative management with [id number] medications. She will maintain good hydration and nutrition, and follow-up with her primary care provider with any changes. At this time, the patient has had a full medical evaluation and is safe for discharge to home. They are hemodynamically stable, ambulatory, and tolerating PO. They are understanding of the follow-up plan and return precautions. They left our facility without incident. Kaela Arnold MD Related Data Home Medications ?Medication ?Instructions ?Recorded ?Confirmed cholecalciferol (vitamin D3) 250 250 mcg PO DAILY #90 caps 02/01/23 11/03/24 mcg (10,000 unit) capsule albuterol sulfate 90 mcg/actuation 2 puff inhalation Q6H PRN 05/17/23 02/12/24 aerosol inhaler ibuprofen 600 mg tablet 600 mg PO Q6H PRN pain #60 tabs 08/20/23 02/12/24 fluticasone propionate 50 1 spray intranasal DAILY PRN 09/10/23 02/12/24 mcg/actuation nasal spray,suspension (24 Hour Allergy Relief) drospirenone 3 mg-ethinyl 1 tab PO DAILY #84 tabs 09/14/23 02/12/24 estradiol 0.02 mg tablet (ANUJ (28)) hydroxyzine HCl 25 mg tablet 25 mg PO QID PRN itching #30 tabs 09/14/23 02/12/24 hydroxyzine pamoate 25 mg capsule 50 mg (2 x 25 mg) PO Q8H PRN PRN 10/17/23 02/12/24 (Vistaril) Agitation #60 caps Previous Rx's ?Medication ?Instructions ?Recorded cholecalciferol (vitamin D3) 250 250 mcg PO DAILY #90 caps 05/12/22 mcg (10,000 unit) capsule ibuprofen 600 mg tablet 600 mg PO Q6H PRN pain #60 tabs 08/20/23 drospirenone 3 mg-ethinyl 1 tab PO DAILY #84 tabs 09/14/23 estradiol 0.02 mg tablet (ANUJ (28)) hydroxyzine HCl 25 mg tablet 25 mg PO QID PRN itching #30 tabs 09/14/23 hydroxyzine pamoate 25 mg capsule 50 mg (2 x 25 mg) PO Q8H PRN PRN 10/17/23 (Vistaril) Agitation #60 caps Allergies Allergy/AdvReac Type Severity Reaction Status Date / Time corn Allergy Severe Wheezing Verified 02/12/24 10:29 birch Allergy Severe Wheezing Uncoded 02/12/24 10:29 General Stated Complaint: EarProblem MARTA: 4 Course Vital Signs Vital signs: Vital Signs Temperature 36.8 C 02/12/24 10:24 Pulse 68 02/12/24 10:24 Respiratory Rate 18 02/12/24 10:24 Blood Pressure 120/74 11/03/24 10:24 Pulse Oximetry 100 02/12/24 10:24 Temperature 36.8 C 02/12/24 10:24 Pulse 68 02/12/24 10:24 Respiratory Rate 18 02/12/24 10:24 Respiratory Effort Normal 02/12/24 10:25 Blood Pressure 120/74 02/12/24 10:24 Pulse Oximetry 100 02/12/24 10:24 Pain Level 4 02/12/24 10:24 Medical Decision Making Quality:SDOH Health Related Social Needs: Health related social needs transportation insecurity( Z59.82) Health related social needs details NA PFSH All Active Problems (Updated 02/12/24 @ 10:33 by Kaela Arnold MD) Viral upper respiratory infection (Acute) Acute ear pain (Acute) Contraception, generic surveillance (Acute) 09/14/23. NuvaRing. Insomnia (Acute) Anxiety (Chronic) 09/14/23 Hydroxyzine. PRN Vitamin D deficiency (Acute) Iron deficiency anemia (Acute 11/15/13) 07/2021, HCT-34 Vimal's thyroiditis (Acute) 01/2021- enlarged thyroid, positive AB,euthyroid Medical History (Updated 02/12/24 @ 10:33 by Kaela Arnold MD) Encounter for removal of intrauterine contraceptive device Panic attack (08/23/13) Does not have any more. Palpitations 07/2021-normal Holter. Stopped in 2021 Depression Not active symptoms. PTSD (post-traumatic stress disorder) Globus sensation Surgical History (Updated 10/17/23 @ 12:44 by Josey Banks MD) Hx of ovarian cystectomy [place] teeth extracted 06/2012 No significant past surgical history Family History Mother Thyroid disorder Social History Smoking/Tobacco Use Status: Former Tobacco Use tobacco type: cigarettes Quit Da te: 04/11/14 Tobacco: How many years used: 8 Second Hand Exposure: Yes Smoking risk assessment performed?: Yes Alcohol Intake: never Drug use: Occasionally Substance use type: marijuana Household members: significant other and children Housing: house Number of Children: 2 Frequency: 5-6 times per week Seatbelt use: always Do you feel safe at home: Yes Do you feel safe in your relationship?: Yes History History 4 Para 2 Hx # Term Pregnancies 2 Multiple births Hx # Pregnancies Ectopic pregnancies AB induced Hx Number of Living Children 2 AB spontaneous 2
== END 2024-02-12 10:40 | disposition home or self-care (01) ==
PROVIDERS: Emergency Provider Emergency Medicine; PCP Nurse Practitioner Family
DX: H92.03 Otalgia, bilateral (principal); J06.9 Acute upper respiratory infection, unspecified; B97.89 Other viral agents as the cause of diseases classified elsewhere; E06.3 Autoimmune thyroiditis; Z87.891 Personal history of nicotine dependence
CPT/HCPCS: 99283

== ENCOUNTER 2024-02-15 03:57 | Outpatient (CLI) | payer MEDICAID, SELFPAY ==
[2024-02-15 10:11] LABS: TSH (W/Ref FT4) 0.82 uIU/mL (0.36-3.74); Vitamin B12 325 pg/mL (193-986); Vitamin D 25 Total 34.3 ng/mL (30-100)
== END 2024-02-15 03:58 | disposition home or self-care (01) ==
LOC: LBO 03:57
PROVIDERS: PCP Nurse Practitioner Family; Visit Provider Internal Medicine Endocrinology, Diabetes & Metabolism
DX: E06.3 Autoimmune thyroiditis (principal); E55.9 Vitamin D deficiency, unspecified
CPT/HCPCS: 36415; 82306; 82607; 84443

== ENCOUNTER 2024-05-04 01:47 | Outpatient (CLI) | payer MEDICAID, SELFPAY ==
[2024-05-04 14:09] LABS: TSH 2.21 uIU/mL (0.36-3.74)
[2024-05-07 23:17] LABS: Vitamin D 25 Total 42.6 ng/mL (30-100)
== END 2024-05-04 01:48 | disposition home or self-care (01) ==
LOC: LBO 01:47
PROVIDERS: PCP Nurse Practitioner Family; Visit Provider Internal Medicine Endocrinology, Diabetes & Metabolism
DX: E06.3 Autoimmune thyroiditis (principal); E55.9 Vitamin D deficiency, unspecified
CPT/HCPCS: 36415; 82306; 84443

== ENCOUNTER 2024-06-07 10:48 | Outpatient (REF) | payer MEDICAID, SELFPAY ==
--- NOTE | 2024-06-07 10:20 | PAPFT_PTH ---
PATIENT: Renetta Colindres LOC: [facility] U#:[id number] AGE/SX: 28/F ROOM: RE06/07/[address]: Miracle Perez DO : 1995 BED: DIS: 06/07/2024 SPEC #: [id number] RECD: 06/07/24 13:00 STATUS: SYDNIE RETevin #: [id number] DUNIA: 06/07/24 10:[address]: Miracle Perez DEPT: [facility] Cytology RECD BY: Brenda Santana ENTERED: 06/07/24 13:01 SP TYPE: PAPFT OTHR DR: Nargis Amezquita, GAYLE Tissues: 1 - CX/ENDOCX FOR PAP SMEARS Procedures: PAP THIN PREP/UVM Screening HPV DNA PROBE Comments: [id number] (HPV 16 & 18/45) (CHLAMYDIA/GC)
[2024-06-08 11:54] LABS: Chlamydia Result Negative (Negative); GC Result Negative (Negative)
== END 2024-06-07 10:49 | disposition home or self-care (01) ==
LOC: LBN 10:48
PROVIDERS: PCP Nurse Practitioner Family; Visit Provider Obstetrics & Gynecology
DX: Z01.419 Encounter for gynecological examination (general) (routine) without abnormal findings (principal)
CPT/HCPCS: 87491; 87591; 88142; 87624

== ENCOUNTER 2024-06-14 02:59 | Outpatient (CLI) | payer MEDICAID, SELFPAY ==
[2024-06-14 10:07] LABS: TSH (W/Ref FT4) 1.72 uIU/mL (0.36-3.74); Vitamin B12 828 pg/mL (193-986); Vitamin D 25 Total 35.7 ng/mL (30-100)
== END 2024-06-14 03:00 | disposition home or self-care (01) ==
PROVIDERS: PCP Nurse Practitioner Family; Visit Provider Internal Medicine Endocrinology, Diabetes & Metabolism
DX: E06.3 Autoimmune thyroiditis (principal); E55.9 Vitamin D deficiency, unspecified
CPT/HCPCS: 36415; 82306; 82607; 84443

== ENCOUNTER 2024-08-06 00:43 | Outpatient (CLI) | payer MEDICAID, SELFPAY ==
[2024-08-06 17:13] LABS: Vitamin B12 383 pg/mL (193-986); Vitamin D 25 Total 30 ng/mL (30-100)
[2024-08-06 17:33] LABS: FREE T4 0.97 ng/dL (0.76-1.46)
[2024-08-06 23:07] LABS: T3, Total 163 ng/dL (97-169)
== END 2024-08-06 00:44 | disposition home or self-care (01) ==
LOC: LBO 00:43
PROVIDERS: PCP Nurse Practitioner Family; Visit Provider Internal Medicine Endocrinology, Diabetes & Metabolism
DX: E06.3 Autoimmune thyroiditis (principal); E55.9 Vitamin D deficiency, unspecified
CPT/HCPCS: 36415; 82306; 82607; 84439; 84443; 84480

== ENCOUNTER 2024-09-12 02:38 | Outpatient (CLI) | payer MEDICAID, SELFPAY ==
[2024-09-12 13:29] LABS: FREE T4 1.05 ng/dL (0.76-1.46); TSH (W/Ref FT4) 1.34 uIU/mL (0.36-3.74)
[2024-09-12 14:03] LABS: Calculated LDL 131 mg/dL (<100); Cholesterol 205 mg/dL (<200); HDL Cholesterol 50 mg/dL (>or=50); Triglyceride 121 mg/dL (<150); Vitamin D 25 Total 32 ng/mL (30-100)
[2024-09-12 22:10] LABS: T3, Total 137 ng/dL (97-169)
== END 2024-09-12 02:39 | disposition home or self-care (01) ==
PROVIDERS: PCP Nurse Practitioner Family; Visit Provider Internal Medicine Endocrinology, Diabetes & Metabolism
DX: E06.3 Autoimmune thyroiditis (principal); E55.9 Vitamin D deficiency, unspecified; R22.1 Localized swelling, mass and lump, neck
CPT/HCPCS: 36415; 80061; 82306; 84439; 84443; 84480

== ENCOUNTER 2024-12-19 04:33 | Outpatient (CLI) | payer MEDICAID, SELFPAY ==
[2024-12-19 12:21] LABS: HCG Quant, Pregnancy < 1 mIU/mL (1-3)
[2024-12-19 12:59] LABS: Calculated LDL 105 mg/dL (<100); Cholesterol 194 mg/dL (<200); HDL Cholesterol 41 mg/dL (>or=50); TSH 2.56 uIU/mL (0.36-3.74); Triglyceride 244 mg/dL (<150); Vitamin D 25 Total 33 ng/mL (30-100)
[2024-12-19 23:51] LABS: T3, Total 148 ng/dL (97-169)
== END 2024-12-19 04:34 | disposition home or self-care (01) ==
PROVIDERS: Internal Medicine Endocrinology, Diabetes & Metabolism; PCP Nurse Practitioner Family; Visit Provider Obstetrics & Gynecology
DX: N91.0 Primary amenorrhea (principal); R73.01 Impaired fasting glucose
CPT/HCPCS: 36415; 80061; 82306; 84439; 84443; 84480; 84702

== ENCOUNTER 2024-12-21 03:28 | Outpatient (CLI) | payer MEDICAID, SELFPAY ==
[2024-12-21 18:53] LABS: FSH 7.9 mIU/mL (See Note); LH 5.6 mIU/mL (See Note)
== END 2024-12-21 03:29 | disposition home or self-care (01) ==
LOC: LBO 03:28
PROVIDERS: PCP Nurse Practitioner Family; Visit Provider Obstetrics & Gynecology
DX: N91.0 Primary amenorrhea (principal); E66.9 Obesity, unspecified
CPT/HCPCS: 36415; 83498; 82951; 83001; 83002; 84146